=== PATIENT | female | born 1935 ===

== ENCOUNTER 2016-12-07 02:36 | Observation (INO) | payer MEDICARE, MEDICAID ==
[2016-12-07 02:36] VITALS: BMI 21.6
[2016-12-07] MEDS ORDERED: Sterile Water 10 ML IV ONE (02:46)
[2016-12-07] MEDS ORDERED: Iohexol 240 (50 ml) PO ONE (03:06)
[2016-12-07] MEDS ORDERED: Sodium Chloride 0.9% 1,000 ML IV STA ×2 (03:12→06:44)
--- NOTE | 2016-12-07 03:28 | ED PDOC ---
HPI:Nausea, Vomiting, Diarrhea Time Seen by Provider: 12/07/16 02:40 Chief Complaint (Nursing): GI Problem Chief Complaint (Provider): vomiting History Per: Patient, EMS History/Exam Limitations: no limitations Onset/Duration Of Symptoms: Hrs (2) Current Symptoms Are (Timing): Still Present Have you had recent travel within the past 21 days to any of the following countries: [place], [place], [place] or [place]?: No Additional Complaint(s): 81yo female presents to the ED, sent from [facility], for evaluation of vomiting x 2 hours with abdominal distension. jail reports brown colored fluid with food in vomitus. Of note, patient is DNR and DNI. No other medical complaints. Past Medical History Reviewed: Historical Data, Nursing Documentation, Vital Signs Vital Signs: Last Vital Signs Temp 98.8 F 12/07/16 02:38 Pulse 71 12/07/16 02:38 Resp 14 12/07/16 02:38 BP 131/72 12/07/16 02:38 Pulse Ox 98 12/07/16 02:38 - Medical History PMH: Anxiety, Arthritis, Dementia, Depression, Diabetes, Gastritis, HTN, Hypercholesterolemia, Hypothyroidism, Multiple Sclerosis Denies: CHF, COPD, Chronic Kidney Disease, Rheumatoid Arthritis - Surgical History Surgical History: No Surg Hx - Family History Family History: States: No Known Family Hx - Home Medications Home Medications: Ambulatory Orders Medication Instructions Recorded Acetaminophen [Tylenol 325mg tab] 650 mg PO Q4 PRN 05/21/16 Atorvastatin [Lipitor] 10 mg PO HS 05/21/16 Calcium Carbonate/Vitamin D3 1 tab PO DAILY 05/21/16 [Oyster Shell Calcium Tablet] Docusate Sodium 200 mg PO HS 05/21/16 Gabapentin [Neurontin] 300 mg PO TID 05/21/16 Lactulose [Generlac] 30 ml PO HS 05/21/16 Latanoprost 0.005% Opht [Xalatan 1 drop OU HS 05/21/16 Opht] Levothyroxine [Synthroid] 75 mcg PO DAILY 05/21/16 Lipase/Protease/Amylase [Enoch Hess 48,000 units PO TID 05/21/16 24,000 Units Capsule] Magnesium Hydroxide [Milk Of 30 ml PO MWF PRN 05/21/16 Magnesia] [id number] Ethyl Esters [OMEGA 3] 2,000 mg PO BID 05/21/16 Pantoprazole [Protonix EC Tab] 20 mg PO DAILY 05/21/16 Polyethylene Glycol 3350 [Miralax] 17 gm PO DAILY 05/21/16 Propylene Glycol/Peg 400 [Systane 1 drop OU TID 05/21/16 Liquid Gel Eye Drops] Simethicone [Gas Relief] 125 mg PO TID 05/21/16 fentaNYL 75 mcg/hr [Duragesic 1 patch TD Q3D 05/21/16 Patch 75 mcg/hr] Ascorbic Acid [Vitamin C 500 mg 500 mg PO DAILY 11/21/16 Tab] Ezetimibe [Zetia] 10 mg PO HS 11/21/16 Insulin Aspart, Recombinant 4 unit SUBCUT DIN 11/21/16 [Novolog] Linagliptin [Tradjenta] 5 mg PO DAILY 11/21/16 Multivitamin [One Daily 1 tab PO DAILY 11/21/16 Multivitamin] Acetaminophen [Tylenol 325mg tab] 650 mg PO Q4 PRN 12/07/16 Benzocaine/Menthol [Cepacol Sore 1 tab PO Q6 PRN 12/07/16 Throat Lozenge] Dorzolamide 2%/Timolol 0.5% 1 drop OU BID 12/07/16 [Cosopt 2%-0.5% Opht] Morphine [Morphine Immediate 15 mg PO Q12 PRN 12/07/16 Release Tab] Ondansetron HCl [Zofran] 8 mg PO Q8 PRN 12/07/16 Prochlorperazine [Compro] 25 mg [place] Q12 PRN 12/07/16 Sulfamethoxazole/Trimethoprim 1 tab PO Q12 #20 tab 12/08/16 [Bactrim DS Tab] - Allergies Allergies/Adverse Reactions: Allergies Allergy/AdvReac Type Severity Reaction Status Date / Time ciprofloxacin [From Cipro] Allergy RASH Verified 10/07/15 12:02 ciprofloxacin HCl Allergy RASH Verified 10/07/15 12:02 [From Cipro] Review of Systems ROS Statement: Except As Marked, All Systems Reviewed And Found Negative Gastrointestinal: Positive for: Vomiting, Other (abd distension ) Physical Exam - Reviewed Nursing Documentation Reviewed: Yes Vital Signs Reviewed: Yes - Physical Exam Appears: Positive for: No Acute Distress (actively vomiting, vomitus is brown, not dark, no blood ) Head Exam: Positive for: ATRAUMATIC, NORMAL INSPECTION, NORMOCEPHALIC Skin: Positive for: Normal Color, Warm, Dry Eye Exam: Positive for: Normal appearance, EOMI, PERRL ENT: Positive for: Normal ENT Inspection Neck: Positive for: Normal, Painless ROM, Supple Cardiovascular/Chest: Positive for: Regular Rate, Rhythm. Negative for: Murmur , Tachycardia Respiratory: Positive for: Normal Breath Sounds. Negative for: Wheezing, Respiratory Distress Gastrointestinal/Abdominal: Positive for: Soft, Tenderness (diffuse ), Distended Back: Positive for: Normal Inspection. Negative for: L CVA Tenderness, R CVA Tenderness Rectal: Positive for: Other (yellow stool, guaiac negative ) Extremity: Positive for: Normal ROM. Negative for: Deformity, Swelling Neurologic/Psych: Positive for: Alert, Oriented - Laboratory Results Result Diagrams: 12/08/16 05:55 12/08/16 05:55 - ECG O2 Sat by Pulse Oximetry: 98 Pulse Ox Interpretation: Normal (RA) Medical Decision Making Medical Decision Makin: Impression: possible upper GI bleed although unlikely Plan: Labs ABG shock panel CT A/P CXR Morphine 4mg IVP, Pepcid 20mg IVP, Protonix 40mg IVP, Zofran 4mg IVP, IVF reassess After NG tube placement and suctioning of gastric contents patient reports pain has completely resolved and abdomen is less distended. Patient states she does not need morphine. 0636: CT A/P impression: The wall is thickened and indistinct at the rectosigmoid junction it is at least partially due to motion. Clinical correlation recommended with symptoms in this region. Fullness and prominent wall enhancement of the renal collecting systems and ureters similar to prior could be due to chronic infectious/inflammatory etiology. Recommend correlation with urinalysis. 0644: Case discussed with Dr. Chiu who recommends admission for UTI. Scribe Attestation: Documented by Fred Haas acting as a scribe for Mahendra Steele MD. Provider Scribe Attestation: All medical record entries made by the Scribe were at my direction and personally dictated by me. I have reviewed the chart and agree that the record accurately reflects my personal performance of the history, physical exam, medical decision making, and the department course for this patient. I have also personally directed, reviewed, and agree with the discharge instructions and disposition. Disposition - Clinical Impression Clinical Impression: UTI (lower urinary tract infection), Vomiting - Patient ED Disposition Is Patient to be Admitted: Yes Discussed With : Jameson Chiu - Disposition Disposition Time: 06:45 Condition: FAIR
[2016-12-07 03:35] LABS: ABG ALLEN TEST YES; ARTERIAL BLOOD GAS HCO3 28.8 mmol/L (21-28); ARTERIAL BLOOD GAS MODE ROOM AIR; ARTERIAL BLOOD GAS PH 7.44 (7.35-7.45); ARTERIAL BLOOD GAS PO2 85 mm/Hg (80-100)
[2016-12-07] MEDS ORDERED: Iohexol 240 (50 ml) ONE (03:44)
[2016-12-07 03:52] LABS: ALB/GLOB RATIO 1.2 (1.0-2.1); ALKALINE PHOSPHATASE 83 U/L (38-126); ALT/SGPT 49 U/L (9-52); AST/SGOT 41 U/L (14-36); BILIRUBIN,TOTAL 0.6 mg/dl (0.2-1.3); BLOOD UREA NITROGEN 21 mg/dl (7-17); CALCIUM 9.7 mg/dL (8.4-10.2); CARBON DIOXIDE 27 mmol/L (22-30); CHLORIDE 101 mmol/L (98-107); GFR AFRICAN-AMERICAN 58; GLUCOSE,RANDOM 288 mg/dL (65-105); LIPASE 276 U/L (23-300); POTASSIUM 3.4 MMOL/L (3.6-5.0); SODIUM 140 mmol/l (132-148); TOTAL PROTEIN 7.7 G/DL (6.3-8.2)
[2016-12-07 04:28] LABS: BASO # 0.1 K/uL (0.0-0.2); BASO % 0.7 % (0.0-2.0); EOS # 0.1 K/uL (0.0-0.7); EOS % 1.1 % (0.0-4.0); HEMATOCRIT 40.7 % (34.0-47.0); LYMPH # 1.1 K/uL (1.0-4.3); LYMPH % 11.5 % (20.0-40.0); MEAN CELL VOLUME 93.2 fl (81.0-99.0); MEAN CORPUSCULAR HEMOGLOBIN 30.3 pg (27.0-31.0); MEAN CORPUSCULAR HGB CONC 32.5 g/dL (33.0-37.0); MEAN PLATELET VOLUME 10.3 fl (7.2-11.7); MONO # 0.2 K/uL (0.0-0.8); MONO % 2.6 % (0.0-10.0); NEUT # 7.8 K/uL (1.8-7.0); NEUT % 84.1 % (50.0-75.0); RED CELL DISTRIBUTION WIDTH 14.9 % (11.5-14.5)
[2016-12-07 04:30] LABS: WHITE BLOOD COUNT 9.3 K/uL (4.8-10.8)
[2016-12-07 04:52] LABS: RBC URINE 6 /hpf (0-3); URINE BACTERIA MANY (<OCC); URINE BILIRUBIN NEGATIVE (NEGATIVE); URINE BLOOD SMALL (NEGATIVE); URINE COLOR YELLOW (YELLOW); URINE GLUCOSE (UA) NEG (Normal); URINE KETONE NEGATIVE (NEGATIVE); URINE LEUKOCYTE ESTERASE LARGE Leu/uL (Negative); URINE PROTEIN 100 mg/dL (NEGATIVE); URINE UROBILINOGEN 0.2-1.0 mg/dL (0.2-1.0); WBC CLUMPS MANY /hpf; WBC URINE 2045 /hpf (0-5)
[2016-12-07 04:53] LABS: TRANSITIONAL EPITHIAL 2 /hpf (0-3)
[2016-12-07] MEDS ORDERED: Iohexol 300 100 ML IJ ONE (05:26)
[2016-12-07] MEDS ORDERED: Sodium Chloride 0.9% 50 ML IV ONE (05:27)
--- NOTE | 2016-12-07 06:36 | CT ---
EXAM: CT Abdomen and Pelvis With Intravenous Contrast. CLINICAL HISTORY: 81 years old, female; Signs and symptoms; Vomiting; Additional info: Abd distension, vomiting TECHNIQUE: Axial computed tomography images of the abdomen and pelvis with intravenous contrast. This CT exam was performed using one or more of the following dose reduction techniques: automated exposure control, adjustment of the mA and/or kV according to patient size, and/or use of iterative reconstruction technique. Coronal and sagittal reformatted images were created and reviewed. CONTRAST: 90 mL of [id number] administered intravenously. EXAM DATE/TIME: 12/07/2016 3:11 AM COMPARISON: CT - ABD PELVIS IV CONTRAST ONLY 09/11/2015 1:46:24 PM FINDINGS: Stable partial calcified nodule in the right lower lung unchanged. Platelike atelectasis left lower lung. Feeding tube with tip in the distal gastric lumen. Again seen is fullness of the renal collecting system and ureters with prominent wall enhancement of the collecting system wall and ureters.There is mild perinephric stranding greater on the right. Barone catheter. Urinary bladder is underdistended. Punctate area of low attenuation in the left hepatic lobe unchanged. The spleen is normal. The pancreas is normal. No gallstones. Moderate amount of stool in the colon. Questionable wall thickening of the rectosigmoid junction versus motion and underdistention. A normal appendix is identified axial image 55. Again seen are numerous bulky calcifications within the uterus felt to represent degenerated fibroids. IMPRESSION: The wall is thickened and indistinct at the rectosigmoid junction it is at least partially due to motion. Clinical correlation recommended with symptoms in this region. Fullness and prominent wall enhancement of the renal collecting systems and ureters similar to prior could be due to chronic infectious/inflammatory etiology. Recommend correlation with urinalysis.
[2016-12-07] MEDS ORDERED: cefTRIAXone (Rocephin) 1 gm Inj ONE (06:50)
[2016-12-07] MEDS: cefTRIAXone 2 GM in Sodium Chloride 0.9% 100 ML IVPB SCH (07:17)
[2016-12-07] MEDS ORDERED: HYDROmorphone 0.5 mg/0.5 ml ISec ONE (12:47)
--- NOTE | 2016-12-07 13:27 | RAD ---
PROCEDURE: CHEST RADIOGRAPH, 1 VIEW HISTORY: Abdominal pain, vomiting COMPARISON: 05/21/2016 FINDINGS: The nasogastric tube terminates in the stomach. LUNGS: The lungs are well inflated and clear. PLEURA: No pneumothorax or pleural fluid seen. CARDIOVASCULAR: The heart is normal in size. OSSEOUS STRUCTURES: No significant abnormalities. VISUALIZED UPPER ABDOMEN: Normal. OTHER FINDINGS: None. IMPRESSION: No active pulmonary disease.
--- NOTE | 2016-12-07 13:51 | CP.PCM.HP ---
History of Present Illness - History of Present Illness History of Present Illness: CC: Vomiting. 81 y/o F, [facility] resident brought to ER [facility] via EMS due to be vomiting, onset 2 hrs [employer] with no relief. Pt was sent from [place] for evaluation of vomiting Brown colored fluid and vomiting food associated to nausea. Worsening symptoms: Abdominal distension and having red tinged in the emesis. 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 Pt denied: Fever, chills, dizziness, syncope, CP, SOB cough, sick contact, recent travel. PMHx: Deena's Disease, DMII, Dyslipidemia, Hyperthyroidism, Chronic Paraplegia, Chronic depression, Constipation, Urinary Incontinence, Gastritis, Dementia, Glaucoma L eye, Hx of Singles, Hx of UTI. CXR shows: No active disease. CT Abd/Pelv: The wall is thickened and indistinct at the rectosigmoid junction it is at least partially due to motion. Fullness and prominent wall enhancement of the renal collecting systems and uteres similar to prior could be due to chronic infectious/inflammatory etiology. Present on Admission - Present on Admission Any Indicators Present on Admission: Yes Decubitus Ulcer Present: Yes (Sacrum) Review of Systems - Constitutional Constitutional: Weakness - EENT Eyes: Requires Corrective Lenses, Loss of Vision (L eye glaucoma) Ears: Other (negative) Nose/Mouth/Throat: Other (negative) - Cardiovascular Cardiovascular: Other (negative) - Respiratory Respiratory: Other (negative) - Gastrointestinal Gastrointestinal: Abdominal Pain, Coffee Ground Emesis, Constipation, Nausea, Vomiting - Genitourinary Genitourinary: Urinary Incontinence - Musculoskeletal Musculoskeletal: Arthralgias, Back Pain - Integumentary Integumentary: Skin Ulcer (Sacral area) - Neurological Neurological: Focal Weakness, Memory Loss (mild) - Psychiatric Psychiatric: Depression - Endocrine Endocrine: Other (negative) - Hematologic/Lymphatic Hematologic: Other (negative) Past Patient History - Tetanus Immunizations Tetanus Immunization: Unknown - Past Medical History & Family History Past Medical History?: Yes Pertinent Family History: Unknown - Past Social History Smoking Status: Never Smoked Alcohol: None Drugs: Denies Home Situation {Lives}: Half-Way - CARDIAC Hx Cardiac Disorders: Yes Hx Congestive Heart Failure: No Hx Hypercholesterolemia: Yes Hx Hypertension: Yes - PULMONARY Hx Respiratory Disorders: No Hx Chronic Obstructive Pulmonary Disease (COPD): No - NEUROLOGICAL Hx Neurological Disorder: Yes Hx Dementia: Yes Hx Multiple Sclerosis: Yes - HEENT Hx HEENT Problems: Yes Hx Glaucoma: Yes (left eye) - RENAL Hx Chronic Kidney Disease: No - ENDOCRINE/METABOLIC Hx Hypothyroidism: Yes - HEMATOLOGICAL/ONCOLOGICAL Hx Blood Disorders: Yes Hx Chemotherapy: Yes Hx Shingles: Yes - INTEGUMENTARY Hx Dermatological Problems: No - MUSCULOSKELETAL/RHEUMATOLOGICAL Hx Musculoskeletal Disorders: Yes Hx Arthritis: Yes Hx Rheumatoid Arthritis: No - GASTROINTESTINAL Hx Gastrointestinal Disorders: Yes Hx Gastritis: Yes - GENITOURINARY/GYNECOLOGICAL Hx Genitourinary Disorders: Yes Hx Incontinence: Yes Hx Urinary Tract Infection: Yes Other/Comment: urosepsis - PSYCHIATRIC Hx Psychophysiologic Disorder: Yes Hx Anxiety: Yes Hx Depression: Yes - SURGICAL HISTORY Hx Surgeries: No - ANESTHESIA Hx Anesthesia: No Meds Allergies/Adverse Reactions: Allergies Allergy/AdvReac Type Severity Reaction Status Date / Time ciprofloxacin [From Cipro] Allergy RASH Verified 10/07/15 12:02 ciprofloxacin HCl Allergy RASH Verified 10/07/15 12:02 [From Cipro] Physical Exam - Constitutional Appears: No Acute Distress - Head Exam Head Exam: NORMAL INSPECTION - Eye Exam Eye Exam: PERRL - ENT Exam ENT Exam: Normal Oropharynx - Neck Exam Neck exam: Positive for: Normal Inspection - Respiratory Exam Respiratory Exam: NORMAL BREATHING PATTERN - Cardiovascular Exam Cardiovascular Exam: REGULAR RHYTHM - GI/Abdominal Exam GI & Abdominal Exam: Distended (mild), Hypoactive Bowel Sounds, Soft - Extremities Exam Additional comments: Paralysis lower extremities, no sensation in lower extremities, R-L foot droop. - Back Exam Additional comments: Sacral ulcer - Neurological Exam Neurological exam: Alert, Oriented x3 Additional comments: Focal weakness, sensory deficit lower extremities. - Psychiatric Exam Psychiatric exam: Depressed - Skin Skin Exam: Warm Results - Vital Signs Recent Vital Signs: Last Vital Signs Temp 98.3 F 12/07/16 09:22 Pulse 61 12/07/16 09:22 Resp 19 12/07/16 09:22 BP 137/74 12/07/16 09:22 Pulse Ox 97 12/07/16 09:22 reviewed Srinivasan - Labs Result Diagrams: 12/07/16 03:20 12/07/16 03:20 Labs: Laboratory Results - last 24 hr 12/07/16 06:50 Lactic Acid 1.3 reviewed J.P. - Imaging and Cardiology Chest x-ray Status: Report reviewed by me (Srinivasan) CT scan - abdomen Status: Report reviewed by me (Srinivasan) CT scan - pelvis Status: Report reviewed by me (Srinivasan) Assessment & Plan (1) Vomiting Status: Acute Priority: High (2) Chronic paraplegia Status: Chronic Priority: Medium (3) Devic's disease Status: Chronic Priority: High (4) Chronic constipation Status: Chronic Priority: Medium (5) Diabetes mellitus Status: Chronic Priority: Medium (6) Hypothyroid Status: Chronic Priority: Medium (7) Dyslipidemia Status: Chronic Priority: Low - Assessment and Plan (Free Text) Plan: Continue Ceftriaxone, Dilaudid, Humalog, Januvia, Lipitor and rest of Tx. f/u PT , OT eval, f/u Blood C-S, U C-S - Date & Time Date: 12/07/16 Time: 13:40
[2016-12-07] MEDS ORDERED: Sodium Chloride 0.9% 1,000 ML IV SCH (17:30)
[2016-12-07] MEDS: Sodium Chloride 0.9% 1,000 ML IV SCH (17:30)
[2016-12-07] MEDS ORDERED: Morphine 15 mg Immediate Release Tab PO PRN (17:47)
[2016-12-07] MEDS ORDERED: Magnesium Hydroxide Susp 30 ml UD PO PRN (17:47)
[2016-12-07] MEDS: Benzocaine/Menthol (Cepacol) Lozenge PO PRN (18:12)
[2016-12-07 21:50] VITALS: RESP 20
[2016-12-07] MEDS: Insulin Lispro (humaLOG) 100 Units/ml Inj SC SCH (22:30)
[2016-12-08] MEDS: Latanoprost 0.005% Opht SOUTION OU SCH ×2 (03:33→03:34)
[2016-12-08] MEDS ORDERED: Levothyroxine 75 MCG TAB PO SCH (06:30)
[2016-12-08 07:05] LABS: BASO # 0.1 K/uL (0.0-0.2); BASO % 0.9 % (0.0-2.0); EOS # 0.2 K/uL (0.0-0.7); EOS % 2.1 % (0.0-4.0); HEMATOCRIT 31.6 % (34.0-47.0); LYMPH # 1.8 K/uL (1.0-4.3); LYMPH % 24.8 % (20.0-40.0); MEAN CELL VOLUME 94.1 fl (81.0-99.0); MEAN CORPUSCULAR HEMOGLOBIN 30.5 pg (27.0-31.0); MEAN CORPUSCULAR HGB CONC 32.4 g/dL (33.0-37.0); MEAN PLATELET VOLUME 10.4 fl (7.2-11.7); MONO # 0.6 K/uL (0.0-0.8); MONO % 8.8 % (0.0-10.0); NEUT # 4.5 K/uL (1.8-7.0); NEUT % 63.4 % (50.0-75.0); RED CELL DISTRIBUTION WIDTH 14.8 % (11.5-14.5); WHITE BLOOD COUNT 7.1 K/uL (4.8-10.8)
[2016-12-08 07:08] LABS: ALB/GLOB RATIO 1.2 (1.0-2.1); ALKALINE PHOSPHATASE 62 U/L (38-126); ALT/SGPT 41 U/L (9-52); AST/SGOT 27 U/L (14-36); BILIRUBIN,TOTAL 0.4 mg/dl (0.2-1.3); BLOOD UREA NITROGEN 14 mg/dl (7-17); CALCIUM 8.1 mg/dL (8.4-10.2); CARBON DIOXIDE 23 mmol/L (22-30); CHLORIDE 108 mmol/L (98-107); CHOLESTEROL 102 mg/dL (0-199); GFR AFRICAN-AMERICAN > 60; GLUCOSE,RANDOM 139 mg/dL (65-105); POTASSIUM 4.2 MMOL/L (3.6-5.0); SODIUM 142 mmol/l (132-148)
[2016-12-08 07:39] LABS: THYROID STIMULATING HORMONE 1.05 mIU/ML (0.46-4.68)
[2016-12-08] MEDS ORDERED: Multivitamin With Minerals Tab PO SCH (09:00)
[2016-12-08] MEDS ORDERED: LIPASE PO SCH (09:00)
[2016-12-08] MEDS ORDERED: Patient's Own Med (Dorzolamide 2%/Timolol 0.5% [Cosopt 2%-0.5% Opht] 1 DROP) OU SCH (09:00)
[2016-12-08] MEDS ORDERED: PEG OU SCH (09:00)
[2016-12-08] MEDS ORDERED: [UNRECOGNIZED DRUG - OTHER] PO SCH (09:00)
[2016-12-08] MEDS ORDERED: PROTEASE PO SCH (09:00)
[2016-12-08] MEDS ORDERED: PROPYLENE GLYCOL OU SCH (09:00)
[2016-12-08] MEDS ORDERED: POLYETHYLENE GLYCOL 3350 17 GM/Dose PACKET PO SCH (09:00)
[2016-12-08] MEDS ORDERED: Calcium-Vit D 500 mg-200 Units Tab UD PO SCH (09:00)
[2016-12-08] MEDS ORDERED: AMYLASE PO SCH (09:00)
[2016-12-08] MEDS ORDERED: Pantoprazole 20 mg EC Tab PO SCH (09:00)
[2016-12-08] MEDS: Insulin Lispro (humaLOG) 100 Units/ml Inj SC SCH ×2 (09:03→11:30)
[2016-12-08] MEDS: Sodium Chloride 0.9% 1,000 ML IV SCH (09:05)
[2016-12-08] MEDS: Omega-3-Acid Ethyl Esters 1 GM Cap PO SCH ×2 (09:24→16:45)
[2016-12-08] MEDS: Simethicone 80 mg Chewtab PO SCH ×2 (09:25→13:00)
[2016-12-08] MEDS: cefTRIAXone 2 GM in Sodium Chloride 0.9% 100 ML IVPB SCH (09:35)
[2016-12-08] MEDS: Dorzolamide 2% Ophth Soln OU SCH ×2 (09:37→16:48)
--- NOTE | 2016-12-08 14:34 | CP.PCM.PCO ---
Assessment/Plan - Assessment/Plan Assessment (Free Text): Pt stable in no apparent distress. Tolerated lunch, denies abdominal pain, n/c, cp, f/c. Pt seen and cleared for transfer back to [place] by Dr. Cheung and Dr. Chiu. Per Dr. Chiu, pt to continue taking bactrim DS while in [place]. He will f/u urine culture. Pt and RN aware of plan - Consults Consult Orders: Consultations 12/07/16 18:56 Nursing Referral for Wound Care Routine Comment: Physician Instructions: Reason For Exam: sacral decubitus - Problems Patient Problems: Problem List (Active/Current) Problem Status Priority Diagnosed Code Hyponatremia Acute High E87.1 Lethargy Acute R53.83 Fever Resolved 780.60
[2016-12-08] MEDS: Benzocaine/Menthol (Cepacol) Lozenge PO PRN (16:46)
--- NOTE | 2016-12-08 17:24 | CP.PCM.PN ---
Subjective - Date & Time of Evaluation Date of Evaluation: 12/08/16 - Subjective Subjective: F/U Vomiting/Nausea. No c/o, no vomiting, no nausea, no abdominal pain, eating well. Objective - Vital Signs/Intake and Output Vital Signs (last 24 hours): Temp Pulse Resp BP Pulse Ox 98.8 F 69 20 130/69 96 12/07/16 21:49 12/07/16 21:49 12/07/16 21:49 12/07/16 21:49 12/07/16 21:49 Intake and Output: 12/08/16 12/08/16 06:59 18:59 Output Total 850 Balance -850 - Medications Medications: Current Medications Acetaminophen (Tylenol 325mg Tab) 650 mg PO Q4 PRN PRN Reason: Pain, Mild (1-3) Acetaminophen (Tylenol 325mg Tab) 650 mg PO Q4 PRN PRN Reason: Fever >100.4 F Ascorbic Acid (Vitamin C 500 Mg Tab) 500 mg PO DAILY [facility] Last Admin: 12/08/16 09:36 Dose: 500 mg Atorvastatin Calcium (Lipitor) 10 mg PO [facility] Last Admin: 12/07/16 21:17 Dose: 10 mg Benzocaine/Menthol (Cepacol Sore Throat) 1 rosalie PO Q6 PRN PRN Reason: Sore Throat Last Admin: 12/08/16 16:46 Dose: 1 roaslie Calcium/Vitamin D (Oyster Shell Calcium/Vitamin D 500 Mg-200 Iu) 1 tab PO DAILY [facility] Last Admin: 12/08/16 09:27 Dose: 1 tab Docusate Sodium (Colace) 200 mg PO [facility] Last Admin: 12/07/16 21:12 Dose: Not Given Dorzolamide HCl (Trusopt) 1 drop OU BID [facility] Last Admin: 12/08/16 16:48 Dose: 1 drop Ezetimibe (Zetia) 10 mg PO [facility] Last Admin: 12/07/16 21:13 Dose: 10 mg Fentanyl (Duragesic) 1 patch TD Q3D [facility] PRN Reason: Protocol Last Admin: 12/07/16 18:14 Dose: 1 patch Gabapentin (Neurontin) 300 mg PO TID [facility] Last Admin: 12/08/16 16:48 Dose: 300 mg Home Med (Lipase/Protease/Amylase [Creon Dr 24,000 Units Capsule]) 48,000 units PO TID [facility] Home Med (Propylene Glycol/Peg 400 [Systane Liquid Gel Eye Drops]) 1 drop OU TID [facility] Hydromorphone HCl (Dilaudid) 1 mg IVP Q4 PRN PRN Reason: Pain, moderate (4-7) Last Admin: 12/07/16 21:06 Dose: 1 mg Ceftriaxone Sodium 2 gm/ (Sodium Chloride) 100 mls @ 100 mls/hr IVPB DAILY [facility] Last Admin: 12/08/16 09:35 Dose: 100 mls/hr Sodium Chloride (Sodium Chloride 0.9%) 1,000 mls @ 80 mls/hr IV [id number] [facility] Last Admin: 12/08/16 09:05 Dose: 80 mls/hr Insulin Human Lispro (Humalog) 0 units SC ACHS [facility] PRN Reason: Protocol Last Admin: 12/08/16 11:30 Dose: 2 u Lactulose (Enulose) 20 gm PO HS [facility] Last Admin: 12/07/16 21:12 Dose: Not Given Latanoprost (Xalatan Opht) 1 drop OU [facility] Last Admin: 12/08/16 03:34 Dose: Not Given Levothyroxine Sodium (Synthroid) 75 mcg PO DAILY@0630 [facility] Last Admin: 12/08/16 07:00 Dose: 75 mcg Magnesium Hydroxide (Milk Of Magnesia) 30 ml PO MWF PRN PRN Reason: Constipation Morphine Sulfate (Morphine Immediate Release Tab) 15 mg PO Q12 PRN PRN Reason: pain Multivitamins/Minerals (Therapeutic-M Tab) 1 tab PO DAILY [facility] Last Admin: 12/08/16 09:37 Dose: 1 tab Ggust-3-[id number] Ethyl Esters (Lovaza) 2 gm PO BID [facility] Last Admin: 12/08/16 16:45 Dose: 2 gm Ondansetron HCl (Zofran Tab) 8 mg PO Q8 PRN PRN Reason: Nausea/Vomiting Pantoprazole Sodium (Protonix Ec Tab) 20 mg PO DAILY [facility] Last Admin: 12/08/16 09:28 Dose: 20 mg Polyethylene Glycol (Miralax) 17 gm PO DAILY [facility] Last Admin: 12/08/16 09:25 Dose: 17 gm Prochlorperazine (Compazine Rectal Supp) 25 mg [place] Q12 PRN PRN Reason: Nausea/Vomiting Simethicone (Mylicon Chew Tab) 120 mg PO TID [facility] Last Admin: 12/08/16 13:00 Dose: 120 mg Sitagliptin Phosphate (Januvia) 50 mg PO DAILY [facility] Last Admin: 12/08/16 09:24 Dose: 50 mg Timolol Maleate (Timoptic 0.5% Ophth Soln) 1 drop OU BID [facility] Last Admin: 12/08/16 16:48 Dose: 1 drop Trimethoprim/Sulfamethoxazole (Bactrim Ds Tab) 1 tab PO Q12 [facility] Last Admin: 12/08/16 16:43 Dose: 1 tab - Labs Labs: 12/08/16 05:55 12/08/16 05:55 - Constitutional Appears: No Acute Distress - Head Exam Head Exam: NORMAL INSPECTION - Eye Exam Eye Exam: PERRL - ENT Exam ENT Exam: Normal Oropharynx - Neck Exam Neck Exam: Normal Inspection - Respiratory Exam Respiratory Exam: NORMAL BREATHING PATTERN - Cardiovascular Exam Cardiovascular Exam: REGULAR RHYTHM - GI/Abdominal Exam GI & Abdominal Exam: Soft, Normal Bowel Sounds - Extremities Exam Additional comments: Paralysis lower extremities, no sensation in lower extremities, R-L foot droop. - Back Exam Additional comments: Sacral ulcer Assessment and Plan (1) Vomiting Status: Acute (2) Chronic paraplegia Status: Chronic (3) Devic's disease Status: Chronic (4) Chronic constipation Status: Chronic (5) Diabetes mellitus Status: Chronic (6) Hypothyroid Status: Chronic (7) Dyslipidemia Status: Chronic (8) UTI (urinary tract infection) Status: Acute - Assessment and Plan (Free Text) Plan: Pt improved and stable for transfer back to [place]. Pending U C-S, f/u on Sunday, discharged on Cipro.
[2016-12-08 18:09] VITALS: BP 152/84; PULSE 52; TEMP 98.4
[2016-12-08] MEDS ORDERED: Tmp-Smz 800 mg-160 mg DS Tab PO SCH (21:00)
[2016-12-09 19:00] VITALS: O2SAT 98
== END 2016-12-08 18:25 ==
LOC: H.ER 02:36 → H.ERHOLD 06:45 → H.MEDSURG1 15:28
PROVIDERS: ADMIT Internal Medicine Pulmonary Disease; ATTEND Internal Medicine Pulmonary Disease
DX: N39.0 Urinary tract infection, site not specified (principal); B96.5 Pseudomonas (aeruginosa) (mallei) (pseudomallei) as the cause of diseases classified elsewhere; E11.9 Type 2 diabetes mellitus without complications; E87.1 Hypo-osmolality and hyponatremia; I10 Essential (primary) hypertension; E03.9 Hypothyroidism, unspecified; F03.90 Unspecified dementia, unspecified severity, without behavioral disturbance, psychotic disturbance, mood disturbance, and anxiety; G35 Multiple sclerosis; K29.70 Gastritis, unspecified, without bleeding; F41.9 Anxiety disorder, unspecified; M19.90 Unspecified osteoarthritis, unspecified site; E78.00 Pure hypercholesterolemia, unspecified; G36.0 Neuromyelitis optica [Devic]; E78.5 Hyperlipidemia, unspecified; G82.20 Paraplegia, unspecified; L89.152 Pressure ulcer of sacral region, stage 2; R32 Unspecified urinary incontinence; H40.9 Unspecified glaucoma; K59.09 Other constipation; Z66 Do not resuscitate; Z87.440 Personal history of urinary (tract) infections
CPT/HCPCS: 36415; 71010; 74177; 80053; 80061; 81003; 82140; 82803; 82948; 83605; 83690; 84443; 84484; 85025; 86850; 86900; 87040; 87086; 87181; 96360; 96361; 96374; 99285; C9113; G0378; J0696; J1170; J2405; J7040; Q9966; Q9967

== ENCOUNTER 2017-03-13 11:06 | Observation (INO) | payer MEDICARE, MEDICAID ==
[2017-03-14 11:02] VITALS: BMI 21.7
[2017-03-14] MEDS ORDERED: SODIUM CHLORIDE 0.9% IV ONE ×2 (11:16→12:30)
[2017-03-14] MEDS ORDERED: RITUXIMAB IV ONE ×2 (11:16→12:30)
[2017-03-14] MEDS: Sodium Chloride 0.9% 500 ML IV SCH ×2 (11:25→12:56)
--- NOTE | 2017-03-14 11:30 | CP.PCM.CON ---
History of Present Illness - History of Present Illness History of Present Illness: This is a 81 yrs old female who was diagnosed to have Devic's disease 2 yr ago. She had been on other treatment before without nuch response. However since she has been on rituximab she has done extremetly well. She is here for the rituxan She has a past h/o HTN and DM. Past Patient History - Tetanus Immunizations Tetanus Immunization: Unknown - Past Medical History & Family History Past Medical History?: Yes - Past Social History Smoking Status: Never Smoked - CARDIAC Hx Cardiac Disorders: Yes Hx Congestive Heart Failure: No Hx Hypercholesterolemia: Yes Hx Hypertension: Yes - PULMONARY Hx Respiratory Disorders: No Hx Chronic Obstructive Pulmonary Disease (COPD): No - NEUROLOGICAL Hx Neurological Disorder: Yes Hx Dementia: Yes Hx Multiple Sclerosis: Yes - HEENT Hx HEENT Problems: Yes Hx Glaucoma: Yes (left eye) - RENAL Hx Chronic Kidney Disease: No - ENDOCRINE/METABOLIC Hx Endocrine Disorders: Yes Hx Diabetes Mellitus Type 2: Yes Hx Hypothyroidism: Yes - HEMATOLOGICAL/ONCOLOGICAL Hx Blood Disorders: Yes Hx Chemotherapy: Yes Hx Shingles: Yes - INTEGUMENTARY Hx Dermatological Problems: No - MUSCULOSKELETAL/RHEUMATOLOGICAL Hx Musculoskeletal Disorders: Yes Hx Arthritis: Yes Hx Falls: No Hx Rheumatoid Arthritis: No - GASTROINTESTINAL Hx Gastrointestinal Disorders: Yes Hx Gastritis: Yes - GENITOURINARY/GYNECOLOGICAL Hx Genitourinary Disorders: Yes Hx Incontinence: Yes Hx Urinary Tract Infection: Yes Other/Comment: urosepsis - PSYCHIATRIC Hx Psychophysiologic Disorder: Yes Hx Anxiety: Yes Hx Depression: Yes Hx Substance Use: No - SURGICAL HISTORY Hx Surgeries: No - ANESTHESIA Hx Anesthesia: No Meds Allergies/Adverse Reactions: Allergies Allergy/AdvReac Type Severity Reaction Status Date / Time ciprofloxacin [From Cipro] Allergy RASH Verified 10/07/15 12:02 ciprofloxacin HCl Allergy RASH Verified 10/07/15 12:02 [From Cipro] - Medications Medications: Current Medications Acetaminophen (Tylenol 325mg Tab) 650 mg PO STAT STA Stop: 03/14/17 11:17 Famotidine (Pepcid) 20 mg IVP STAT STA Stop: 03/14/17 11:16 Diphenhydramine HCl 25 mg/ (Sodium Chloride) 50.5 mls @ 101 mls/hr IVPB ONCE ONE Stop: 03/14/17 11:42 Dexamethasone 10 mg/ Sodium (Chloride) 51 mls @ 102 mls/hr IVPB ONCE ONE Stop: 03/14/17 11:42 Sodium Chloride (Sodium Chloride 0.9%) 500 mls @ 100 mls/hr IV .Q5H ADY Rituximab 585 mg/ Sodium (Chloride) 308.5 mls @ 0 mls/hr IV ONCE ONE PRN Reason: As Directed Stop: 03/14/17 11:17 Ondansetron HCl 16 mg/ Sodium (Chloride) 58 mls @ 116 mls/hr IVPB ONCE ONE Stop: 03/14/17 11:42 Physical Exam - Additional Findings Additional findings: Pjhysical exam; Alert, well opriented in no acute distress neck; Supple, n adenopathy Cheat; Clear, no rales or rhonchi Heart; RSR, no murmur Abd; Soft, no mass, no h/s megaly Assessment & Plan - Assessment and Plan (Free Text) Assessment: Impression; Devic's disease Plan: Plan; Since pt hada reaction to rituxan when given with usual titration, she receives it over 12 hrs and has no problems. - Date & Time Date: 03/14/17 Time: 11:35
[2017-03-14] MEDS ORDERED: Dexamethasone 10 MG in Sodium Chloride 0.9% 50 ML IVPB ONE (11:45)
[2017-03-14 11:51] LABS: BASO # 0.1 K/uL (0.0-0.2); BASO % 0.8 % (0.0-2.0); EOS # 0.2 K/uL (0.0-0.7); EOS % 2.4 % (0.0-4.0); HEMOGLOBIN 11.3 g/dL (12.0-16.0); LYMPH # 1.6 K/uL (1.0-4.3); LYMPH % 24.1 % (20.0-40.0); MEAN CELL VOLUME 96.4 fl (81.0-99.0); MEAN CORPUSCULAR HEMOGLOBIN 31.8 pg (27.0-31.0); MEAN PLATELET VOLUME 9.4 fl (7.2-11.7); MONO # 0.6 K/uL (0.0-0.8); MONO % 9.3 % (0.0-10.0); NEUT # 4.2 K/uL (1.8-7.0); NEUT % 63.4 % (50.0-75.0); NRBC % 0.3 % (0.0-0.0); RBC 3.54 Mil/uL (3.80-5.20); WHITE BLOOD COUNT 6.6 K/uL (4.8-10.8)
[2017-03-14 12:05] LABS: ALB/GLOB RATIO 1.3 (1.0-2.1); ALT/SGPT 41 U/L (9-52); AST/SGOT 45 U/L (14-36); BLOOD UREA NITROGEN 20 mg/dl (7-17); CALCIUM 8.6 mg/dL (8.4-10.2); GFR AFRICAN-AMERICAN > 60; GFR NON-AFRICAN AMERICAN > 60
[2017-03-14 12:23] VITALS: RESP 20
--- NOTE | 2017-03-14 16:23 | CP.PCM.HP ---
History of Present Illness - History of Present Illness History of Present Illness: CC: Deena's Disease. 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 Last admission for same Tx was on 01/17/17, Pt has no other c/ o. Pt denied: Fever, chills, n/v/d, abdominal pain, SOB, cough, CP, dizziness, sick contact. PMHx: Deena's Disease, High Cholesterol, DMII, Hypothyroidism, O/A, Dementia, Depression, Hx Shingles, Gastritis, Incontinence, UTI, Constipation. Present on Admission - Present on Admission Any Indicators Present on Admission: No Review of Systems - Constitutional Constitutional: Weakness - EENT Eyes: Requires Corrective Lenses Ears: Other (negative) Nose/Mouth/Throat: Other (negative) - Breasts Breasts: Other (negative) - Cardiovascular Cardiovascular: Other (negative) - Respiratory Respiratory: Other (negative) - Gastrointestinal Gastrointestinal: Heartburn - Genitourinary Genitourinary: Urinary Incontinence - Musculoskeletal Musculoskeletal: Arthralgias - Integumentary Integumentary: Other (negative) - Neurological Neurological: Other (Paraplegia) - Psychiatric Psychiatric: Depression - Endocrine Endocrine: Other (negative) - Hematologic/Lymphatic Hematologic: Other (negative) Past Patient History - Tetanus Immunizations Tetanus Immunization: Unknown - Past Medical History & Family History Past Medical History?: Yes Pertinent Family History: Unknown - Past Social History Smoking Status: Never Smoked Alcohol: None Drugs: Denies Home Situation {Lives}: Shelter - CARDIAC Hx Cardiac Disorders: Yes Hx Congestive Heart Failure: No Hx Hypercholesterolemia: Yes Hx Hypertension: Yes - PULMONARY Hx Respiratory Disorders: No Hx Chronic Obstructive Pulmonary Disease (COPD): No - NEUROLOGICAL Hx Neurological Disorder: Yes Hx Dementia: Yes Hx Multiple Sclerosis: Yes - HEENT Hx HEENT Problems: Yes Hx Glaucoma: Yes (left eye) - RENAL Hx Chronic Kidney Disease: No - ENDOCRINE/METABOLIC Hx Endocrine Disorders: Yes Hx Diabetes Mellitus Type 2: Yes Hx Hypothyroidism: Yes - HEMATOLOGICAL/ONCOLOGICAL Hx Blood Disorders: Yes Hx Chemotherapy: Yes Hx Shingles: Yes - INTEGUMENTARY Hx Dermatological Problems: No - MUSCULOSKELETAL/RHEUMATOLOGICAL Hx Musculoskeletal Disorders: Yes Hx Arthritis: Yes Hx Falls: No Hx Rheumatoid Arthritis: No - GASTROINTESTINAL Hx Gastrointestinal Disorders: Yes Hx Gastritis: Yes - GENITOURINARY/GYNECOLOGICAL Hx Genitourinary Disorders: Yes Hx Incontinence: Yes Hx Urinary Tract Infection: Yes Other/Comment: urosepsis - PSYCHIATRIC Hx Psychophysiologic Disorder: Yes Hx Anxiety: Yes Hx Depression: Yes Hx Substance Use: No - SURGICAL HISTORY Hx Surgeries: No - ANESTHESIA Hx Anesthesia: No Meds Allergies/Adverse Reactions: Allergies Allergy/AdvReac Type Severity Reaction Status Date / Time ciprofloxacin [From Cipro] Allergy RASH Verified 10/07/15 12:02 ciprofloxacin HCl Allergy RASH Verified 10/07/15 12:02 [From Cipro] Physical Exam - Constitutional Appears: No Acute Distress, Chronically Ill - Head Exam Head Exam: NORMAL INSPECTION - Eye Exam Eye Exam: PERRL - ENT Exam ENT Exam: Normal Oropharynx - Neck Exam Neck exam: Positive for: Normal Inspection - Respiratory Exam Respiratory Exam: NORMAL BREATHING PATTERN - Cardiovascular Exam Cardiovascular Exam: REGULAR RHYTHM - GI/Abdominal Exam GI & Abdominal Exam: Normal Bowel Sounds, Soft - Extremities Exam Additional comments: Paralysis L/E, R-L foot droop. - Back Exam Additional comments: Healed sacral ulcer - Neurological Exam Neurological exam: Alert Additional comments: Oriented at times, forgetful, focal weakness, sensory deficit L/E. - Psychiatric Exam Psychiatric exam: Depressed - Skin Skin Exam: Warm Results - Vital Signs Recent Vital Signs: Last Vital Signs Temp 97.8 F 03/14/17 16:17 Pulse 56 L 03/14/17 16:17 Resp 20 03/14/17 16:17 BP 131/59 L 03/14/17 16:17 Pulse Ox 94 L 03/14/17 16:17 reviewed J.P. - Labs Result Diagrams: 03/14/17 11:48 03/15/17 05:45 Labs: Laboratory Results - last 24 hr 03/14/17 03/14/17 11:48 11:48 WBC 6.6 RBC 3.54 L Hgb 11.3 L Hct 34.2 MCV 96.4 MCH 31.8 H MCHC 33.0 RDW 14.0 Plt Count 170 MPV 9.4 Neut % (Auto) 63.4 Lymph % (Auto) 24.1 Webster % (Auto) 9.3 Eos % (Auto) 2.4 Baso % (Auto) 0.8 Neut # 4.2 Lymph # 1.6 Webster # 0.6 Eos # 0.2 Baso # 0.1 Sodium 137 Potassium 5.4 H Chloride 105 Carbon Dioxide 23 Anion Gap 14 BUN 20 H Creatinine 0.9 Est GFR ( Amer) > 60 Est GFR (Non-Af Amer) > 60 Random Glucose 138 H Calcium 8.6 Total Bilirubin 0.7 AST 45 H D ALT 41 Alkaline Phosphatase 54 Total Protein 7.0 Albumin 4.0 Globulin 3.0 Albumin/Globulin Ratio 1.3 reviewed J.P. Assessment & Plan (1) Chronic paraplegia Status: Chronic Priority: High (2) DM II (diabetes mellitus, type II), controlled Status: Chronic Priority: Medium (3) Devic's disease Status: Chronic Priority: High (4) Dyslipidemia Status: Chronic Priority: Low (5) Gastritis Status: Chronic Priority: Medium (6) Hypothyroid Status: Chronic Priority: Medium - Assessment and Plan (Free Text) Plan: For Rituximab infusion. - Date & Time Date: 03/14/17 Time: 12:50
[2017-03-15 06:57] LABS: BLOOD UREA NITROGEN 21 mg/dl (7-17); CALCIUM 8.6 mg/dL (8.4-10.2); GFR AFRICAN-AMERICAN > 60; GFR NON-AFRICAN AMERICAN 53
--- NOTE | 2017-03-15 08:33 | CP.PCM.CON ---
History of Present Illness - History of Present Illness History of Present Illness: 81 y/o female with PMHx of DM, hypothyroidism, Devic's disease, HTN, heart disease, HLD, multiple sclerosis, chronic paraplegia, gastritis, depression, glaucoma, UTI and shingles is seen by podiatry at bedside for painful elongated toenails. Patient states she lives in [facility] and normally they are cut for her there. Patient admits to complete numbness and loss of feeling in the legs. Patient denies any allergies to medications but her medical records indicate an allergy to Ciprofloxacin. Patient denies alcohol, cigarette or illicit drug use. Review of Systems - Review of Systems All systems: reviewed and no additional remarkable complaints except (per HPI) Past Patient History - Tetanus Immunizations Tetanus Immunization: Unknown - Past Medical History & Family History Past Medical History?: Yes - Past Social History Smoking Status: Never Smoked - CARDIAC Hx Cardiac Disorders: Yes Hx Congestive Heart Failure: No Hx Hypercholesterolemia: Yes Hx Hypertension: Yes - PULMONARY Hx Respiratory Disorders: No Hx Chronic Obstructive Pulmonary Disease (COPD): No - NEUROLOGICAL Hx Neurological Disorder: Yes Hx Dementia: Yes Hx Multiple Sclerosis: Yes - HEENT Hx HEENT Problems: Yes Hx Glaucoma: Yes (left eye) - RENAL Hx Chronic Kidney Disease: No - ENDOCRINE/METABOLIC Hx Endocrine Disorders: Yes Hx Diabetes Mellitus Type 2: Yes Hx Hypothyroidism: Yes - HEMATOLOGICAL/ONCOLOGICAL Hx Blood Disorders: Yes Hx Chemotherapy: Yes Hx Shingles: Yes - INTEGUMENTARY Hx Dermatological Problems: No - MUSCULOSKELETAL/RHEUMATOLOGICAL Hx Musculoskeletal Disorders: Yes Hx Arthritis: Yes Hx Falls: No Hx Rheumatoid Arthritis: No - GASTROINTESTINAL Hx Gastrointestinal Disorders: Yes Hx Gastritis: Yes - GENITOURINARY/GYNECOLOGICAL Hx Genitourinary Disorders: Yes Hx Incontinence: Yes Hx Urinary Tract Infection: Yes Other/Comment: urosepsis - PSYCHIATRIC Hx Psychophysiologic Disorder: Yes Hx Anxiety: Yes Hx Depression: Yes Hx Substance Use: No - SURGICAL HISTORY Hx Surgeries: No - ANESTHESIA Hx Anesthesia: No Meds Allergies/Adverse Reactions: Allergies Allergy/AdvReac Type Severity Reaction Status Date / Time ciprofloxacin [From Cipro] Allergy RASH Verified 10/07/15 12:02 ciprofloxacin HCl Allergy RASH Verified 10/07/15 12:02 [From Cipro] - Medications Medications: Current Medications Sodium Chloride (Sodium Chloride 0.9%) 500 mls @ 100 mls/hr IV .Q5H ADY Last Admin: 03/14/17 12:56 Dose: 100 mls/hr Physical Exam - Constitutional Appears: Well, Non-toxic, No Acute Distress - Extremities Exam Additional comments: Vasc: DP/PT 2/4 B/L. Temperature gradient WNL. CFT < 3 sec x 10. No pedal edema. Derm: Elongated mildly dystrophic toenails x 10. Skin and soft tissue intact. No open lesions, no rashes, no clinical signs of infection. Neuro: Protective sensation grossly diminished B/L Ortho: Flaccid paralysis to B/L lower extremities. Mild tenderness to palpation of toenails. - Neurological Exam Neurological exam: Alert, Oriented x3 - Psychiatric Exam Psychiatric exam: Normal Affect, Normal Mood Results - Vital Signs Recent Vital Signs: Last Vital Signs Temp 99 F 03/15/17 07:46 Pulse 43 L 03/15/17 07:46 Resp 20 03/15/17 07:46 BP 148/64 03/15/17 07:46 Pulse Ox 96 03/15/17 07:46 - Labs Result Diagrams: 03/14/17 11:48 03/15/17 05:45 Labs: Laboratory Results - last 24 hr 03/14/17 03/14/17 03/14/17 11:48 11:48 19:22 WBC 6.6 RBC 3.54 L Hgb 11.3 L Hct 34.2 MCV 96.4 MCH 31.8 H MCHC 33.0 RDW 14.0 Plt Count 170 MPV 9.4 Neut % (Auto) 63.4 Lymph % (Auto) 24.1 Sebastian % (Auto) 9.3 Eos % (Auto) 2.4 Baso % (Auto) 0.8 Neut # 4.2 Lymph # 1.6 Sebastian # 0.6 Eos # 0.2 Baso # 0.1 Sodium 137 Potassium 5.4 H Chloride 105 Carbon Dioxide 23 Anion Gap 14 BUN 20 H Creatinine 0.9 Est GFR ( Amer) > 60 Est GFR (Non-Af Amer) > 60 POC Glucose (mg/dL) 366 H Random Glucose 138 H Calcium 8.6 Total Bilirubin 0.7 AST 45 H D ALT 41 Alkaline Phosphatase 54 Total Protein 7.0 Albumin 4.0 Globulin 3.0 Albumin/Globulin Ratio 1.3 03/14/17 03/15/17 21:22 05:45 WBC RBC Hgb Hct MCV MCH MCHC RDW Plt Count MPV Neut % (Auto) Lymph % (Auto) Sebastian % (Auto) Eos % (Auto) Baso % (Auto) Neut # Lymph # Sebastian # Eos # Baso # Sodium 139 Potassium 4.7 Chloride 104 Carbon Dioxide 24 Anion Gap 15 BUN 21 H Creatinine 1.0 Est GFR ( Amer) > 60 Est GFR (Non-Af Amer) 53 POC Glucose (mg/dL) 414 H* Random Glucose 246 H Calcium 8.6 Total Bilirubin AST ALT Alkaline Phosphatase Total Protein Albumin Globulin Albumin/Globulin Ratio Assessment & Plan - Assessment and Plan (Free Text) Assessment: 81 y/o female with PMHx of DM, hypothyroidism, Devic's disease, HTN, heart disease, HLD, multiple sclerosis, chronic paraplegia, gastritis, depression, glaucoma, UTI and shingles is seen by podiatry for painful dystrophic elongated toenails. Plan: Pt seen and evaluated at bedside Discussed plan with attending Dr. Jo Chart, labs and vitals reviewed Aseptic debridement of elongated toenails using sterile nippers Pt tolerated procedure well without incident Stable per podiatry Thank you for the consult, please re-consult as needed Podiatry to sign off at this time
[2017-03-15] MEDS ORDERED: Morphine 15 mg Immediate Release Tab PO PRN (09:00)
[2017-03-15] MEDS ORDERED: Magnesium Hydroxide Susp 30 ml UD PO PRN (09:00)
[2017-03-15] MEDS ORDERED: Pantoprazole 20 mg EC Tab PO SCH (09:00)
[2017-03-15] MEDS ORDERED: Enoxaparin 40 mg Syringe SC SCH (09:15)
[2017-03-15 13:08] VITALS: BP 124/67; PULSE 60; TEMP 98.9; O2SAT 98
--- NOTE | 2017-03-15 17:58 | CP.PCM.PN ---
Subjective - Date & Time of Evaluation Date of Evaluation: 03/15/17 Time of Evaluation: 11:30 - Subjective Subjective: F/U Devic's Disease. Pt awake, feels well, no A/D, no c/o. Objective - Vital Signs/Intake and Output Vital Signs (last 24 hours): Temp Pulse Resp BP Pulse Ox 98.9 F 60 20 124/67 98 03/15/17 13:07 03/15/17 13:07 03/15/17 13:07 03/15/17 13:07 03/15/17 13:07 - Labs Labs: 03/14/17 11:48 03/15/17 05:45 - Constitutional Appears: No Acute Distress, Chronically Ill - Head Exam Head Exam: NORMAL INSPECTION - Eye Exam Eye Exam: PERRL - ENT Exam ENT Exam: Normal Oropharynx - Neck Exam Neck Exam: Normal Inspection - Respiratory Exam Respiratory Exam: NORMAL BREATHING PATTERN - Cardiovascular Exam Cardiovascular Exam: REGULAR RHYTHM - GI/Abdominal Exam GI & Abdominal Exam: Soft, Normal Bowel Sounds - Extremities Exam Additional comments: paralysis L/E, R-L foot droop - Back Exam Additional comments: Sacral ulcer healed - Neurological Exam Neurological Exam: Awake Additional comments: Oriented at times, forgetful, focal weakness, sensory deficit L/E - Psychiatric Exam Psychiatric exam: Depressed - Skin Skin Exam: Warm Assessment and Plan (1) Chronic paraplegia Status: Chronic (2) DM II (diabetes mellitus, type II), controlled Status: Chronic (3) Devic's disease Status: Chronic (4) Dyslipidemia Status: Chronic (5) Gastritis Status: Chronic (6) Hypothyroid Status: Chronic - Assessment and Plan (Free Text) Plan: Pt improved and stable to be discharged to [place], I will follow Pt in that facility.
[2017-03-15] MEDS ORDERED: Latanoprost 0.005% Opht SOUTION OU SCH (22:00)
--- NOTE | 2017-04-02 16:10 | CP.PCM.DIS ---
Provider - Provider Date of Admission: 03/14/17 11:03 Attending physician: Jameson Chiu MD Primary care physician: Jameson Chiu MD Consults: Hematology and Podiatry. Time Spent in preparation of Discharge (in minutes): 25 Diagnosis - Discharge Diagnosis (1) Chronic paraplegia Status: Chronic Priority: High (2) DM II (diabetes mellitus, type II), controlled Status: Chronic Priority: Medium (3) Devic's disease Status: Chronic Priority: High (4) Dyslipidemia Status: Chronic Priority: Low (5) Gastritis Status: Chronic Priority: Medium (6) Hypothyroid Status: Chronic Priority: Medium Hospital Course - Lab Results Lab Results: Most Recent Lab Values WBC 6.6 K/uL (4.8-10.8) 03/14/17 11:48 RBC 3.54 Mil/uL (3.80-5.20) L 03/14/17 11:48 Hgb 11.3 g/dL (12.0-16.0) L 03/14/17 11:48 Hct 34.2 % (34.0-47.0) 03/14/17 11:48 MCV 96.4 fl (81.0-99.0) 03/14/17 11:48 MCH 31.8 pg (27.0-31.0) H 03/14/17 11:48 MCHC 33.0 g/dL (33.0-37.0) 03/14/17 11:48 RDW 14.0 % (11.5-14.5) 03/14/17 11:48 Plt Count 170 K/uL (130-400) 03/14/17 11:48 MPV 9.4 fl (7.2-11.7) 03/14/17 11:48 Neut % (Auto) 63.4 % (50.0-75.0) 03/14/17 11:48 Lymph % (Auto) 24.1 % (20.0-40.0) 03/14/17 11:48 Meriwether % (Auto) 9.3 % (0.0-10.0) 03/14/17 11:48 Eos % (Auto) 2.4 % (0.0-4.0) 03/14/17 11:48 Baso % (Auto) 0.8 % (0.0-2.0) 03/14/17 11:48 Neut # 4.2 K/uL (1.8-7.0) 03/14/17 11:48 Lymph # 1.6 K/uL (1.0-4.3) 03/14/17 11:48 Meriwether # 0.6 K/uL (0.0-0.8) 03/14/17 11:48 Eos # 0.2 K/uL (0.0-0.7) 03/14/17 11:48 Baso # 0.1 K/uL (0.0-0.2) 03/14/17 11:48 Sodium 139 mmol/l (132-148) 03/15/17 05:45 Potassium 4.7 MMOL/L (3.6-5.0) 03/15/17 05:45 Chloride 104 mmol/L (98-107) 03/15/17 05:45 Carbon Dioxide 24 mmol/L (22-30) 03/15/17 05:45 Anion Gap 15 (10-20) 03/15/17 05:45 BUN 21 mg/dl (7-17) H 03/15/17 05:45 Creatinine 1.0 mg/dL (0.7-1.2) 03/15/17 05:45 Est GFR ( Amer) > 60 03/15/17 05:45 Est GFR (Non-Af Amer) 53 03/15/17 05:45 POC Glucose (mg/dL) 414 mg/dL (65-110) H* 03/14/17 21:22 Random Glucose 246 mg/dL (65-105) H 03/15/17 05:45 Calcium 8.6 mg/dL (8.4-10.2) 03/15/17 05:45 Total Bilirubin 0.7 mg/dl (0.2-1.3) 03/14/17 11:48 AST 45 U/L (14-36) H D 03/14/17 11:48 ALT 41 U/L (9-52) 03/14/17 11:48 Alkaline Phosphatase 54 U/L (38-126) 03/14/17 11:48 Total Protein 7.0 G/DL (6.3-8.2) 03/14/17 11:48 Albumin 4.0 g/dL (3.5-5.0) 03/14/17 11:48 Globulin 3.0 gm/dL (2.2-3.9) 03/14/17 11:48 Albumin/Globulin Ratio 1.3 (1.0-2.1) 03/14/17 11:48 - Hospital Course Hospital Course: Patient had Rituximab infusion without adverse side effects and was discharged in improved and stable condition. - Date & Time of H&P Date of H&P: 03/14/17 Time of H&P: 12:50 Discharge Exam - Head Exam Head Exam: NORMAL INSPECTION Discharge Plan - Follow Up Plan Condition: GOOD Disposition: TRANSF TO SNF Instructions: Rituximab (By injection), Preventing Infections (GEN) Referrals: Jameson Chiu MD [Primary Care Provider] -
== END 2017-03-15 14:39 ==
LOC: H.MEDSURG1 03-14 11:03
PROVIDERS: ADMIT Internal Medicine Pulmonary Disease; ATTEND Internal Medicine Pulmonary Disease
DX: G36.0 Neuromyelitis optica [Devic] (principal); E03.9 Hypothyroidism, unspecified; E11.9 Type 2 diabetes mellitus without complications; E78.00 Pure hypercholesterolemia, unspecified; E78.5 Hyperlipidemia, unspecified; G82.20 Paraplegia, unspecified; F03.90 Unspecified dementia, unspecified severity, without behavioral disturbance, psychotic disturbance, mood disturbance, and anxiety; G35 Multiple sclerosis; H40.9 Unspecified glaucoma; I10 Essential (primary) hypertension; Z83.3 Family history of diabetes mellitus; Z87.440 Personal history of urinary (tract) infections; Z88.1 Allergy status to other antibiotic agents; F32.9 Major depressive disorder, single episode, unspecified; F41.9 Anxiety disorder, unspecified; F45.9 Somatoform disorder, unspecified; K29.70 Gastritis, unspecified, without bleeding; M19.90 Unspecified osteoarthritis, unspecified site; R32 Unspecified urinary incontinence; R20.0 Anesthesia of skin; L60.8 Other nail disorders
CPT/HCPCS: 11721; 36415; 80048; 80053; 82948; 85025; 96365; 96367; 96372; 96416; G0378; J1100; J1200; J1650; J2405; J7040; J9310

== ENCOUNTER 2017-05-07 10:02 | Observation (INO) | payer MEDICARE, MEDICAID ==
[2017-05-07 11:58] VITALS: BMI 23.0
[2017-05-07] MEDS ORDERED: Acetaminophen 650mg/20.3ml solution UD PO SCH (12:15)
[2017-05-07] MEDS ORDERED: Sodium Chloride 0.9% 500 ML IV SCH (12:15)
[2017-05-07] MEDS ORDERED: Dexamethasone 10 MG in Sodium Chloride 0.9% 50 ML IVPB SCH (12:15)
[2017-05-07] MEDS ORDERED: SODIUM CHLORIDE 0.9% IV SCH (12:30)
[2017-05-07] MEDS ORDERED: RITUXIMAB IV SCH (12:30)
[2017-05-07 13:16] LABS: BASO # 0.1 K/uL (0.0-0.2); EOS # 0.1 K/uL (0.0-0.7); EOS % 2.4 % (0.0-4.0); HEMATOCRIT 36.6 % (34.0-47.0); LYMPH # 1.2 K/uL (1.0-4.3); LYMPH % 19.1 % (20.0-40.0); MEAN CELL VOLUME 97.3 fl (81.0-99.0); MEAN CORPUSCULAR HEMOGLOBIN 32.2 pg (27.0-31.0); MEAN CORPUSCULAR HGB CONC 33.1 g/dL (33.0-37.0); MEAN PLATELET VOLUME 9.9 fl (7.2-11.7); MONO # 0.5 K/uL (0.0-0.8); MONO % 8.5 % (0.0-10.0); NEUT # 4.3 K/uL (1.8-7.0); RED CELL DISTRIBUTION WIDTH 13.6 % (11.5-14.5); WHITE BLOOD COUNT 6.1 K/uL (4.8-10.8)
[2017-05-07 13:28] LABS: ALB/GLOB RATIO 1.3 (1.0-2.1); ALKALINE PHOSPHATASE 69 U/L (38-126); ALT/SGPT 49 U/L (9-52); AST/SGOT 33 U/L (14-36); BILIRUBIN,TOTAL 0.6 mg/dl (0.2-1.3); BLOOD UREA NITROGEN 19 mg/dl (7-17); CALCIUM 9.2 mg/dL (8.4-10.2); CARBON DIOXIDE 26 mmol/L (22-30); CHLORIDE 104 mmol/L (98-107); GFR AFRICAN-AMERICAN > 60; GLUCOSE,RANDOM 152 mg/dL (65-105); POTASSIUM 4.5 MMOL/L (3.6-5.0); SODIUM 138 mmol/l (132-148); TOTAL PROTEIN 6.9 G/DL (6.3-8.2)
[2017-05-07] MEDS ORDERED: Morphine 15 mg Immediate Release Tab PO PRN (13:52)
[2017-05-07] MEDS ORDERED: Magnesium Hydroxide Susp 30 ml UD PO PRN (13:52)
[2017-05-07] MEDS: Insulin Lispro (humaLOG) 100 Units/ml Inj SC SCH ×2 (16:53→21:50)
[2017-05-07] MEDS: Omega-3-Acid Ethyl Esters 1 GM Cap PO SCH (16:55)
[2017-05-07] MEDS: Dorzolamide 2% Ophth Soln OU SCH (16:56)
[2017-05-07] MEDS ORDERED: OMEGA 3 ACID ETHYL ESTERS PO SCH (17:00)
[2017-05-07] MEDS ORDERED: Patient's Own Med (Dorzolamide 2%/Timolol 0.5% [Cosopt 2%-0.5% Opht] 1 DROP) OU SCH (17:00)
[2017-05-07] MEDS ORDERED: Latanoprost 0.005% Opht SOUTION OU SCH (22:00)
[2017-05-07] MEDS ORDERED: Sodium Chloride 0.9% 1,000 ML IV SCH (23:00)
[2017-05-08 07:54] VITALS: RESP 20
[2017-05-08] MEDS: Insulin Lispro (humaLOG) 100 Units/ml Inj SC SCH ×3 (08:39→16:30)
[2017-05-08] MEDS: Omega-3-Acid Ethyl Esters 1 GM Cap PO SCH ×2 (08:42→16:23)
[2017-05-08] MEDS: Dorzolamide 2% Ophth Soln OU SCH ×2 (08:43→16:23)
[2017-05-08] MEDS ORDERED: Multivitamin With Minerals Tab PO SCH (09:00)
[2017-05-08] MEDS ORDERED: Pantoprazole 20 mg EC Tab PO SCH (09:00)
[2017-05-08] MEDS ORDERED: Calcium-Vit D 500 mg-200 Units Tab UD PO SCH (09:00)
[2017-05-08] MEDS ORDERED: POLYETHYLENE GLYCOL 3350 17 GM/Dose PACKET PO SCH (09:00)
[2017-05-08] MEDS ORDERED: Levothyroxine 75 MCG TAB PO SCH (09:00)
[2017-05-08] MEDS ORDERED: Enoxaparin 40 mg Syringe SC SCH (09:00)
--- NOTE | 2017-05-08 14:04 | CP.PCM.PCO ---
Assessment/Plan - Assessment/Plan Assessment (Free Text): Pt stable, tolerated chemo infusion. Cleared by Dr. Fitzgerald for d/c. Pt seen and cleard for d/c back to [facility] by Dr. Chiu. He will follow patient there.
--- NOTE | 2017-05-08 14:08 | CP.PCM.HP ---
History of Present Illness - History of Present Illness History of Present Illness: CC: Devic's Disease. 81 y/o F resident at [facility], was brought to [facility] to be admitted on 05/07/17 to receive Rituximab infusion associated to her multiple sclerosis pain. Worsening symptoms: Hx of Generalized pain alleviated with Chemo. Chronic Paraplegia. Pt denied: Pain after infusion, fever, chills, n/v/d, abdominal pain, CP, Palpitations, SOB, sick contact. PMHx: Devic's Disease, Chronic Paraplegia, DMII, Dyslipidemia, Hypothyroidism, Chronic Depression, Constipation, Urinary incontinence, mild Dementia, Hx of shingles, Hx Glaucoma L eye, Hx of UTI. Pt had infusion with no side effect, no c/o, no A/D, tolerated breakfast well. Present on Admission - Present on Admission Any Indicators Present on Admission: No Review of Systems - Constitutional Constitutional: Weakness - EENT Eyes: Requires Corrective Lenses, Other (Glaucoma L eye) Ears: Other (negative) Nose/Mouth/Throat: Other (negative) - Cardiovascular Cardiovascular: Other (negative) - Respiratory Respiratory: Other (negative) - Gastrointestinal Gastrointestinal: Constipation - Genitourinary Genitourinary: Urinary Incontinence - Musculoskeletal Musculoskeletal: Arthralgias, Back Pain - Integumentary Integumentary: Other (negative) - Neurological Neurological: Weakness - Psychiatric Psychiatric: Depression - Endocrine Endocrine: Other (negative) - Hematologic/Lymphatic Hematologic: Other (negative) Past Patient History - Tetanus Immunizations Tetanus Immunization: Unknown - Past Medical History & Family History Past Medical History?: Yes Pertinent Family History: Unknown - Past Social History Smoking Status: Never Smoked Alcohol: None Drugs: Denies Home Situation {Lives}: [facility] - CARDIAC Hx Cardiac Disorders: Yes Hx Congestive Heart Failure: No Hx Hypercholesterolemia: Yes Hx Hypertension: Yes - PULMONARY Hx Respiratory Disorders: No Hx Chronic Obstructive Pulmonary Disease (COPD): No - NEUROLOGICAL Hx Neurological Disorder: Yes Hx Dementia: Yes Hx Multiple Sclerosis: Yes - HEENT Hx HEENT Problems: Yes Hx Glaucoma: Yes (left eye) - RENAL Hx Chronic Kidney Disease: No - ENDOCRINE/METABOLIC Hx Endocrine Disorders: Yes Hx Diabetes Mellitus Type 2: Yes Hx Hypothyroidism: Yes - HEMATOLOGICAL/ONCOLOGICAL Hx Blood Disorders: Yes Hx Chemotherapy: Yes Hx Shingles: Yes - INTEGUMENTARY Hx Dermatological Problems: No - MUSCULOSKELETAL/RHEUMATOLOGICAL Hx Musculoskeletal Disorders: Yes Hx Arthritis: Yes Hx Falls: No Hx Rheumatoid Arthritis: No - GASTROINTESTINAL Hx Gastrointestinal Disorders: Yes Hx Gastritis: Yes - GENITOURINARY/GYNECOLOGICAL Hx Genitourinary Disorders: Yes Hx Incontinence: Yes Hx Urinary Tract Infection: Yes Other/Comment: urosepsis - PSYCHIATRIC Hx Psychophysiologic Disorder: Yes Hx Anxiety: Yes Hx Depression: Yes Hx Substance Use: No - SURGICAL HISTORY Hx Surgeries: No - ANESTHESIA Hx Anesthesia: No Meds Allergies/Adverse Reactions: Allergies Allergy/AdvReac Type Severity Reaction Status Date / Time ciprofloxacin [From Cipro] Allergy RASH Verified 05/07/17 11:58 ciprofloxacin HCl Allergy RASH Verified 05/07/17 11:58 [From Cipro] Physical Exam - Constitutional Appears: No Acute Distress, Chronically Ill - Head Exam Head Exam: NORMAL INSPECTION - Eye Exam Eye Exam: PERRL - ENT Exam ENT Exam: Normal Oropharynx - Neck Exam Neck exam: Positive for: Normal Inspection - Respiratory Exam Respiratory Exam: NORMAL BREATHING PATTERN - Cardiovascular Exam Cardiovascular Exam: REGULAR RHYTHM - GI/Abdominal Exam GI & Abdominal Exam: Normal Bowel Sounds, Soft - Extremities Exam Additional comments: Paralysis lower extremities, R-L foot droop. - Back Exam Back exam: NORMAL INSPECTION - Neurological Exam Neurological exam: Alert, Oriented x3 Additional comments: Focal weakness, sensory deficit lower extremities. - Psychiatric Exam Psychiatric exam: Depressed - Skin Skin Exam: Warm Results - Vital Signs Recent Vital Signs: Last Vital Signs Temp 98.3 F 05/08/17 09:00 Pulse 48 L 05/08/17 09:00 Resp 20 05/08/17 09:00 BP 152/59 H 05/08/17 09:00 Pulse Ox 94 L 05/08/17 09:00 reviewed J.P. - Labs Result Diagrams: 05/07/17 13:00 05/07/17 13:00 Labs: Laboratory Results - last 24 hr 05/07/17 05/07/17 05/08/17 16:31 21:43 05:43 POC Glucose (mg/dL) 247 H 262 H 167 H 05/08/17 11:02 POC Glucose (mg/dL) 226 H reviewed j.P. 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 Hematology consult appreciated. - Date & Time Date: 05/08/17 Time: 10:20
[2017-05-08 16:11] VITALS: BP 126/50; PULSE 54; TEMP 98.5; O2SAT 96
== END 2017-05-08 18:15 ==
LOC: UNDOADMOB 11:54 → H.MEDSURG1 11:54 → INTOOBSV 11:54 → H.MEDSURG1 12:11
PROVIDERS: ADMIT Internal Medicine Pulmonary Disease; ATTEND Internal Medicine Pulmonary Disease
DX: G36.0 Neuromyelitis optica [Devic] (principal); E03.9 Hypothyroidism, unspecified; E11.9 Type 2 diabetes mellitus without complications; E78.5 Hyperlipidemia, unspecified; F03.90 Unspecified dementia, unspecified severity, without behavioral disturbance, psychotic disturbance, mood disturbance, and anxiety; G82.20 Paraplegia, unspecified; G89.29 Other chronic pain; Z88.3 Allergy status to other anti-infective agents; R32 Unspecified urinary incontinence
CPT/HCPCS: 36415; 80053; 82948; 85025; 96365; 96367; 96416; G0378; J1100; J1200; J1650; J2405; J7040; J9310

== ENCOUNTER 2017-07-02 09:29 | Observation (INO) | payer MEDICARE, MEDICAID ==
[2017-07-02 08:57] VITALS: BMI 22.1
[2017-07-02] MEDS: Sodium Chloride 0.9% 500 ML IV SCH (09:45)
[2017-07-02] MEDS ORDERED: SODIUM CHLORIDE 0.9% IV SCH (11:15)
[2017-07-02] MEDS ORDERED: RITUXIMAB IV SCH (11:15)
[2017-07-02] MEDS: Insulin Regular 100 units/ml SC SCH ×3 (12:54→22:29)
--- NOTE | 2017-07-02 14:07 | CP.PCM.CON ---
History of Present Illness - History of Present Illness History of Present Illness: This is a 81 yrs old fmale who was diagnosed to have devic's diseaseabout 5 yrs ago,. After several other medicines she was aciaa5ka on rituxan with a marked improvement in her symptoms. She has been getting the rituxan every 2 months. She has no complaints at nthis time. Past h/o HTN, hyperlipidemia and DM type 2. ever smoked or abused alcohol. Review of Systems - Hematologic/Lymphatic Additional comments: Physical exam; Pt is alert, well oriented in no acute distress neck; supple, no adenopathy Chest; Occ rales in the bases. Heart; RSR, no murmur Abd; soft, no mass, no h/s megaly Past Patient History - Tetanus Immunizations Tetanus Immunization: Unknown - Past Medical History & Family History Past Medical History?: Yes - Past Social History Smoking Status: Never Smoked - CARDIAC Hx Cardiac Disorders: Yes Hx Hypercholesterolemia: Yes Hx Hypertension: Yes - PULMONARY Hx Respiratory Disorders: No - NEUROLOGICAL Hx Neurological Disorder: Yes Hx Dementia: Yes Hx Multiple Sclerosis: Yes Other/Comment: Devic's Disease - HEENT Hx HEENT Problems: Yes Hx Glaucoma: Yes (left eye) - RENAL Hx Chronic Kidney Disease: No - ENDOCRINE/METABOLIC Hx Endocrine Disorders: Yes Hx Diabetes Mellitus Type 1: Yes Hx Hypothyroidism: Yes - HEMATOLOGICAL/ONCOLOGICAL Hx Blood Disorders: Yes Hx Chemotherapy: Yes (for multiple sclerosis) Hx Shingles: Yes - INTEGUMENTARY Hx Dermatological Problems: No - MUSCULOSKELETAL/RHEUMATOLOGICAL Hx Musculoskeletal Disorders: Yes Hx Arthritis: Yes Hx Falls: No - GASTROINTESTINAL Hx Gastrointestinal Disorders: Yes Hx Gastritis: Yes - GENITOURINARY/GYNECOLOGICAL Hx Genitourinary Disorders: Yes Hx Incontinence: Yes Hx Urinary Tract Infection: Yes Other/Comment: urosepsis - PSYCHIATRIC Hx Psychophysiologic Disorder: Yes Hx Anxiety: Yes Hx Depression: Yes Hx Substance Use: No - SURGICAL HISTORY Hx Surgeries: No - ANESTHESIA Hx Anesthesia: No Meds Allergies/Adverse Reactions: Allergies Allergy/AdvReac Type Severity Reaction Status Date / Time ciprofloxacin [From Cipro] Allergy RASH Verified 05/07/17 11:58 ciprofloxacin HCl Allergy RASH Verified 05/07/17 11:58 [From Cipro] - Medications Medications: Current Medications Acetaminophen (Tylenol 325mg Tab) 650 mg PO ONCE ADY Stop: 07/02/17 17:00 Last Admin: 07/02/17 11:22 Dose: 650 mg Dexamethasone (Decadron) 4 mg PO ONCE ADY Stop: 07/02/17 17:00 Last Admin: 07/02/17 11:22 Dose: 4 mg Diphenhydramine HCl (Benadryl) 25 mg PO ONCE ADY Stop: 07/02/17 17:00 Last Admin: 07/02/17 11:22 Dose: 25 mg Famotidine (Pepcid) 20 mg PO ONCE ADY Stop: 07/02/17 17:00 Last Admin: 07/02/17 11:22 Dose: 20 mg Sodium Chloride (Sodium Chloride 0.9%) 500 mls @ 70 mls/hr IV .Q7H9M ADY Last Admin: 07/02/17 09:45 Dose: 70 mls/hr Rituximab 585 mg/ Sodium (Chloride) 308.5 mls @ 25.708 mls/hr IV ONCE ADY PRN Reason: As Directed Stop: 07/02/17 23:15 Last Admin: 07/02/17 11:48 Dose: 25.708 mls/hr Insulin Human Regular (Humulin R) 0 units SC ACHS ADY PRN Reason: Protocol Last Admin: 07/02/17 12:54 Dose: 1 unit Ondansetron HCl (Zofran Tab) 8 mg PO ONCE ADY Stop: 07/02/17 17:01 Last Admin: 07/02/17 11:22 Dose: 8 mg Results - Vital Signs Recent Vital Signs: Last Vital Signs Temp 98.3 F 07/02/17 09:05 Pulse 55 L 07/02/17 09:05 Resp 18 07/02/17 09:05 BP 95/53 L 07/02/17 09:05 Pulse Ox 97 07/02/17 09:05 Assessment & Plan - Assessment and Plan (Free Text) Assessment: Impression; Devic's disease Plan: Plan; will give rituxan over 12 hrs because with the usual protocol pt grts reactions. - Date & Time Date: 07/02/17 Time: 14:11
--- NOTE | 2017-07-02 14:26 | CP.PCM.HP ---
History of Present Illness - History of Present Illness History of Present Illness: CC: Devic's Disease. This is a 81 y/o F, resident at [facility] q 2 months 2nd to Devic's Disease, Pt doing well with Tx, no other c/o. Worsening symptoms: Multiple chronic medical conditions including Paraplegia.. Pt denied: Fever, chills, n/v/d, abdominal pain, CP, SOB, sick contact. PMHx: Multiple Sclerosis, O/A, DMII, High Cholesterol, Hypothyroidism, mild Dementia, Gastritis, Constipation, Incontinence, Depression. Present on Admission - Present on Admission Any Indicators Present on Admission: No Review of Systems - Constitutional Constitutional: Weakness - EENT Eyes: Requires Corrective Lenses Ears: Other (negative) Nose/Mouth/Throat: Other (negative) - Cardiovascular Cardiovascular: Other (negative) - Respiratory Respiratory: Other (negative) - Gastrointestinal Gastrointestinal: Other (negative) - Genitourinary Genitourinary: Urinary Incontinence - Musculoskeletal Musculoskeletal: Arthralgias - Integumentary Integumentary: Wounds (L sacral) - Neurological Neurological: Other (paralysis BLE) - Psychiatric Psychiatric: Depression - Endocrine Endocrine: Other (negative) - Hematologic/Lymphatic Hematologic: Other (negative) Past Patient History - Tetanus Immunizations Tetanus Immunization: Unknown - Past Medical History & Family History Past Medical History?: Yes Pertinent Family History: Unknown - Past Social History Smoking Status: Never Smoked Drugs: Denies, Inhalants Home Situation {Lives}: Retirement - CARDIAC Hx Cardiac Disorders: Yes Hx Hypercholesterolemia: Yes Hx Hypertension: Yes - PULMONARY Hx Respiratory Disorders: No - NEUROLOGICAL Hx Neurological Disorder: Yes Hx Dementia: Yes Hx Multiple Sclerosis: Yes Other/Comment: Devic's Disease - HEENT Hx HEENT Problems: Yes Hx Glaucoma: Yes (left eye) - RENAL Hx Chronic Kidney Disease: No - ENDOCRINE/METABOLIC Hx Endocrine Disorders: Yes Hx Diabetes Mellitus Type 1: Yes Hx Hypothyroidism: Yes - HEMATOLOGICAL/ONCOLOGICAL Hx Blood Disorders: Yes Hx Chemotherapy: Yes (for multiple sclerosis) Hx Shingles: Yes - INTEGUMENTARY Hx Dermatological Problems: No - MUSCULOSKELETAL/RHEUMATOLOGICAL Hx Musculoskeletal Disorders: Yes Hx Arthritis: Yes Hx Falls: No - GASTROINTESTINAL Hx Gastrointestinal Disorders: Yes Hx Gastritis: Yes - GENITOURINARY/GYNECOLOGICAL Hx Genitourinary Disorders: Yes Hx Incontinence: Yes Hx Urinary Tract Infection: Yes Other/Comment: urosepsis - PSYCHIATRIC Hx Psychophysiologic Disorder: Yes Hx Anxiety: Yes Hx Depression: Yes Hx Substance Use: No - SURGICAL HISTORY Hx Surgeries: No - ANESTHESIA Hx Anesthesia: No Meds Allergies/Adverse Reactions: Allergies Allergy/AdvReac Type Severity Reaction Status Date / Time ciprofloxacin [From Cipro] Allergy RASH Verified 05/07/17 11:58 ciprofloxacin HCl Allergy RASH Verified 05/07/17 11:58 [From Cipro] Physical Exam - Constitutional Appears: No Acute Distress, Chronically Ill - Head Exam Head Exam: NORMAL INSPECTION - Eye Exam Eye Exam: PERRL - ENT Exam ENT Exam: Normal Oropharynx - Neck Exam Neck exam: Positive for: Normal Inspection - Respiratory Exam Respiratory Exam: NORMAL BREATHING PATTERN - Cardiovascular Exam Cardiovascular Exam: REGULAR RHYTHM - GI/Abdominal Exam GI & Abdominal Exam: Normal Bowel Sounds, Soft - Extremities Exam Additional comments: Paralysis BLE, R-L foot droop. L hand contracted. - Back Exam Additional comments: Left Sacral with pressure ulcer stage I. POA - Neurological Exam Neurological exam: Alert, Oriented x3 Additional comments: Paraplegia, no movements or sensation in lower extremities, R-L foot droop. - Psychiatric Exam Psychiatric exam: Depressed - Skin Skin Exam: Warm Results - Vital Signs Recent Vital Signs: Last Vital Signs Temp 98.3 F 07/02/17 09:05 Pulse 55 L 07/02/17 09:05 Resp 18 07/02/17 09:05 BP 95/53 L 07/02/17 09:05 Pulse Ox 97 07/02/17 09:05 reviewed J.P. - Labs Result Diagrams: 07/02/17 16:44 07/03/17 05:20 Labs: reviewed J.P. Assessment & Plan (1) Devic's disease Status: Chronic Priority: High (2) Uncontrolled type 2 diabetes mellitus Status: Acute Priority: High (3) Dyslipidemia Status: Chronic Priority: Medium (4) Hypothyroidism Status: Chronic Priority: Medium (5) Constipation Status: Chronic Priority: Medium (6) Depression Status: Chronic Priority: Medium - Assessment and Plan (Free Text) Plan: For Rituximab infusion, continue Humalin, Lipitor, Lovaza, Prozac and rest of Tx. - Date & Time Date: 07/02/17 Time: 10:30
[2017-07-02 16:51] LABS: BASO % 0.6 % (0.0-2.0); EOS % 0.2 % (0.0-4.0); HEMATOCRIT 37.6 % (34.0-47.0); LYMPH # 0.4 K/uL (1.0-4.3); LYMPH % 8.2 % (20.0-40.0); MEAN CELL VOLUME 99.2 fl (81.0-99.0); MEAN CORPUSCULAR HEMOGLOBIN 32.4 pg (27.0-31.0); MEAN CORPUSCULAR HGB CONC 32.6 g/dL (33.0-37.0); MEAN PLATELET VOLUME 9.3 fl (7.2-11.7); MONO # 0.1 K/uL (0.0-0.8); MONO % 1.1 % (0.0-10.0); NEUT # 4.7 K/uL (1.8-7.0); NEUT % 89.9 % (50.0-75.0); PLATELET COUNT 160 K/uL (130-400); RED CELL DISTRIBUTION WIDTH 13.1 % (11.5-14.5); WHITE BLOOD COUNT 5.3 K/uL (4.8-10.8)
[2017-07-02 17:10] LABS: ALB/GLOB RATIO 1.3 (1.0-2.1); BILIRUBIN,TOTAL 0.5 mg/dl (0.2-1.3); CALCIUM 9.1 mg/dL (8.4-10.2); TOTAL PROTEIN 6.9 G/DL (6.3-8.2)
[2017-07-02] MEDS: Artificial Tears Opht Soln OU SCH (17:25)
[2017-07-02] MEDS: Omega-3-Acid Ethyl Esters 1 GM Cap PO SCH (17:27)
[2017-07-02 17:33] LABS: NEUTROPHIL 89 % (42-75); TOTAL CELLS COUNTED 100
[2017-07-02] MEDS ORDERED: Sod Polystyrene Sulf 15 gm/60 ml Susp PO ONE (19:35)
[2017-07-02] MEDS ORDERED: DOCUSATE SODIUM 200 MG PO SCH (22:00)
[2017-07-03] MEDS: Sodium Chloride 0.9% 500 ML IV SCH (01:20)
[2017-07-03] MEDS: Insulin Regular 100 units/ml SC SCH ×2 (06:53→11:56)
[2017-07-03 06:56] LABS: CALCIUM 8.9 mg/dL (8.4-10.2); POTASSIUM 4.6 MMOL/L (3.6-5.0)
[2017-07-03 07:57] VITALS: PULSE 65; RESP 20; TEMP 98; O2SAT 96
[2017-07-03] MEDS: Artificial Tears Opht Soln OU SCH ×2 (08:34→11:59)
[2017-07-03] MEDS: Omega-3-Acid Ethyl Esters 1 GM Cap PO SCH (08:34)
[2017-07-03] MEDS ORDERED: Pantoprazole 20 mg EC Tab PO SCH (09:00)
[2017-07-03] MEDS ORDERED: MULTIVITAMIN PO SCH (09:00)
[2017-07-03] MEDS ORDERED: Multivitamin With Minerals Tab PO SCH (09:00)
[2017-07-03] MEDS ORDERED: Levothyroxine 75 MCG TAB PO SCH (09:00)
[2017-07-03] MEDS ORDERED: Influenza Vaccine 18yr & older 0.5 ML/45 MCG SYR IM ONE (09:00)
[2017-07-03] MEDS ORDERED: POLYETHYLENE GLYCOL 3350 17 GM/Dose PACKET PO SCH (09:00)
[2017-07-03] MEDS ORDERED: Pneumococcal 23-Valent Vaccine IM ONE (09:00)
--- NOTE | 2017-07-03 12:39 | CP.PCM.PN ---
Subjective - Date & Time of Evaluation Date of Evaluation: 07/03/17 Time of Evaluation: 12:34 - Subjective Subjective: Pt finished her rituxan infusion , She tolerated it well with no adverse reactions. She will be discharged to return in 2 months in 2 months. Objective - Vital Signs/Intake and Output Vital Signs (last 24 hours): Temp Pulse Resp BP Pulse Ox 98.0 F 65 20 172/61 H 96 07/03/17 07:55 07/03/17 07:55 07/03/17 07:55 07/03/17 07:55 07/03/17 07:55 - Medications Medications: Current Medications Artificial Tears (Artificial Tears) 1 drop OU TID [facility] Last Admin: 07/03/17 11:59 Dose: 1 drop Ascorbic Acid (Vitamin C 500 Mg Tab) 500 mg PO DAILY [facility] Last Admin: 07/03/17 08:36 Dose: 500 mg Atorvastatin Calcium (Lipitor) 10 mg PO HS [facility] Last Admin: 07/02/17 22:47 Dose: 10 mg Docusate Sodium (Colace) 200 mg PO DAILY [facility] Last Admin: 07/03/17 08:35 Dose: 200 mg Ezetimibe (Zetia) 10 mg PO HS [facility] Last Admin: 07/02/17 22:42 Dose: 10 mg Fentanyl (Duragesic) 1 patch TD Q3D [facility] PRN Reason: Protocol Last Admin: 07/02/17 15:16 Dose: Not Given Fluoxetine HCl (Prozac) 10 mg PO HS [facility] Last Admin: 07/02/17 22:42 Dose: 10 mg Gabapentin (Neurontin) 300 mg PO TID [facility] Last Admin: 07/03/17 11:59 Dose: 300 mg Sodium Chloride (Sodium Chloride 0.9%) 500 mls @ 70 mls/hr IV .Q7H9M [facility] Last Admin: 07/03/17 01:20 Dose: Not Given Insulin Human Regular (Humulin R) 0 units SC ACHS [facility] PRN Reason: Protocol Last Admin: 07/03/17 11:56 Dose: Not Given Levothyroxine Sodium (Synthroid) 75 mcg PO DAILY [facility] Last Admin: 07/03/17 08:35 Dose: 75 mcg Multivitamins/Minerals (Therapeutic-M Tab) 1 tab PO DAILY [facility] Last Admin: 07/03/17 08:35 Dose: 1 tab Iryyd-6-Cmbq Ethyl Esters (Lovaza) 2 gm PO BID [facility] Last Admin: 07/03/17 08:34 Dose: 2 gm Pantoprazole Sodium (Protonix Ec Tab) 20 mg PO DAILY [facility] Last Admin: 07/03/17 08:35 Dose: 20 mg Polyethylene Glycol (Miralax) 17 gm PO DAILY [facility] Last Admin: 07/03/17 08:36 Dose: 17 gm - Labs Labs: 07/02/17 16:44 07/03/17 05:20
[2017-07-03 12:40] VITALS: BP 121/55
--- NOTE | 2017-07-03 12:53 | CP.PCM.PN ---
Subjective - Date & Time of Evaluation Date of Evaluation: 07/03/17 Time of Evaluation: 12:00 - Subjective Subjective: F/U Devic's Disease. Pt with no A/D, no c/o, tolerated well Rituximab with no side effect. Objective - Vital Signs/Intake and Output Vital Signs (last 24 hours): Temp Pulse Resp BP Pulse Ox 98.0 F 65 20 121/55 L 96 07/03/17 07:55 07/03/17 07:55 07/03/17 07:55 07/03/17 12:40 07/03/17 07:55 - Medications Medications: Current Medications Artificial Tears (Artificial Tears) 1 drop OU TID [facility] Last Admin: 07/03/17 11:59 Dose: 1 drop Ascorbic Acid (Vitamin C 500 Mg Tab) 500 mg PO DAILY [facility] Last Admin: 07/03/17 08:36 Dose: 500 mg Atorvastatin Calcium (Lipitor) 10 mg PO HS [facility] Last Admin: 07/02/17 22:47 Dose: 10 mg Docusate Sodium (Colace) 200 mg PO DAILY [facility] Last Admin: 07/03/17 08:35 Dose: 200 mg Ezetimibe (Zetia) 10 mg PO HS [facility] Last Admin: 07/02/17 22:42 Dose: 10 mg Fentanyl (Duragesic) 1 patch TD Q3D [facility] PRN Reason: Protocol Last Admin: 07/02/17 15:16 Dose: Not Given Fluoxetine HCl (Prozac) 10 mg PO HS [facility] Last Admin: 07/02/17 22:42 Dose: 10 mg Gabapentin (Neurontin) 300 mg PO TID [facility] Last Admin: 07/03/17 11:59 Dose: 300 mg Sodium Chloride (Sodium Chloride 0.9%) 500 mls @ 70 mls/hr IV .Q7H9M [facility] Last Admin: 07/03/17 01:20 Dose: Not Given Insulin Human Regular (Humulin R) 0 units SC ACHS [facility] PRN Reason: Protocol Last Admin: 07/03/17 11:56 Dose: Not Given Levothyroxine Sodium (Synthroid) 75 mcg PO DAILY [facility] Last Admin: 07/03/17 08:35 Dose: 75 mcg Multivitamins/Minerals (Therapeutic-M Tab) 1 tab PO DAILY [facility] Last Admin: 07/03/17 08:35 Dose: 1 tab Nouei-8-Chuk Ethyl Esters (Lovaza) 2 gm PO BID [facility] Last Admin: 07/03/17 08:34 Dose: 2 gm Pantoprazole Sodium (Protonix Ec Tab) 20 mg PO DAILY [facility] Last Admin: 07/03/17 08:35 Dose: 20 mg Polyethylene Glycol (Miralax) 17 gm PO DAILY [facility] Last Admin: 07/03/17 08:36 Dose: 17 gm - Labs Labs: 07/02/17 16:44 07/03/17 05:20 - Constitutional Appears: No Acute Distress, Chronically Ill - Head Exam Head Exam: NORMAL INSPECTION - Eye Exam Eye Exam: PERRL - ENT Exam ENT Exam: Normal Exam - Neck Exam Neck Exam: Normal Inspection - Respiratory Exam Respiratory Exam: Clear to Ausculation Bilateral - Cardiovascular Exam Cardiovascular Exam: REGULAR RHYTHM - GI/Abdominal Exam GI & Abdominal Exam: Soft, Normal Bowel Sounds - Extremities Exam Additional comments: L hand contracted, Paralysis BLE, R-L foot droop. - Back Exam Additional comments: Left sacral with pressure ulcer stage 1. - Neurological Exam Neurological Exam: Alert, Oriented x3 Additional comments: Paraplegia, no movements or sensations in lower extremities, R-L foot droop. - Psychiatric Exam Psychiatric exam: Depressed - Skin Skin Exam: Warm Assessment and Plan (1) Devic's disease Status: Chronic (2) Uncontrolled type 2 diabetes mellitus Status: Acute (3) Dyslipidemia Status: Chronic (4) Hypothyroidism Status: Chronic (5) Constipation Status: Chronic (6) Depression Status: Chronic - Assessment and Plan (Free Text) Plan: Pt improved and stable to be discharged to [facility], I will follow up Pt in this facility
== END 2017-07-03 14:45 ==
LOC: H.MEDSURG1 09:29
PROVIDERS: ADMIT Internal Medicine Pulmonary Disease; ATTEND Internal Medicine Pulmonary Disease
DX: G36.0 Neuromyelitis optica [Devic] (principal); E03.9 Hypothyroidism, unspecified; E11.65 Type 2 diabetes mellitus with hyperglycemia; E78.00 Pure hypercholesterolemia, unspecified; E78.5 Hyperlipidemia, unspecified; F03.90 Unspecified dementia, unspecified severity, without behavioral disturbance, psychotic disturbance, mood disturbance, and anxiety; F32.9 Major depressive disorder, single episode, unspecified; G35 Multiple sclerosis; G82.20 Paraplegia, unspecified; H40.9 Unspecified glaucoma; I10 Essential (primary) hypertension; K59.00 Constipation, unspecified; Z79.4 Long term (current) use of insulin; Z87.440 Personal history of urinary (tract) infections; F41.9 Anxiety disorder, unspecified; K29.70 Gastritis, unspecified, without bleeding; M19.90 Unspecified osteoarthritis, unspecified site; R32 Unspecified urinary incontinence; L89.151 Pressure ulcer of sacral region, stage 1; Z23 Encounter for immunization
CPT/HCPCS: 36415; 80048; 80053; 82948; 85025; 96372; 96416; G0008; G0378; J7040; J8540; J9310; Q2035

== ENCOUNTER 2017-08-27 08:12 | Observation (INO) | payer MEDICARE, MEDICAID ==
[2017-08-27 09:14] LABS: BASO # 0.1 K/uL (0.0-0.2); BASO % 1.4 % (0.0-2.0); EOS # 0.1 K/uL (0.0-0.7); EOS % 2.6 % (0.0-4.0); LYMPH # 1.6 K/uL (1.0-4.3); LYMPH % 29.4 % (20.0-40.0); MEAN CELL VOLUME 98.5 fl (81.0-99.0); MEAN CORPUSCULAR HEMOGLOBIN 32.9 pg (27.0-31.0); MEAN CORPUSCULAR HGB CONC 33.4 g/dL (33.0-37.0); MEAN PLATELET VOLUME 10.4 fl (7.2-11.7); MONO # 0.5 K/uL (0.0-0.8); MONO % 9.3 % (0.0-10.0); NEUT % 57.3 % (50.0-75.0); NRBC % 0.2 % (0.0-0.0); RED CELL DISTRIBUTION WIDTH 13.2 % (11.5-14.5); WHITE BLOOD COUNT 5.3 K/uL (4.8-10.8)
[2017-08-27 09:27] LABS: ALB/GLOB RATIO 1.3 (1.0-2.1); ALKALINE PHOSPHATASE 64 U/L (38-126); ALT/SGPT 35 U/L (9-52); AST/SGOT 36 U/L (14-36); BILIRUBIN,TOTAL 0.6 mg/dl (0.2-1.3); BLOOD UREA NITROGEN 19 mg/dl (7-17); CALCIUM 8.8 mg/dL (8.4-10.2); CARBON DIOXIDE 24 mmol/L (22-30); CHLORIDE 107 mmol/L (98-107); GFR AFRICAN-AMERICAN > 60; GLUCOSE,RANDOM 128 mg/dL (65-105); POTASSIUM 4.5 MMOL/L (3.6-5.0); SODIUM 141 mmol/l (132-148); TOTAL PROTEIN 6.5 G/DL (6.3-8.2)
[2017-08-27] MEDS ORDERED: Acetaminophen 650mg/20.3ml solution UD PO ONE (09:30)
--- NOTE | 2017-08-27 09:31 | CP.PCM.PCO ---
Physician Communication Note - Physician Communication Note Physician Communication Note: Pt's POLST form reviewed.Pt is DNR/DNI, code status ordered.Dr. Chiu aware
[2017-08-27] MEDS ORDERED: Dexamethasone 10 MG in Sodium Chloride 0.9% 50 ML IVPB ONE (09:45)
[2017-08-27] MEDS: Sodium Chloride 0.9% 500 ML IV SCH ×2 (09:58→17:05)
[2017-08-27] MEDS ORDERED: DiphenhydrAMINE 50 mg/ml Inj IVP ONE (10:00)
--- NOTE | 2017-08-27 10:05 | CP.PCM.CON ---
History of Present Illness - History of Present Illness History of Present Illness: This is a 82 yrs old female who is admitted for chemotherapy for devic.s diseaase. She has no complaint at this time. Her appetite is ok and her abdominal pain is no longer present. She has been on =rituxaan for a while and doing well. Past Patient History - Tetanus Immunizations Tetanus Immunization: Unknown - Past Medical History & Family History Past Medical History?: Yes - Past Social History Smoking Status: Never Smoked - CARDIAC Hx Cardiac Disorders: Yes Hx Hypercholesterolemia: Yes Hx Hypertension: Yes - PULMONARY Hx Respiratory Disorders: No - NEUROLOGICAL Hx Neurological Disorder: Yes Hx Dementia: Yes Hx Multiple Sclerosis: Yes Other/Comment: Devic's Disease - HEENT Hx HEENT Problems: Yes Hx Glaucoma: Yes (left eye) - RENAL Hx Chronic Kidney Disease: No - ENDOCRINE/METABOLIC Hx Endocrine Disorders: Yes Hx Diabetes Mellitus Type 1: Yes Hx Hypothyroidism: Yes - HEMATOLOGICAL/ONCOLOGICAL Hx Blood Disorders: Yes Hx Chemotherapy: Yes (for multiple sclerosis) Hx Shingles: Yes - INTEGUMENTARY Hx Dermatological Problems: No - MUSCULOSKELETAL/RHEUMATOLOGICAL Hx Musculoskeletal Disorders: Yes Hx Arthritis: Yes Hx Falls: No - GASTROINTESTINAL Hx Gastrointestinal Disorders: Yes Hx Gastritis: Yes - GENITOURINARY/GYNECOLOGICAL Hx Genitourinary Disorders: Yes Hx Incontinence: Yes Hx Urinary Tract Infection: Yes Other/Comment: urosepsis - PSYCHIATRIC Hx Psychophysiologic Disorder: Yes Hx Anxiety: Yes Hx Depression: Yes Hx Substance Use: No - SURGICAL HISTORY Hx Surgeries: No - ANESTHESIA Hx Anesthesia: No Meds Allergies/Adverse Reactions: Allergies Allergy/AdvReac Type Severity Reaction Status Date / Time ciprofloxacin [From Cipro] Allergy RASH Verified 05/07/17 11:58 ciprofloxacin HCl Allergy RASH Verified 05/07/17 11:58 [From Cipro] - Medications Medications: Current Medications Diphenhydramine HCl (Benadryl) 25 mg IVP ONCE ONE Stop: 08/27/17 10:01 Last Admin: 08/27/17 09:55 Dose: 25 mg Dexamethasone 10 mg/ Sodium (Chloride) 51 mls @ 102 mls/hr IVPB ONCE ONE Stop: 08/27/17 10:14 Last Admin: 08/27/17 09:57 Dose: 102 mls/hr Sodium Chloride (Sodium Chloride 0.9%) 500 mls @ 70 mls/hr [facility] Last Admin: 08/27/17 09:58 Dose: 70 mls/hr Rituximab 585 mg/ Sodium (Chloride) 308.5 mls @ 0 mls/hr IV ONCE ONE; Per Protocol PRN Reason: Protocol Stop: 08/27/17 08:52 Physical Exam - Additional Findings Additional findings: Physical examinatlion; Alert, well oriented in no acute distress neck supple, no adenopathy Chest; Clear, no rales or rhonchi Heart;, RSR, no murmur Abd; Soft, no mass, no h/s megaly Results - Vital Signs Recent Vital Signs: Last Vital Signs Temp 97.9 F 08/27/17 08:20 Pulse 57 L 08/27/17 08:20 Resp 18 08/27/17 08:20 BP 92/54 L 08/27/17 08:20 Pulse Ox 97 08/27/17 08:20 - Labs Result Diagrams: 08/27/17 09:02 08/27/17 09:02 Labs: Laboratory Results - last 24 hr 08/27/17 08/27/17 09:02 09:02 WBC 5.3 RBC 3.55 L Hgb 11.7 L Hct 35.0 MCV 98.5 MCH 32.9 H MCHC 33.4 RDW 13.2 Plt Count 156 MPV 10.4 Neut % (Auto) 57.3 Lymph % (Auto) 29.4 Major % (Auto) 9.3 Eos % (Auto) 2.6 Baso % (Auto) 1.4 Neut # 3.0 Lymph # 1.6 Major # 0.5 Eos # 0.1 Baso # 0.1 Sodium 141 Potassium 4.5 Chloride 107 Carbon Dioxide 24 Anion Gap 15 BUN 19 H Creatinine 1.0 Est GFR ( Amer) > 60 Est GFR (Non-Af Amer) 53 Random Glucose 128 H Calcium 8.8 Total Bilirubin 0.6 AST 36 ALT 35 Alkaline Phosphatase 64 Total Protein 6.5 Albumin 3.7 Globulin 2.9 Albumin/Globulin Ratio 1.3 Assessment & Plan - Assessment and Plan (Free Text) Assessment: impression; Elio disease Plan: Plan; Will give rituxan as iv over 12 hrs. - Date & Time Date: 08/27/17 Time: 10:15
[2017-08-27] MEDS ORDERED: SODIUM CHLORIDE 0.9% IV ONE (10:45)
[2017-08-27] MEDS ORDERED: RITUXIMAB IV ONE (10:45)
[2017-08-27] MEDS: Enoxaparin 40 mg Syringe SC SCH (17:03)
[2017-08-27] MEDS: Omega-3-Acid Ethyl Esters 1 GM Cap PO SCH (17:04)
[2017-08-27] MEDS: Insulin Lispro (humaLOG) 100 Units/ml Inj SC SCH ×2 (17:04→21:07)
--- NOTE | 2017-08-27 17:36 | CP.PCM.HP ---
History of Present Illness - History of Present Illness History of Present Illness: CC: Devic's Disease This is a 82 y/o f, [facility] resident, brought by EMS to [facility] to have Rituxan infusion for Devic's Disease. Pt with no other c/o. Pt denied: fever, chills, n/v/d, abdominal pain. CP, SOB. PMHx: O/A, DMII, Hypothyroidism, High Cholesterol, Depression, Hx of paraplegia lower extremities. Present on Admission - Present on Admission Any Indicators Present on Admission: No Review of Systems - Constitutional Constitutional: Weakness - EENT Eyes: Requires Corrective Lenses Ears: Other (negative) Nose/Mouth/Throat: Other (negative) - Cardiovascular Cardiovascular: Other (negative) - Respiratory Respiratory: Other (negative) - Gastrointestinal Gastrointestinal: Constipation - Genitourinary Genitourinary: Other (negative) - Musculoskeletal Musculoskeletal: Arthralgias - Integumentary Integumentary: Other - Neurological Neurological: Other (Paraplegia) - Psychiatric Psychiatric: Depression - Endocrine Endocrine: Other (negative) - Hematologic/Lymphatic Hematologic: Other (negative) Past Patient History - Tetanus Immunizations Tetanus Immunization: Unknown - Past Medical History & Family History Past Medical History?: Yes Pertinent Family History: Unknown - Past Social History Smoking Status: Never Smoked Alcohol: None Drugs: Denies Home Situation {Lives}: Prison - CARDIAC Hx Cardiac Disorders: Yes Hx Hypercholesterolemia: Yes Hx Hypertension: Yes - PULMONARY Hx Respiratory Disorders: No - NEUROLOGICAL Hx Neurological Disorder: Yes Hx Dementia: Yes Hx Multiple Sclerosis: Yes Other/Comment: Devic's Disease - HEENT Hx HEENT Problems: Yes Hx Glaucoma: Yes (left eye) - RENAL Hx Chronic Kidney Disease: No - ENDOCRINE/METABOLIC Hx Endocrine Disorders: Yes Hx Diabetes Mellitus Type 1: Yes Hx Hypothyroidism: Yes - HEMATOLOGICAL/ONCOLOGICAL Hx Blood Disorders: Yes Hx Chemotherapy: Yes (for multiple sclerosis) Hx Shingles: Yes - INTEGUMENTARY Hx Dermatological Problems: No - MUSCULOSKELETAL/RHEUMATOLOGICAL Hx Musculoskeletal Disorders: Yes Hx Arthritis: Yes Hx Falls: No - GASTROINTESTINAL Hx Gastrointestinal Disorders: Yes Hx Gastritis: Yes - GENITOURINARY/GYNECOLOGICAL Hx Genitourinary Disorders: Yes Hx Incontinence: Yes Hx Urinary Tract Infection: Yes Other/Comment: urosepsis - PSYCHIATRIC Hx Psychophysiologic Disorder: Yes Hx Anxiety: Yes Hx Depression: Yes Hx Substance Use: No - SURGICAL HISTORY Hx Surgeries: No - ANESTHESIA Hx Anesthesia: No Meds Allergies/Adverse Reactions: Allergies Allergy/AdvReac Type Severity Reaction Status Date / Time ciprofloxacin [From Cipro] Allergy RASH Verified 05/07/17 11:58 ciprofloxacin HCl Allergy RASH Verified 05/07/17 11:58 [From Cipro] Physical Exam - Constitutional Appears: No Acute Distress, Chronically Ill - Head Exam Head Exam: NORMAL INSPECTION - Eye Exam Eye Exam: PERRL - ENT Exam ENT Exam: Normal Oropharynx - Neck Exam Neck exam: Positive for: Normal Inspection - Respiratory Exam Respiratory Exam: Decreased Breath Sounds - Cardiovascular Exam Cardiovascular Exam: REGULAR RHYTHM - GI/Abdominal Exam GI & Abdominal Exam: Normal Bowel Sounds, Soft - Extremities Exam Additional comments: No movements or sensation in lower extremities, R-L foot droop - Back Exam Back exam: NORMAL INSPECTION Additional comments: Sacral healed wounds - Neurological Exam Neurological exam: Alert, Oriented x3 Additional comments: Paraplegia lower extremities. - Psychiatric Exam Psychiatric exam: Depressed - Skin Skin Exam: Warm Results - Vital Signs Recent Vital Signs: Last Vital Signs Temp 98.2 F 08/27/17 15:56 Pulse 57 L 08/27/17 15:56 Resp 20 08/27/17 15:56 BP 147/66 08/27/17 15:56 Pulse Ox 94 L 08/27/17 15:56 reviewed Srinivasan - Labs Result Diagrams: 08/27/17 09:02 08/27/17 09:02 Labs: Laboratory Results - last 24 hr 08/27/17 08/27/17 08/27/17 09:02 09:02 10:45 WBC 5.3 RBC 3.55 L Hgb 11.7 L Hct 35.0 MCV 98.5 MCH 32.9 H MCHC 33.4 RDW 13.2 Plt Count 156 MPV 10.4 Neut % (Auto) 57.3 Lymph % (Auto) 29.4 [place] % (Auto) 9.3 Eos % (Auto) 2.6 Baso % (Auto) 1.4 Neut # 3.0 Lymph # 1.6 Edmonson # 0.5 Eos # 0.1 Baso # 0.1 Sodium 141 Potassium 4.5 Chloride 107 Carbon Dioxide 24 Anion Gap 15 BUN 19 H Creatinine 1.0 Est GFR ( Amer) > 60 Est GFR (Non-Af Amer) 53 POC Glucose (mg/dL) 259 H Random Glucose 128 H Calcium 8.8 Total Bilirubin 0.6 AST 36 ALT 35 Alkaline Phosphatase 64 Total Protein 6.5 Albumin 3.7 Globulin 2.9 Albumin/Globulin Ratio 1.3 08/27/17 16:15 WBC RBC Hgb Hct MCV MCH MCHC RDW Plt Count MPV Neut % (Auto) Lymph % (Auto) [place] % (Auto) Eos % (Auto) Baso % (Auto) Neut # Lymph # Edmonson # Eos # Baso # Sodium Potassium Chloride Carbon Dioxide Anion Gap BUN Creatinine Est GFR ( Amer) Est GFR (Non-Af Amer) POC Glucose (mg/dL) 238 H Random Glucose Calcium Total Bilirubin AST ALT Alkaline Phosphatase Total Protein Albumin Globulin Albumin/Globulin Ratio reviewed J.PDash Assessment & Plan (1) Devic's disease Status: Chronic Priority: High (2) Paraplegia Status: Acute (3) Diabetes mellitus Status: Chronic Priority: Medium (4) Dyslipidemia Status: Chronic Priority: Low (5) Hypothyroid Status: Chronic Priority: Medium (6) Depression Status: Chronic Priority: Medium - Assessment and Plan (Free Text) Plan: Rituxan infusion and rest of Tx. - Date & Time Date: 08/27/17 Time: 09:30
[2017-08-28] MEDS: Sodium Chloride 0.9% 500 ML IV SCH (04:33)
[2017-08-28] MEDS ORDERED: Levothyroxine 75 MCG TAB PO SCH (06:30)
[2017-08-28 07:42] VITALS: PULSE 52; RESP 20; TEMP 99.1; O2SAT 96
[2017-08-28] MEDS: Insulin Lispro (humaLOG) 100 Units/ml Inj SC SCH ×2 (08:31→13:09)
[2017-08-28] MEDS ORDERED: POLYETHYLENE GLYCOL 3350 17 GM/Dose PACKET PO SCH (09:00)
[2017-08-28] MEDS ORDERED: Pantoprazole 20 mg EC Tab PO SCH (09:00)
[2017-08-28] MEDS ORDERED: Multivitamin With Minerals Tab PO SCH (09:00)
[2017-08-28] MEDS: Omega-3-Acid Ethyl Esters 1 GM Cap PO SCH (09:51)
[2017-08-28] MEDS: Enoxaparin 40 mg Syringe SC SCH (09:52)
[2017-08-28 10:55] VITALS: BP 124/63
--- NOTE | 2017-08-28 15:23 | CP.PCM.PN ---
Subjective - Date & Time of Evaluation Date of Evaluation: 08/28/17 Time of Evaluation: 09:20 - Subjective Subjective: F/U Devic's Disease. Pt with no A/D, no c/o, Objective - Vital Signs/Intake and Output Vital Signs (last 24 hours): Temp Pulse Resp BP Pulse Ox 99.1 F 52 L 20 124/63 96 08/28/17 07:42 08/28/17 07:42 08/28/17 07:42 08/28/17 10:54 08/28/17 07:42 - Medications Medications: Current Medications Ascorbic Acid (Vitamin C 500 Mg Tab) 500 mg PO DAILY [facility] Last Admin: 08/28/17 09:55 Dose: 500 mg Atorvastatin Calcium (Lipitor) 10 mg PO HS [facility] Last Admin: 08/27/17 21:12 Dose: 10 mg Docusate Sodium (Colace) 200 mg PO HS [facility] Last Admin: 08/27/17 21:11 Dose: 200 mg Ezetimibe (Zetia) 10 mg PO HS [facility] Last Admin: 08/27/17 21:12 Dose: 10 mg Enalapril Maleate (Vasotec) 10 mg PO DAILY [facility] Last Admin: 08/28/17 09:55 Dose: 10 mg Enoxaparin Sodium (Lovenox) 40 mg SC DAILY [facility] PRN Reason: Protocol Last Admin: 08/28/17 09:52 Dose: 40 mg Fentanyl (Duragesic) 1 patch TD Q3D [facility] PRN Reason: Protocol Last Admin: 08/28/17 08:29 Dose: 1 patch Fluoxetine HCl (Prozac) 10 mg PO HS [facility] Last Admin: 08/27/17 21:12 Dose: 10 mg Gabapentin (Neurontin) 300 mg PO TID [facility] Last Admin: 08/28/17 13:11 Dose: 300 mg Sodium Chloride (Sodium Chloride 0.9%) 500 mls @ 70 mls/hr IV .Q7H9M [facility] Last Admin: 08/28/17 04:33 Dose: Not Given Insulin Human Lispro (Humalog) 0 units SC ACHS [facility] PRN Reason: Protocol Last Admin: 08/28/17 13:09 Dose: 2 units Lactulose (Enulose) 20 gm PO HS [facility] Last Admin: 08/27/17 21:13 Dose: 20 gm Levothyroxine Sodium (Synthroid) 75 mcg PO DAILY@0630 [facility] Last Admin: 08/28/17 06:16 Dose: 75 mcg Multivitamins/Minerals (Therapeutic-M Tab) 1 tab PO DAILY [facility] Last Admin: 08/28/17 09:54 Dose: 1 tab Gdgsl-4-Wwfa Ethyl Esters (Lovaza) 2 gm PO BID [facility] Last Admin: 08/28/17 09:51 Dose: 2 gm Pantoprazole Sodium (Protonix Ec Tab) 20 mg PO DAILY [facility] Last Admin: 08/28/17 09:54 Dose: 20 mg Polyethylene Glycol (Miralax) 17 gm PO DAILY [facility] Last Admin: 08/28/17 09:53 Dose: 17 gm - Labs Labs: 08/27/17 09:02 08/27/17 09:02 - Constitutional Appears: No Acute Distress, Chronically Ill - Head Exam Head Exam: NORMAL INSPECTION - Eye Exam Eye Exam: PERRL - ENT Exam ENT Exam: Normal Exam - Neck Exam Neck Exam: Normal Inspection - Respiratory Exam Respiratory Exam: Decreased Breath Sounds - Cardiovascular Exam Cardiovascular Exam: REGULAR RHYTHM - GI/Abdominal Exam GI & Abdominal Exam: Soft, Normal Bowel Sounds - Extremities Exam Additional comments: No movements or sensations in lower extremities, R-L foot droop. - Back Exam Additional comments: Sacral healed wound - Neurological Exam Neurological Exam: Alert, Oriented x3 Additional comments: Paraplegia lower extremities. - Psychiatric Exam Psychiatric exam: Depressed - Skin Skin Exam: Warm Assessment and Plan (1) Devic's disease Status: Chronic (2) Paraplegia Status: Acute (3) Diabetes mellitus Status: Chronic (4) Dyslipidemia Status: Chronic (5) Hypothyroid Status: Chronic (6) Depression Status: Chronic - Assessment and Plan (Free Text) Plan: Pt had Rituxan infusion with no adverse effect, Pt improved and stable to be discharged to [facility], I will follow Pt in that facility.
== END 2017-08-28 15:35 ==
LOC: H.MEDSURG1 08:12
PROVIDERS: ADMIT Internal Medicine Pulmonary Disease; ATTEND Internal Medicine Pulmonary Disease
DX: G36.0 Neuromyelitis optica [Devic] (principal); G82.20 Paraplegia, unspecified; H40.9 Unspecified glaucoma; I10 Essential (primary) hypertension; Z51.11 Encounter for antineoplastic chemotherapy; E10.9 Type 1 diabetes mellitus without complications; Z79.4 Long term (current) use of insulin; Z87.440 Personal history of urinary (tract) infections; B02.9 Zoster without complications; F41.9 Anxiety disorder, unspecified; F45.9 Somatoform disorder, unspecified; K29.70 Gastritis, unspecified, without bleeding; M19.90 Unspecified osteoarthritis, unspecified site; R32 Unspecified urinary incontinence; E03.9 Hypothyroidism, unspecified; E78.00 Pure hypercholesterolemia, unspecified; E78.5 Hyperlipidemia, unspecified; F03.90 Unspecified dementia, unspecified severity, without behavioral disturbance, psychotic disturbance, mood disturbance, and anxiety; F32.9 Major depressive disorder, single episode, unspecified; G35 Multiple sclerosis
CPT/HCPCS: 36415; 80053; 82948; 85025; 96365; 96367; 96372; 96375; 96416; G0378; J1100; J1200; J1650; J2405; J7040; J9310

== ENCOUNTER 2017-10-22 12:13 | Observation (INO) | payer MEDICARE, MEDICAID ==
[2017-10-23 08:23] VITALS: BMI 22.4
[2017-10-23] MEDS: Sodium Chloride 0.9% 500 ML IV SCH ×2 (09:00→16:30)
[2017-10-23] MEDS ORDERED: DiphenhydrAMINE 50 mg/ml Inj IVP SCH (09:15)
[2017-10-23] MEDS ORDERED: Dexamethasone 10 MG in Sodium Chloride 0.9% 50 ML IVPB SCH (09:15)
[2017-10-23] MEDS ORDERED: RITUXIMAB IV SCH (09:45)
[2017-10-23] MEDS ORDERED: SODIUM CHLORIDE 0.9% IV SCH (09:45)
--- NOTE | 2017-10-23 10:50 | CP.PCM.CON ---
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 She was started on Rituximab and since then all her symptoms have been stable. She comes every other month for the Rituxan infusion. She had a reaction when the infusion was given according to protocol, but has done fine when given over 12 hrs. She is here for the infusion. No complaints at this time. She has a past h/o copd, HTN, DM,hyperlipidemia Past Patient History - Tetanus Immunizations Tetanus Immunization: Unknown - Past Medical History & Family History Past Medical History?: Yes - Past Social History Smoking Status: Never Smoked - CARDIAC Hx Cardiac Disorders: Yes Hx Hypercholesterolemia: Yes Hx Hypertension: Yes - PULMONARY Hx Respiratory Disorders: No - NEUROLOGICAL Hx Neurological Disorder: Yes Hx Dementia: Yes Hx Multiple Sclerosis: Yes Other/Comment: Devic's Disease - HEENT Hx HEENT Problems: Yes Hx Glaucoma: Yes (left eye) - RENAL Hx Chronic Kidney Disease: No - ENDOCRINE/METABOLIC Hx Endocrine Disorders: Yes Hx Diabetes Mellitus Type 1: Yes Hx Hypothyroidism: Yes - HEMATOLOGICAL/ONCOLOGICAL Hx Blood Disorders: Yes Hx Chemotherapy: Yes (for multiple sclerosis) Hx Shingles: Yes - INTEGUMENTARY Hx Dermatological Problems: No - MUSCULOSKELETAL/RHEUMATOLOGICAL Hx Musculoskeletal Disorders: Yes Hx Arthritis: Yes Hx Falls: No - GASTROINTESTINAL Hx Gastrointestinal Disorders: Yes Hx Gastritis: Yes - GENITOURINARY/GYNECOLOGICAL Hx Genitourinary Disorders: Yes Hx Incontinence: Yes Hx Urinary Tract Infection: Yes Other/Comment: urosepsis - PSYCHIATRIC Hx Psychophysiologic Disorder: Yes Hx Anxiety: Yes Hx Depression: Yes Hx Substance Use: No - SURGICAL HISTORY Hx Surgeries: No - ANESTHESIA Hx Anesthesia: No Hx Anesthesia Reactions: No Hx Malignant Hyperthermia: No Has any member of the family had a problem w/ anesthesia?: No Meds Allergies/Adverse Reactions: Allergies Allergy/AdvReac Type Severity Reaction Status Date / Time ciprofloxacin [From Cipro] Allergy RASH Verified 10/23/17 08:24 ciprofloxacin HCl Allergy RASH Verified 10/23/17 08:24 [From Cipro] - Medications Medications: Current Medications Acetaminophen (Tylenol 325mg Tab) 650 mg PO STAT ADY Stop: 10/23/17 17:00 Last Admin: 10/23/17 09:33 Dose: 650 mg Diphenhydramine HCl (Benadryl) 25 mg IVP ONCE ADY Stop: 10/23/17 17:00 Last Admin: 10/23/17 09:40 Dose: 25 mg Famotidine (Pepcid) 20 mg IVP STAT ADY Stop: 10/23/17 17:00 Last Admin: 10/23/17 09:35 Dose: 20 mg Dexamethasone 10 mg/ Sodium (Chloride) 51 mls @ 102 mls/hr IVPB ONCE ADY Stop: 10/23/17 17:00 Last Admin: 10/23/17 09:50 Dose: 102 mls/hr Sodium Chloride (Sodium Chloride 0.9%) 500 mls @ 70 mls/hr IV .Q7H9M ADY Rituximab 585 mg/ Sodium (Chloride) 308.5 mls @ 25.708 mls/hr IV ONCE ADY; As Directed PRN Reason: Protocol Stop: 10/23/17 23:00 Ondansetron HCl 16 mg/ Sodium (Chloride) 58 mls @ 116 mls/hr IVPB ONCE ADY Stop: 10/23/17 17:00 Last Admin: 10/23/17 09:48 Dose: 116 mls/hr Physical Exam - Additional Findings Additional findings: Physial exam; Alert, well oriented in no acute distress,obese Chest; Clear, no rales or rhonchi neck; supple/ no adenopathy Heart; RSR, no murmur abd; soft, no mass, no h/s megaly Results - Vital Signs Recent Vital Signs: Last Vital Signs Temp Pulse Resp 17 10/23/17 10:07 BP Pulse Ox Assessment & Plan - Assessment and Plan (Free Text) Assessment: IMPRESSION; Devics disease Plan: Plan; will give the rituxan over 12 hrs, and discharge her tomorrow.
[2017-10-23] MEDS: Insulin Regular 100 units/ml SC SCH ×2 (16:29→22:28)
[2017-10-23] MEDS: Omega-3-Acid Ethyl Esters 1 GM Cap PO SCH (16:30)
--- NOTE | 2017-10-23 16:36 | CP.PCM.HP ---
History of Present Illness - History of Present Illness History of Present Illness: CC: Devic's Disease. 82 y/o F, [facility] Home resident, brought by EMS to [id number] with previous schedule admission to have Ritusimab infusion due to Deena's Disease. Pt denied: Fever, chills, n/v/d, abdominal pain, CP cough, CP, palpitations, sick contact. Other PMHx: DMII, High-Cholesterol, Hypothyroidism, Depression, O/A. Present on Admission - Present on Admission Any Indicators Present on Admission: No Review of Systems - Constitutional Constitutional: Weakness - EENT Eyes: Requires Corrective Lenses Ears: Other (negative) Nose/Mouth/Throat: Other (negative) - Breasts Breasts: Other (negative) - Cardiovascular Cardiovascular: Other (negative) - Respiratory Respiratory: Other (negative) - Gastrointestinal Gastrointestinal: Other (negative) - Genitourinary Genitourinary: Other (negative) - Musculoskeletal Musculoskeletal: Arthralgias - Integumentary Integumentary: Other (negative) - Neurological Neurological: Other (Paraplegia) - Psychiatric Psychiatric: Depression - Endocrine Endocrine: Other (negative) - Hematologic/Lymphatic Hematologic: Other (negative) Past Patient History - Tetanus Immunizations Tetanus Immunization: Unknown - Past Medical History & Family History Past Medical History?: Yes Pertinent Family History: Unknown - Past Social History Smoking Status: Never Smoked Alcohol: None Drugs: Denies Home Situation {Lives}: Long Term - CARDIAC Hx Cardiac Disorders: Yes Hx Hypercholesterolemia: Yes Hx Hypertension: Yes - PULMONARY Hx Respiratory Disorders: No - NEUROLOGICAL Hx Neurological Disorder: Yes Hx Dementia: Yes Hx Multiple Sclerosis: Yes Other/Comment: Devic's Disease - HEENT Hx HEENT Problems: Yes Hx Glaucoma: Yes (left eye) - RENAL Hx Chronic Kidney Disease: No - ENDOCRINE/METABOLIC Hx Endocrine Disorders: Yes Hx Diabetes Mellitus Type 1: Yes Hx Hypothyroidism: Yes - HEMATOLOGICAL/ONCOLOGICAL Hx Blood Disorders: Yes Hx Chemotherapy: Yes (for multiple sclerosis) Hx Shingles: Yes - INTEGUMENTARY Hx Dermatological Problems: No - MUSCULOSKELETAL/RHEUMATOLOGICAL Hx Musculoskeletal Disorders: Yes Hx Arthritis: Yes Hx Falls: No - GASTROINTESTINAL Hx Gastrointestinal Disorders: Yes Hx Gastritis: Yes - GENITOURINARY/GYNECOLOGICAL Hx Genitourinary Disorders: Yes Hx Incontinence: Yes Hx Urinary Tract Infection: Yes Other/Comment: urosepsis - PSYCHIATRIC Hx Psychophysiologic Disorder: Yes Hx Anxiety: Yes Hx Depression: Yes Hx Substance Use: No - SURGICAL HISTORY Hx Surgeries: No - ANESTHESIA Hx Anesthesia: No Hx Anesthesia Reactions: No Hx Malignant Hyperthermia: No Has any member of the family had a problem w/ anesthesia?: No Meds Allergies/Adverse Reactions: Allergies Allergy/AdvReac Type Severity Reaction Status Date / Time ciprofloxacin [From Cipro] Allergy RASH Verified 10/23/17 08:24 ciprofloxacin HCl Allergy RASH Verified 10/23/17 08:24 [From Cipro] Physical Exam - Constitutional Appears: Chronically Ill - Head Exam Head Exam: NORMAL INSPECTION - Eye Exam Eye Exam: PERRL - ENT Exam ENT Exam: Normal Oropharynx - Neck Exam Neck exam: Positive for: Normal Inspection - Respiratory Exam Respiratory Exam: NORMAL BREATHING PATTERN - Cardiovascular Exam Cardiovascular Exam: REGULAR RHYTHM - GI/Abdominal Exam GI & Abdominal Exam: Normal Bowel Sounds, Soft - Extremities Exam Additional comments: Paraplegia, no movements or sensation in lower extremities, R-L foot droop - Neurological Exam Neurological exam: Alert, Oriented x3 Additional comments: Paraplegia lower extremities - Psychiatric Exam Psychiatric exam: Depressed - Skin Skin Exam: Warm Results - Vital Signs Recent Vital Signs: Last Vital Signs Temp Pulse Resp 17 10/23/17 10:07 BP Pulse Ox reviewed J.P. - Labs Labs: Laboratory Results - last 24 hr 10/23/17 10/23/17 11:21 15:51 POC Glucose (mg/dL) 178 H 271 H reviewed J.P. Assessment & Plan (1) Devic's disease Status: Chronic Priority: High (2) DM II (diabetes mellitus, type II), controlled Status: Chronic Priority: Medium (3) Hypothyroidism Status: Chronic Priority: Low (4) Gastritis Status: Chronic Priority: Low (5) Depression Status: Acute - Assessment and Plan (Free Text) Plan: Continue Vasotec, Neurontin, Lovaza, Lipitor, Synthroid and rest of Tx. Hematology consult appreciated. - Date & Time Date: 10/23/17 Time: 10:00
[2017-10-24 01:19] VITALS: RESP 18; O2SAT 95
[2017-10-24] MEDS: Insulin Regular 100 units/ml SC SCH ×2 (07:12→12:12)
[2017-10-24 08:02] VITALS: BP 140/61; PULSE 71; TEMP 99
[2017-10-24] MEDS ORDERED: Levothyroxine 75 MCG TAB PO SCH (09:00)
[2017-10-24] MEDS ORDERED: Pantoprazole 20 mg EC Tab PO SCH (09:00)
[2017-10-24] MEDS: Omega-3-Acid Ethyl Esters 1 GM Cap PO SCH (09:01)
[2017-10-24 12:58] LABS: HEMOGLOBIN 11.3 g/dL (12.0-16.0); MEAN CELL VOLUME 98.4 fl (81.0-99.0); MEAN CORPUSCULAR HEMOGLOBIN 31.8 pg (27.0-31.0); MEAN CORPUSCULAR HGB CONC 32.3 g/dL (33.0-37.0); RBC 3.56 Mil/uL (3.80-5.20); RED CELL DISTRIBUTION WIDTH 12.8 % (11.5-14.5); WHITE BLOOD COUNT 7.8 K/uL (4.8-10.8)
[2017-10-24 13:01] LABS: BLOOD UREA NITROGEN 21 mg/dl (7-17); CALCIUM 8.4 mg/dL (8.4-10.2); GFR AFRICAN-AMERICAN > 60; GFR NON-AFRICAN AMERICAN 53
--- NOTE | 2017-10-24 13:14 | CP.PCM.DIS ---
Provider - Provider Date of Admission: 10/23/17 08:35 Attending physician: Jameson Chiu MD Primary care physician: Jameson Chiu MD Consults: Hematology, Coco Hess Diagnosis - Discharge Diagnosis (1) Devic's disease Status: Chronic Priority: High (2) DM II (diabetes mellitus, type II), controlled Status: Chronic Priority: Medium (3) Hypothyroidism Status: Chronic Priority: Low (4) Gastritis Status: Chronic Priority: Low (5) Depression Status: Acute Hospital Course - Lab Results Lab Results: Most Recent Lab Values WBC 7.8 K/uL (4.8-10.8) 10/24/17 12:13 RBC 3.56 Mil/uL (3.80-5.20) L 10/24/17 12:13 Hgb 11.3 g/dL (12.0-16.0) L 10/24/17 12:13 Hct 35.0 % (34.0-47.0) 10/24/17 12:13 MCV 98.4 fl (81.0-99.0) 10/24/17 12:13 MCH 31.8 pg (27.0-31.0) H 10/24/17 12:13 MCHC 32.3 g/dL (33.0-37.0) L 10/24/17 12:13 RDW 12.8 % (11.5-14.5) 10/24/17 12:13 Plt Count 152 K/uL (130-400) 10/24/17 12:13 Sodium 137 mmol/l (132-148) 10/24/17 12:13 Potassium 4.7 MMOL/L (3.6-5.0) 10/24/17 12:13 Chloride 102 mmol/L (98-107) 10/24/17 12:13 Carbon Dioxide 27 mmol/L (22-30) 10/24/17 12:13 Anion Gap 13 (10-20) 10/24/17 12:13 BUN 21 mg/dl (7-17) H 10/24/17 12:13 Creatinine 1.0 mg/dl (0.7-1.2) 10/24/17 12:13 Est GFR ( Amer) > 60 10/24/17 12:13 Est GFR (Non-Af Amer) 53 10/24/17 12:13 POC Glucose (mg/dL) 188 mg/dL (65-110) H 10/24/17 11:19 Random Glucose 173 mg/dL (65-105) H 10/24/17 12:13 Calcium 8.4 mg/dL (8.4-10.2) 10/24/17 12:13 - Hospital Course Hospital Course: 82 y/o F, [facility], Hx of with multiple medical condition, previous scheduled to be admitted to [facility] to have Rituximab infusion on DOA for her Deena's Disease. Pt was seen and Tx by Hematology business consultant, Dr. Tellez, after Rituximab was infused completely, Pt had no adverse reaction. no c/o of nausea, vomiting, headache. Pt medical condition improved and stable to retur to [facility], I will follow Pt in that facility. - Date & Time of H&P Date of H&P: 10/23/17 Time of H&P: 10:00 Discharge Exam - Head Exam Head Exam: NORMAL INSPECTION - Eye Exam Eye Exam: PERRL - ENT Exam ENT Exam: Normal Oropharynx - Neck Exam Neck exam: Normal Inspection - Respiratory Exam Respiratory Exam: NORMAL BREATHING PATTERN - Cardiovascular Exam Cardiovascular Exam: REGULAR RHYTHM - GI/Abdominal Exam GI & Abdominal Exam: Normal Bowel Sounds, Soft - Extremities Exam Additional comments: Paraplegia, no movements or sensation in lower extremities, R-L foot droop. - Neurological Exam Neurological exam: Alert, Oriented x3 Additional comments: Paraplegia lower extremities. - Psychiatric Exam Psychiatric exam: Depressed - Skin Skin Exam: Warm Discharge Plan - Follow Up Plan Condition: GOOD Disposition: TRANSF TO SNF Instructions: Rituximab (By injection), Preventing Infections (GEN)
== END 2017-10-24 14:40 ==
LOC: H.MEDSURG1 10-23 08:35
PROVIDERS: ADMIT Internal Medicine Pulmonary Disease; ATTEND Internal Medicine Pulmonary Disease
DX: G36.0 Neuromyelitis optica [Devic] (principal); I10 Essential (primary) hypertension; G35 Multiple sclerosis; F03.90 Unspecified dementia, unspecified severity, without behavioral disturbance, psychotic disturbance, mood disturbance, and anxiety; E03.9 Hypothyroidism, unspecified; E10.9 Type 1 diabetes mellitus without complications; E78.00 Pure hypercholesterolemia, unspecified; E78.5 Hyperlipidemia, unspecified; J44.9 Chronic obstructive pulmonary disease, unspecified; K29.70 Gastritis, unspecified, without bleeding; F32.9 Major depressive disorder, single episode, unspecified; H40.9 Unspecified glaucoma; F41.9 Anxiety disorder, unspecified; M19.90 Unspecified osteoarthritis, unspecified site; R32 Unspecified urinary incontinence; Z88.1 Allergy status to other antibiotic agents; Z79.4 Long term (current) use of insulin; Z87.440 Personal history of urinary (tract) infections
CPT/HCPCS: 36415; 80048; 82948; 85027; 96365; 96367; 96375; 96416; G0378; J1100; J1200; J2405; J7040; J9310

== ENCOUNTER 2017-12-18 08:14 | Observation (INO) | payer MEDICARE, MEDICAID ==
[2017-12-18] MEDS ORDERED: Benzocaine/Menthol (Cepacol) Lozenge PO PRN (08:26)
[2017-12-18] MEDS ORDERED: Acetaminophen 650mg/20.3ml solution UD PO ONE (08:36)
[2017-12-18] MEDS ORDERED: SODIUM CHLORIDE 0.9% IV ONE ×2 (08:39→09:30)
[2017-12-18] MEDS ORDERED: RITUXIMAB IV ONE ×2 (08:39→09:30)
[2017-12-18] MEDS ORDERED: Dexamethasone 10 MG in Sodium Chloride 0.9% 50 ML IVPB ONE (09:15)
[2017-12-18] MEDS: Pantoprazole 20 mg EC Tab PO SCH (09:46)
--- NOTE | 2017-12-18 09:48 | CP.PCM.CON ---
History of Present Illness - History of Present Illness History of Present Illness: This is a 82 yrs old female who was diagnosed to have a Devics disease about 5 yrs ago. She was started on Rituxan and has now been stable.She gets the rituxan every 2 months qand tolerates it well. She has multiple comorbid problems, mainly DM, HTN, hyperlipidemia, also GERD. Does not smoke and does not drink alcohol. Past Patient History - Tetanus Immunizations Tetanus Immunization: Unknown - Past Medical History & Family History Past Medical History?: Yes - Past Social History Smoking Status: Never Smoked - CARDIAC Hx Cardiac Disorders: Yes Hx Hypercholesterolemia: Yes Hx Hypertension: Yes - PULMONARY Hx Respiratory Disorders: No - NEUROLOGICAL Hx Neurological Disorder: Yes Hx Dementia: Yes Hx Multiple Sclerosis: Yes Other/Comment: Devic's Disease - HEENT Hx HEENT Problems: Yes Hx Glaucoma: Yes (left eye) - RENAL Hx Chronic Kidney Disease: No - ENDOCRINE/METABOLIC Hx Endocrine Disorders: Yes Hx Diabetes Mellitus Type 1: Yes Hx Hypothyroidism: Yes - HEMATOLOGICAL/ONCOLOGICAL Hx Blood Disorders: Yes Hx Chemotherapy: Yes (for multiple sclerosis) Hx Shingles: Yes - INTEGUMENTARY Hx Dermatological Problems: No - MUSCULOSKELETAL/RHEUMATOLOGICAL Hx Musculoskeletal Disorders: Yes Hx Arthritis: Yes Hx Falls: No - GASTROINTESTINAL Hx Gastrointestinal Disorders: Yes Hx Gastritis: Yes - GENITOURINARY/GYNECOLOGICAL Hx Genitourinary Disorders: Yes Hx Incontinence: Yes Hx Urinary Tract Infection: Yes Other/Comment: urosepsis - PSYCHIATRIC Hx Psychophysiologic Disorder: Yes Hx Anxiety: Yes Hx Depression: Yes Hx Substance Use: No - SURGICAL HISTORY Hx Surgeries: No - ANESTHESIA Hx Anesthesia: No Hx Anesthesia Reactions: No Hx Malignant Hyperthermia: No Meds Allergies/Adverse Reactions: Allergies Allergy/AdvReac Type Severity Reaction Status Date / Time ciprofloxacin [From Cipro] Allergy RASH Verified 10/23/17 08:24 ciprofloxacin HCl Allergy RASH Verified 10/23/17 08:24 [From Cipro] - Medications Medications: Current Medications Acetaminophen (Tylenol 325mg Tab) 650 mg PO Q4 PRN PRN Reason: Pain, Mild (1-3) Ascorbic Acid (Vitamin C 500 Mg Tab) 500 mg PO DAILY ADY Atorvastatin Calcium (Lipitor) 10 mg PO HS ADY Benzocaine/Menthol (Cepacol Sore Throat) 1 rosalie PO Q6 PRN PRN Reason: Sore Throat Bisacodyl (Dulcolax) 10 mg CA Q3D [facility] Calcium/Vitamin D (Oyster Shell Calcium/Vitamin D 500 Mg-200 Iu) 1 tab PO QPM [facility] Dexamethasone (Decadron Inj) 10 mg IV ONCE ONE Stop: 12/18/17 10:01 Diphenhydramine HCl (Benadryl) 25 mg IVP ONCE ONE Stop: 12/18/17 10:01 Docusate Sodium (Colace) 200 mg PO HS [facility] Ezetimibe (Zetia) 10 mg PO HS [facility] Enalapril Maleate (Vasotec) 10 mg PO DAILY [facility] Fentanyl (Duragesic) 1 patch TD Q3D ADY PRN Reason: Protocol Fluoxetine HCl (Prozac) 10 mg PO HS [facility] Gabapentin (Neurontin) 300 mg PO TID [facility] Home Med (Linagliptin [Tradjenta]) 5 mg PO DAILY [facility] Home Med (Lipase/Protease/Amylase [Creon Dr 24,000 Units Capsule]) 2 cap PO TID [facility] Home Med (Propylene Glycol/Peg 400 [Systane Liquid Gel Eye Drops]) 1 drop OU TID [facility] Home Med (Simethicone [Gas Relief]) 125 mg PO TID [facility] Sodium Chloride (Sodium Chloride 0.9%) 500 mls @ 50 mls/hr IV .Q10H [facility] Ondansetron HCl 16 mg/ Sodium (Chloride) 58 mls @ 116 mls/hr IVPB ONCE ONE Stop: 12/18/17 10:29 Rituximab 585 mg/ Sodium (Chloride) 308.5 mls @ 25.708 mls/hr IV ONCE ONE PRN Reason: As Directed Stop: 12/18/17 21:29 Insulin Human Lispro (Humalog) 4 units SC DIN [facility] Lactulose (Enulose) 20 gm PO HS [facility] Levothyroxine Sodium (Synthroid) 75 mcg PO DAILY@0630 [facility] Magnesium Hydroxide (Milk Of Magnesia) 30 ml PO MWF [facility] Multivitamins/Minerals (Therapeutic-M Tab) 1 tab PO DAILY [facility] [id number] Ethyl Esters (Lovaza) 2 gm PO BID [facility] Ondansetron HCl (Zofran Tab) 8 mg PO Q8H PRN PRN Reason: Nausea/Vomiting Pantoprazole Sodium (Protonix Ec Tab) 20 mg PO DAILY [facility] Polyethylene Glycol (Miralax) 17 gm PO DAILY [facility] Prochlorperazine (Compazine Rectal Supp) 25 mg CA Q12H PRN PRN Reason: Nausea/Vomiting Physical Exam - Additional Findings Additional findings: Physical Exam; alert. well oriented in no acute distress. neck; supple, no adenopathy Chest; clear, no rales or rhonchi Heart; RSR, no murmur Abd; Soft,no mass, no h/s megaly Assessment & Plan - Assessment and Plan (Free Text) Assessment: Impression; Devic's disease Plan: Plan; Continue Rituxan q 2 months. , When she got the Rituxan she had an allergic reaction but when she got it over 12 hrs she has been fine - Date & Time Date: 12/18/17 Time: 09:59
[2017-12-18] MEDS ORDERED: Dexamethasone 4 mg/1 ml IV ONE (10:00)
[2017-12-18] MEDS ORDERED: DiphenhydrAMINE 50 mg/ml Inj IVP ONE (10:00)
[2017-12-18] MEDS: Levothyroxine 75 MCG TAB PO SCH (10:30)
[2017-12-18] MEDS: Omega-3-Acid Ethyl Esters 1 GM Cap PO SCH ×2 (10:30→17:39)
[2017-12-18] MEDS: Multivitamin With Minerals Tab PO SCH (11:27)
[2017-12-18] MEDS: POLYETHYLENE GLYCOL 3350 17 GM/Dose PACKET PO SCH (11:38)
[2017-12-18] MEDS: Simethicone 80 mg Chewtab PO SCH ×3 (11:57→17:38)
[2017-12-18] MEDS: Artificial Tears Opht Soln OU SCH ×3 (14:26→17:27)
--- NOTE | 2017-12-18 15:06 | CP.PCM.HP ---
History of Present Illness - History of Present Illness History of Present Illness: 82 y/o F, resident at [facility], brought by EMS to [facility], with scheduled admission to receive Rituxan infusion (every 2 months), for Tx of Devic's Disease, onset about 5 yrs ago. Aggravated symptoms: Generalized pain, moderate intensity, alleviated with medication. Pt denied: Fever, chills, n/v/d, abdominal pain, dizziness, SOB, cough, CP, SOB , sick contact. PMHx: Devic's Disease, DMII, Dyslipidemia, Chronic Paraplegia, Hypothyroidism, Gastritis, Constipation, Chronic depression, Urinary Incontinence, Mild dementia , Glaucoma L eye, Hx Shingles and UTI. Present on Admission - Present on Admission Any Indicators Present on Admission: No Review of Systems - Constitutional Constitutional: Weakness - EENT Eyes: Requires Corrective Lenses, Other (Gaucoma L eye) Ears: Other (negative) Nose/Mouth/Throat: Other (negative) - Cardiovascular Cardiovascular: Other (negative) - Respiratory Respiratory: Other (negative) - Gastrointestinal Gastrointestinal: Constipation, Heartburn - Genitourinary Genitourinary: Urinary Incontinence - Musculoskeletal Musculoskeletal: Arthralgias, Back Pain - Integumentary Integumentary: Other (negative) - Neurological Neurological: Weakness - Psychiatric Psychiatric: Depression - Endocrine Endocrine: Other (negative) - Hematologic/Lymphatic Hematologic: Other (negative) Past Patient History - Tetanus Immunizations Tetanus Immunization: Unknown - Past Medical History & Family History Past Medical History?: Yes Pertinent Family History: Unknown - Past Social History Smoking Status: Never Smoked Alcohol: None Drugs: Denies Home Situation {Lives}: Senior Living - CARDIAC Hx Cardiac Disorders: Yes Hx Hypercholesterolemia: Yes Hx Hypertension: Yes - PULMONARY Hx Respiratory Disorders: No - NEUROLOGICAL Hx Neurological Disorder: Yes Hx Dementia: Yes Hx Multiple Sclerosis: Yes Other/Comment: Devic's Disease - HEENT Hx HEENT Problems: Yes Hx Glaucoma: Yes (left eye) - RENAL Hx Chronic Kidney Disease: No - ENDOCRINE/METABOLIC Hx Endocrine Disorders: Yes Hx Diabetes Mellitus Type 1: Yes Hx Hypothyroidism: Yes - HEMATOLOGICAL/ONCOLOGICAL Hx Blood Disorders: Yes Hx Chemotherapy: Yes (for multiple sclerosis) Hx Shingles: Yes - INTEGUMENTARY Hx Dermatological Problems: No - MUSCULOSKELETAL/RHEUMATOLOGICAL Hx Musculoskeletal Disorders: Yes Hx Arthritis: Yes Hx Falls: No - GASTROINTESTINAL Hx Gastrointestinal Disorders: Yes Hx Gastritis: Yes - GENITOURINARY/GYNECOLOGICAL Hx Genitourinary Disorders: Yes Hx Incontinence: Yes Hx Urinary Tract Infection: Yes Other/Comment: urosepsis - PSYCHIATRIC Hx Psychophysiologic Disorder: Yes Hx Anxiety: Yes Hx Depression: Yes Hx Substance Use: No - SURGICAL HISTORY Hx Surgeries: No - ANESTHESIA Hx Anesthesia: No Hx Anesthesia Reactions: No Hx Malignant Hyperthermia: No Meds Allergies/Adverse Reactions: Allergies Allergy/AdvReac Type Severity Reaction Status Date / Time ciprofloxacin [From Cipro] Allergy RASH Verified 10/23/17 08:24 ciprofloxacin HCl Allergy RASH Verified 10/23/17 08:24 [From Cipro] Physical Exam - Constitutional Appears: No Acute Distress, Chronically Ill - Head Exam Head Exam: NORMAL INSPECTION - Eye Exam Eye Exam: PERRL - ENT Exam ENT Exam: Normal Exam - Neck Exam Neck exam: Positive for: Normal Inspection - Respiratory Exam Respiratory Exam: NORMAL BREATHING PATTERN - Cardiovascular Exam Cardiovascular Exam: REGULAR RHYTHM - GI/Abdominal Exam GI & Abdominal Exam: Normal Bowel Sounds, Soft - Extremities Exam Additional comments: Paralysis lower extremities, no sensation in lower extremities. - Neurological Exam Neurological exam: Alert, Oriented x3 Additional comments: R-L foot droop. Sensory deficit lower extremities. - Psychiatric Exam Psychiatric exam: Depressed - Skin Skin Exam: Warm Results - Vital Signs Recent Vital Signs: reviewed J.P. - Labs Labs: reviewed J.P. 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 Hematology consult appreciated. - Date & Time Date: 12/18/17 Time: 13:20
[2017-12-18] MEDS: Sodium Chloride 0.9% 500 ML IV SCH (15:45)
[2017-12-18] MEDS ORDERED: Insulin Lispro (humaLOG) 100 Units/ml Inj SC SCH (17:00)
[2017-12-18 17:13] VITALS: RESP 20
[2017-12-18] MEDS ORDERED: Calcium-Vit D 500 mg-200 Units Tab UD PO SCH (18:00)
[2017-12-19] MEDS: Levothyroxine 75 MCG TAB PO SCH (05:40)
[2017-12-19] MEDS: Sodium Chloride 0.9% 500 ML IV SCH (05:43)
[2017-12-19] MEDS ORDERED: Magnesium Hydroxide Susp 30 ml UD PO SCH (09:00)
--- NOTE | 2017-12-19 09:14 | CP.PCM.PN ---
Subjective - Date & Time of Evaluation Date of Evaluation: 12/19/17 Time of Evaluation: 09:11 - Subjective Subjective: Pt received rituxan by infusion which finished this morning. she tolerated the chemotherapy well, and will be discharged today. Objective - Vital Signs/Intake and Output Vital Signs (last 24 hours): Temp Pulse Resp BP Pulse Ox 98.1 F 49 L 20 160/72 H 95 12/19/17 00:01 12/19/17 08:31 12/19/17 00:01 12/19/17 08:31 12/19/17 00:01 - Medications Medications: Current Medications Acetaminophen (Tylenol 325mg Tab) 650 mg PO Q4 PRN PRN Reason: Pain, Mild (1-3) Artificial Tears (Artificial Tears) 1 drop OU TID [facility] Last Admin: 12/18/17 17:27 Dose: Not Given Ascorbic Acid (Vitamin C 500 Mg Tab) 500 mg PO DAILY [facility] Last Admin: 12/18/17 11:32 Dose: 500 mg Atorvastatin Calcium (Lipitor) 10 mg PO [facility] Last Admin: 12/18/17 21:52 Dose: 10 mg Benzocaine/Menthol (Cepacol Sore Throat) 1 rosalie PO Q6 PRN PRN Reason: Sore Throat Bisacodyl (Dulcolax) 10 mg [place] Q3D [facility] Last Admin: 12/18/17 11:46 Dose: Not Given Calcium/Vitamin D (Oyster Shell Calcium/Vitamin D 500 Mg-200 Iu) 1 tab PO QPM [facility] Last Admin: 12/18/17 17:39 Dose: 1 tab Docusate Sodium (Colace) 200 mg PO [facility] Last Admin: 12/18/17 21:54 Dose: 200 mg Ezetimibe (Zetia) 10 mg PO [facility] Last Admin: 12/18/17 21:53 Dose: 10 mg Enalapril Maleate (Vasotec) 10 mg PO DAILY [facility] Last Admin: 12/18/17 11:32 Dose: 10 mg Fentanyl (Duragesic) 1 patch TD Q3D [facility] PRN Reason: Protocol Last Admin: 12/18/17 11:52 Dose: 1 patch Fluoxetine HCl (Prozac) 10 mg PO [facility] Last Admin: 12/18/17 21:53 Dose: 10 mg Gabapentin (Neurontin) 300 mg PO TID [facility] Last Admin: 12/18/17 17:36 Dose: 300 mg Home Med (Lipase/Protease/Amylase [Creon Dr 24,000 Units Capsule]) 2 cap PO TID [facility] Sodium Chloride (Sodium Chloride 0.9%) 500 mls @ 50 mls/hr IV .Q10H [facility] Last Admin: 12/19/17 05:43 Dose: 50 mls/hr Insulin Human Lispro (Humalog) 4 units SC DIN [facility] Last Admin: 12/18/17 17:42 Dose: 4 units Lactulose (Enulose) 20 gm PO HS [facility] Last Admin: 12/18/17 21:52 Dose: 20 gm Levothyroxine Sodium (Synthroid) 75 mcg PO DAILY@0630 [facility] Last Admin: 12/19/17 05:40 Dose: 75 mcg Magnesium Hydroxide (Milk Of Magnesia) 30 ml PO MWF [facility] Multivitamins/Minerals (Therapeutic-M Tab) 1 tab PO DAILY [facility] Last Admin: 12/18/17 11:27 Dose: 1 tab [id number] Ethyl Esters (Lovaza) 2 gm PO BID [facility] Last Admin: 12/18/17 17:39 Dose: 2 gm Ondansetron HCl (Zofran Tab) 8 mg PO Q8H PRN PRN Reason: Nausea/Vomiting Pantoprazole Sodium (Protonix Ec Tab) 20 mg PO DAILY [facility] Last Admin: 12/18/17 09:46 Dose: Not Given Polyethylene Glycol (Miralax) 17 gm PO DAILY [facility] Last Admin: 12/18/17 11:38 Dose: 17 gm Prochlorperazine (Compazine Rectal Supp) 25 mg [place] Q12H PRN PRN Reason: Nausea/Vomiting Simethicone (Mylicon Chew Tab) 80 mg PO TID [facility] Last Admin: 12/18/17 17:38 Dose: 80 mg Sitagliptin Phosphate (Januvia) 50 mg PO DAILY [facility] Last Admin: 12/18/17 10:29 Dose: 50 mg
[2017-12-19] MEDS: Artificial Tears Opht Soln OU SCH ×2 (11:05→14:00)
[2017-12-19] MEDS: POLYETHYLENE GLYCOL 3350 17 GM/Dose PACKET PO SCH (11:08)
[2017-12-19] MEDS: Omega-3-Acid Ethyl Esters 1 GM Cap PO SCH (11:08)
[2017-12-19] MEDS: Simethicone 80 mg Chewtab PO SCH ×2 (11:09→14:01)
[2017-12-19] MEDS: Pantoprazole 20 mg EC Tab PO SCH (11:10)
[2017-12-19] MEDS: Multivitamin With Minerals Tab PO SCH (11:11)
--- NOTE | 2017-12-19 13:33 | CP.PCM.DIS ---
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
[2017-12-19 16:25] VITALS: BP 119/52; PULSE 52; TEMP 99; O2SAT 97
== END 2017-12-19 15:30 ==
LOC: INTOOBSV 08:19 → H.MEDSURG1 08:19
PROVIDERS: ADMIT Internal Medicine Pulmonary Disease; ATTEND Internal Medicine Pulmonary Disease
DX: G36.0 Neuromyelitis optica [Devic] (principal); E11.9 Type 2 diabetes mellitus without complications; E78.5 Hyperlipidemia, unspecified; G82.20 Paraplegia, unspecified; E03.9 Hypothyroidism, unspecified; K29.50 Unspecified chronic gastritis without bleeding; F32.9 Major depressive disorder, single episode, unspecified; R32 Unspecified urinary incontinence; F03.90 Unspecified dementia, unspecified severity, without behavioral disturbance, psychotic disturbance, mood disturbance, and anxiety; H40.9 Unspecified glaucoma; G35 Multiple sclerosis; K21.9 Gastro-esophageal reflux disease without esophagitis; I10 Essential (primary) hypertension; Z88.3 Allergy status to other anti-infective agents; K59.09 Other constipation; E78.00 Pure hypercholesterolemia, unspecified
CPT/HCPCS: 96367; 96374; 96416; G0378; J1100; J1200; J2405; J7040; J9310

== ENCOUNTER 2018-02-13 09:48 | Observation (INO) | payer MEDICARE, MEDICAID ==
[2018-02-13] MEDS ORDERED: Dexamethasone 10 MG in Sodium Chloride 0.9% 50 ML IVPB ONE (10:30)
[2018-02-13] MEDS ORDERED: Famotidine 20mg/50ml Premix IVPB STA (11:45)
[2018-02-13] MEDS: Sodium Chloride 0.9% 500 ML IV SCH ×2 (11:47→23:00)
[2018-02-13] MEDS ORDERED: Famotidine 20mg/50ml 20 MG/50 ML BAG IVPB ONE (12:00)
[2018-02-13] MEDS ORDERED: DIPHENHYDRAMINE IVPB ONE (12:30)
[2018-02-13] MEDS ORDERED: RITUXIMAB IV ONE (12:30)
[2018-02-13] MEDS ORDERED: SODIUM CHLORIDE 0.9% IV ONE (12:30)
[2018-02-13] MEDS ORDERED: SODIUM CHLORIDE 0.9% IVPB ONE (12:30)
[2018-02-13 12:31] LABS: INR 1.1 (0.9-1.2); PARTIAL THROMBOPLASTIN TIME 31.9 Seconds (25.6-37.1); PROTHROMBIN TIME 11.8 Seconds (9.8-13.1)
[2018-02-13 12:33] LABS: BASO # 0.1 K/uL (0.0-0.2); BASO % 1.1 % (0.0-2.0); EOS # 0.2 K/uL (0.0-0.7); EOS % 3.9 % (0.0-4.0); HEMOGLOBIN 10.8 g/dL (12.0-16.0); LYMPH # 1.3 K/uL (1.0-4.3); LYMPH % 26.7 % (20.0-40.0); MEAN CELL VOLUME 98.1 fl (81.0-99.0); MEAN CORPUSCULAR HEMOGLOBIN 32.8 pg (27.0-31.0); MEAN CORPUSCULAR HGB CONC 33.4 g/dL (33.0-37.0); MEAN PLATELET VOLUME 9.2 fl (7.2-11.7); MONO # 0.6 K/uL (0.0-0.8); NEUT # 2.9 K/uL (1.8-7.0); NEUT % 57.3 % (50.0-75.0); RBC 3.3 Mil/uL (3.80-5.20); RED CELL DISTRIBUTION WIDTH 13.7 % (11.5-14.5)
[2018-02-13 12:50] LABS: ALB/GLOB RATIO 1.3 (1.0-2.1); ALBUMIN 3.6 g/dL (3.5-5.0); ALT/SGPT 39 U/L (9-52); AST/SGOT 29 U/L (14-36); BLOOD UREA NITROGEN 25 mg/dl (7-17); CALCIUM 8.4 mg/dL (8.4-10.2); GFR AFRICAN-AMERICAN > 60; GFR NON-AFRICAN AMERICAN 53
--- NOTE | 2018-02-13 15:53 | CP.PCM.CON ---
History of Present Illness - History of Present Illness History of Present Illness: This is a 82 yrs old female who is here for rituxan infusion for devics disease She has been getting rituximab every 2 months for the last 4yrs and her condition has been stable.She had a reeaction when the rituximab was given in the regular protocol,but when given over 123 hrs she has done well. She has to be admitted for the infusion She also has a h/ohtn and DMtype 2. Past Patient History - Tetanus Immunizations Tetanus Immunization: Unknown - Past Medical History & Family History Past Medical History?: Yes - Past Social History Smoking Status: Never Smoked - CARDIAC Hx Cardiac Disorders: Yes Hx Hypercholesterolemia: Yes Hx Hypertension: Yes - PULMONARY Hx Respiratory Disorders: No - NEUROLOGICAL Hx Neurological Disorder: Yes Hx Dementia: Yes Hx Multiple Sclerosis: Yes Other/Comment: Devic's Disease - HEENT Hx HEENT Problems: Yes Hx Glaucoma: Yes (left eye) - RENAL Hx Chronic Kidney Disease: No - ENDOCRINE/METABOLIC Hx Endocrine Disorders: Yes Hx Diabetes Mellitus Type 1: Yes Hx Hypothyroidism: Yes - HEMATOLOGICAL/ONCOLOGICAL Hx Blood Disorders: Yes Hx Chemotherapy: Yes (for multiple sclerosis) Hx Shingles: Yes - INTEGUMENTARY Hx Dermatological Problems: No - MUSCULOSKELETAL/RHEUMATOLOGICAL Hx Musculoskeletal Disorders: Yes Hx Arthritis: Yes Hx Falls: No - GASTROINTESTINAL Hx Gastrointestinal Disorders: Yes Hx Gastritis: Yes - GENITOURINARY/GYNECOLOGICAL Hx Genitourinary Disorders: Yes Hx Incontinence: Yes Hx Urinary Tract Infection: Yes Other/Comment: urosepsis - PSYCHIATRIC Hx Psychophysiologic Disorder: Yes Hx Anxiety: Yes Hx Depression: Yes Hx Substance Use: No - SURGICAL HISTORY Hx Surgeries: No - ANESTHESIA Hx Anesthesia: No Hx Anesthesia Reactions: No Hx Malignant Hyperthermia: No Meds Allergies/Adverse Reactions: Allergies Allergy/AdvReac Type Severity Reaction Status Date / Time ciprofloxacin [From Cipro] Allergy RASH Verified 10/23/17 08:24 ciprofloxacin HCl Allergy RASH Verified 10/23/17 08:24 [From Cipro] - Medications Medications: Current Medications Sodium Chloride (Sodium Chloride 0.9%) 500 mls @ 80 mls/hr IV .Q6H15M ADY Last Admin: 02/13/18 11:47 Dose: 80 mls/hr Rituximab 585 mg/ Sodium (Chloride) 308.5 mls @ 25.708 mls/hr IV ONCE ONE Stop: 02/14/18 00:29 Last Admin: 02/13/18 13:56 Dose: 25.708 mls/hr Insulin Human Regular (Humulin R) 0 units SC ACHS ADY PRN Reason: Protocol Physical Exam - Additional Findings Additional findings: Physical exam; Alert,well oriented in no acute distress neck; supple, no adenopathy Chest; Clear, no rales or rhonchi heart; RSR, no murmur Abd; soft, no mass no h/s megaly Results - Vital Signs Recent Vital Signs: Last Vital Signs Temp 97.7 F 02/13/18 13:39 Pulse 51 L 02/13/18 13:39 Resp 17 02/13/18 11:35 BP 118/50 L 02/13/18 13:41 Pulse Ox 95 02/13/18 13:39 - Labs Result Diagrams: 02/13/18 12:05 02/13/18 12:05 Labs: Laboratory Results - last 24 hr 02/13/18 02/13/18 02/13/18 11:51 12:05 12:05 WBC 5.0 RBC 3.30 L Hgb 10.8 L Hct 32.4 L MCV 98.1 MCH 32.8 H MCHC 33.4 RDW 13.7 Plt Count 145 MPV 9.2 Neut % (Auto) 57.3 Lymph % (Auto) 26.7 [place] % (Auto) 11.0 H Eos % (Auto) 3.9 Baso % (Auto) 1.1 Neut # (Auto) 2.9 Lymph # (Auto) 1.3 [place] # (Auto) 0.6 Eos # (Auto) 0.2 Baso # (Auto) 0.1 PT 11.8 INR 1.1 APTT 31.9 Sodium Potassium Chloride Carbon Dioxide Anion Gap BUN Creatinine Est GFR ( Amer) Est GFR (Non-Af Amer) POC Glucose (mg/dL) 103 Random Glucose Calcium Total Bilirubin AST ALT Alkaline Phosphatase Total Protein Albumin Globulin Albumin/Globulin Ratio 02/13/18 12:05 WBC RBC Hgb Hct MCV MCH MCHC RDW Plt Count MPV Neut % (Auto) Lymph % (Auto) [place] % (Auto) Eos % (Auto) Baso % (Auto) Neut # (Auto) Lymph # (Auto) [place] # (Auto) Eos # (Auto) Baso # (Auto) PT INR APTT Sodium 142 Potassium 4.9 Chloride 106 Carbon Dioxide 25 Anion Gap 16 BUN 25 H Creatinine 1.0 Est GFR ( Amer) > 60 Est GFR (Non-Af Amer) 53 POC Glucose (mg/dL) Random Glucose 104 Calcium 8.4 Total Bilirubin 0.5 AST 29 ALT 39 Alkaline Phosphatase 67 Total Protein 6.4 Albumin 3.6 Globulin 2.8 Albumin/Globulin Ratio 1.3 Assessment & Plan - Assessment and Plan (Free Text) Assessment: Impression; Devic's disease HTN DM Plan: plan; Will give rituxan as a 12 hr infusion., and then discharge. - Date & Time Date: 02/13/18 Time: 15:57
--- NOTE | 2018-02-13 15:58 | CP.PCM.HP ---
History of Present Illness - History of Present Illness History of Present Illness: 82 y/o F, with multiple chronic medical conditions, including Devic's disease , resident at [facility], brought via EMS to [facility], today 02/13/18 for Rituximab infusion PT denied: Fever, chills, n/v/d, abdominal pain, urinary symptoms, dizziness, CP, palpitations, SOB, cough, sick contact. Present on Admission - Present on Admission Any Indicators Present on Admission: No Review of Systems - Constitutional Constitutional: Weakness - EENT Eyes: Requires Corrective Lenses Ears: Other (negative) Nose/Mouth/Throat: Other (negative) - Cardiovascular Cardiovascular: Other (negative) - Respiratory Respiratory: Other (negative) - Gastrointestinal Gastrointestinal: Constipation - Genitourinary Genitourinary: Other (negative) - Musculoskeletal Musculoskeletal: Arthralgias - Integumentary Integumentary: Other (negative) - Neurological Neurological: Other (negative) Additional comments: paraplegia - Psychiatric Psychiatric: Anxiety, Depression - Endocrine Endocrine: Other (negative) - Hematologic/Lymphatic Hematologic: Other (negative) Past Patient History - Tetanus Immunizations Tetanus Immunization: Unknown - Past Medical History & Family History Past Medical History?: Yes Pertinent Family History: Unknown - Past Social History Smoking Status: Never Smoked Alcohol: None Drugs: Denies Home Situation {Lives}: Group Home - CARDIAC Hx Cardiac Disorders: Yes Hx Hypercholesterolemia: Yes Hx Hypertension: Yes - PULMONARY Hx Respiratory Disorders: No - NEUROLOGICAL Hx Neurological Disorder: Yes Hx Multiple Sclerosis: Yes Other/Comment: Devic's Disease - HEENT Hx HEENT Problems: Yes Hx Glaucoma: Yes (left eye) - RENAL Hx Chronic Kidney Disease: No - ENDOCRINE/METABOLIC Hx Endocrine Disorders: Yes Hx Diabetes Mellitus Type 1: Yes Hx Hypothyroidism: Yes - HEMATOLOGICAL/ONCOLOGICAL Hx Blood Disorders: Yes Hx Chemotherapy: Yes (for multiple sclerosis) Hx Shingles: Yes - INTEGUMENTARY Hx Dermatological Problems: No - MUSCULOSKELETAL/RHEUMATOLOGICAL Hx Musculoskeletal Disorders: Yes Hx Arthritis: Yes Hx Falls: No - GASTROINTESTINAL Hx Gastrointestinal Disorders: Yes Hx Constipation: Yes Hx Gastritis: Yes - GENITOURINARY/GYNECOLOGICAL Hx Genitourinary Disorders: Yes Hx Incontinence: Yes Hx Urinary Tract Infection: Yes Other/Comment: urosepsis - PSYCHIATRIC Hx Psychophysiologic Disorder: Yes Hx Anxiety: Yes Hx Depression: Yes Hx Substance Use: No - SURGICAL HISTORY Hx Surgeries: No - ANESTHESIA Hx Anesthesia: No Hx Anesthesia Reactions: No Hx Malignant Hyperthermia: No Meds Allergies/Adverse Reactions: Allergies Allergy/AdvReac Type Severity Reaction Status Date / Time ciprofloxacin [From Cipro] Allergy RASH Verified 10/23/17 08:24 ciprofloxacin HCl Allergy RASH Verified 10/23/17 08:24 [From Cipro] Physical Exam - Constitutional Appears: No Acute Distress, Chronically Ill - Head Exam Head Exam: NORMAL INSPECTION - Eye Exam Eye Exam: PERRL - ENT Exam ENT Exam: Normal Exam - Neck Exam Neck exam: Positive for: Normal Inspection - Respiratory Exam Respiratory Exam: Clear to Auscultation Bilateral - Cardiovascular Exam Cardiovascular Exam: REGULAR RHYTHM - GI/Abdominal Exam GI & Abdominal Exam: Normal Bowel Sounds, Soft - Extremities Exam Additional comments: No movements or sensation in lower extremities. R-L foot droop , tenderness R L shoulders - Back Exam Back exam: NORMAL INSPECTION - Neurological Exam Neurological exam: Alert, Oriented x3 Additional comments: A O x 3 , Paraplegia, motor sensory deficit lower extremities. - Psychiatric Exam Psychiatric exam: Anxious, Depressed - Skin Skin Exam: Warm Results - Vital Signs Recent Vital Signs: Last Vital Signs Temp 97.7 F 02/13/18 13:39 Pulse 51 L 02/13/18 13:39 Resp 17 02/13/18 11:35 BP 118/50 L 02/13/18 13:41 Pulse Ox 95 02/13/18 13:39 reviewed J.PDash - Labs Result Diagrams: 02/13/18 12:05 02/13/18 12:05 Labs: Laboratory Results - last 24 hr 02/13/18 02/13/18 02/13/18 11:51 12:05 12:05 WBC 5.0 RBC 3.30 L Hgb 10.8 L Hct 32.4 L MCV 98.1 MCH 32.8 H MCHC 33.4 RDW 13.7 Plt Count 145 MPV 9.2 Neut % (Auto) 57.3 Lymph % (Auto) 26.7 [place] % (Auto) 11.0 H Eos % (Auto) 3.9 Baso % (Auto) 1.1 Neut # (Auto) 2.9 Lymph # (Auto) 1.3 [place] # (Auto) 0.6 Eos # (Auto) 0.2 Baso # (Auto) 0.1 PT 11.8 INR 1.1 APTT 31.9 Sodium Potassium Chloride Carbon Dioxide Anion Gap BUN Creatinine Est GFR ( Amer) Est GFR (Non-Af Amer) POC Glucose (mg/dL) 103 Random Glucose Calcium Total Bilirubin AST ALT Alkaline Phosphatase Total Protein Albumin Globulin Albumin/Globulin Ratio 02/13/18 02/13/18 12:05 15:47 WBC RBC Hgb Hct MCV MCH MCHC RDW Plt Count MPV Neut % (Auto) Lymph % (Auto) [place] % (Auto) Eos % (Auto) Baso % (Auto) Neut # (Auto) Lymph # (Auto) [place] # (Auto) Eos # (Auto) Baso # (Auto) PT INR APTT Sodium 142 Potassium 4.9 Chloride 106 Carbon Dioxide 25 Anion Gap 16 BUN 25 H Creatinine 1.0 Est GFR ( Amer) > 60 Est GFR (Non-Af Amer) 53 POC Glucose (mg/dL) 198 H Random Glucose 104 Calcium 8.4 Total Bilirubin 0.5 AST 29 ALT 39 Alkaline Phosphatase 67 Total Protein 6.4 Albumin 3.6 Globulin 2.8 Albumin/Globulin Ratio 1.3 reviewed J.P. Assessment & Plan (1) Devic's disease Status: Chronic Priority: High (2) Chronic pain Status: Chronic Priority: High (3) Diabetes mellitus Status: Chronic Priority: Medium (4) Chronic paraplegia Status: Chronic Priority: High (5) Constipation Status: Chronic - Assessment and Plan (Free Text) Plan: Rituximab infusion , Benadryl , Dexamethasone , Zofran , Insulin and rest of Tx. - Date & Time Date: 02/13/18 Time: 13:00
[2018-02-13] MEDS: Insulin Regular 100 units/ml SC SCH ×2 (17:18→22:30)
[2018-02-14] MEDS: Insulin Regular 100 units/ml SC SCH ×3 (07:29→12:06)
[2018-02-14 08:06] VITALS: BP 138/49; PULSE 74; RESP 20; TEMP 97.8; O2SAT 94
[2018-02-14] MEDS: Sodium Chloride 0.9% 500 ML IV SCH ×2 (08:52→12:06)
[2018-02-14] MEDS ORDERED: Pantoprazole 20 mg EC Tab PO SCH (10:00)
[2018-02-14] MEDS ORDERED: Levothyroxine 75 MCG TAB PO SCH (10:00)
--- NOTE | 2018-02-14 10:20 | CP.PCM.PN ---
Subjective - Date & Time of Evaluation Date of Evaluation: 02/14/18 Time of Evaluation: 10:18 - Subjective Subjective: Pt did well with the rituxan. No side effects were seen. She will be discharged today , to return in 2 months for the next dose of rituxan Objective - Vital Signs/Intake and Output Vital Signs (last 24 hours): Temp Pulse Resp BP Pulse Ox 97.8 F 74 20 138/49 L 94 L 02/14/18 08:05 02/14/18 08:05 02/14/18 08:05 02/14/18 08:05 02/14/18 08:05 - Medications Medications: Current Medications Ascorbic Acid (Vitamin C 500 Mg Tab) 500 mg PO DAILY ADY Enalapril Maleate (Vasotec) 10 mg PO DAILY ADY Gabapentin (Neurontin) 300 mg PO TID ADY Sodium Chloride (Sodium Chloride 0.9%) 500 mls @ 80 mls/hr IV .Q6H15M ADY Last Admin: 02/14/18 08:52 Dose: Not Given Insulin Human Regular (Humulin R) 0 units SC ACHS ADY PRN Reason: Protocol Last Admin: 02/14/18 07:29 Dose: Not Given Levothyroxine Sodium (Synthroid) 75 mcg PO DAILY ADY Pantoprazole Sodium (Protonix Ec Tab) 20 mg PO DAILY ADY - Labs Labs: 02/13/18 12:05 02/13/18 12:05 PT 11.8 Seconds (9.8-13.1) 02/13/18 12:05 INR 1.1 (0.9-1.2) 02/13/18 12:05 APTT 31.9 Seconds (25.6-37.1) 02/13/18 12:05
--- NOTE | 2018-02-14 12:26 | CP.PCM.DIS ---
Provider - Provider Date of Admission: 02/13/18 10:01 Attending physician: Jameson Chiu MD Diagnosis - Discharge Diagnosis (1) Devic's disease Status: Chronic Priority: High (2) Chronic pain Status: Chronic Priority: High (3) Diabetes mellitus Status: Chronic Priority: Medium (4) Chronic paraplegia Status: Chronic Priority: High (5) Constipation Status: Chronic Hospital Course - Lab Results Lab Results: Most Recent Lab Values WBC 5.0 K/uL (4.8-10.8) 02/13/18 12:05 RBC 3.30 Mil/uL (3.80-5.20) L 02/13/18 12:05 Hgb 10.8 g/dL (12.0-16.0) L 02/13/18 12:05 Hct 32.4 % (34.0-47.0) L 02/13/18 12:05 MCV 98.1 fl (81.0-99.0) 02/13/18 12:05 MCH 32.8 pg (27.0-31.0) H 02/13/18 12:05 MCHC 33.4 g/dL (33.0-37.0) 02/13/18 12:05 RDW 13.7 % (11.5-14.5) 02/13/18 12:05 Plt Count 145 K/uL (130-400) 02/13/18 12:05 MPV 9.2 fl (7.2-11.7) 02/13/18 12:05 Neut % (Auto) 57.3 % (50.0-75.0) 02/13/18 12:05 Lymph % (Auto) 26.7 % (20.0-40.0) 02/13/18 12:05 [place] % (Auto) 11.0 % (0.0-10.0) H 02/13/18 12:05 Eos % (Auto) 3.9 % (0.0-4.0) 02/13/18 12:05 Baso % (Auto) 1.1 % (0.0-2.0) 02/13/18 12:05 Neut # (Auto) 2.9 K/uL (1.8-7.0) 02/13/18 12:05 Lymph # (Auto) 1.3 K/uL (1.0-4.3) 02/13/18 12:05 [place] # (Auto) 0.6 K/uL (0.0-0.8) 02/13/18 12:05 Eos # (Auto) 0.2 K/uL (0.0-0.7) 02/13/18 12:05 Baso # (Auto) 0.1 K/uL (0.0-0.2) 02/13/18 12:05 PT 11.8 Seconds (9.8-13.1) 02/13/18 12:05 INR 1.1 (0.9-1.2) 02/13/18 12:05 APTT 31.9 Seconds (25.6-37.1) 02/13/18 12:05 Sodium 142 mmol/l (132-148) 02/13/18 12:05 Potassium 4.9 MMOL/L (3.6-5.0) 02/13/18 12:05 Chloride 106 mmol/L (98-107) 02/13/18 12:05 Carbon Dioxide 25 mmol/L (22-30) 02/13/18 12:05 Anion Gap 16 (10-20) 02/13/18 12:05 BUN 25 mg/dl (7-17) H 02/13/18 12:05 Creatinine 1.0 mg/dl (0.7-1.2) 02/13/18 12:05 Est GFR ( Amer) > 60 02/13/18 12:05 Est GFR (Non-Af Amer) 53 02/13/18 12:05 POC Glucose (mg/dL) 239 mg/dL (65-110) H 02/14/18 10:45 Random Glucose 104 mg/dL (65-105) 02/13/18 12:05 Calcium 8.4 mg/dL (8.4-10.2) 02/13/18 12:05 Total Bilirubin 0.5 mg/dl (0.2-1.3) 02/13/18 12:05 AST 29 U/L (14-36) 02/13/18 12:05 ALT 39 U/L (9-52) 02/13/18 12:05 Alkaline Phosphatase 67 U/L (38-126) 02/13/18 12:05 Total Protein 6.4 G/DL (6.3-8.2) 02/13/18 12:05 Albumin 3.6 g/dL (3.5-5.0) 02/13/18 12:05 Globulin 2.8 gm/dL (2.2-3.9) 02/13/18 12:05 Albumin/Globulin Ratio 1.3 (1.0-2.1) 02/13/18 12:05 Discharge Exam - Head Exam Head Exam: NORMAL INSPECTION Discharge Plan - Discharge Medications Prescriptions: Clotrimazole/Betamethasone [Lotrisone] 15 gm EXT BID #1 tube - Follow Up Plan Condition: GOOD Disposition: TRANSF TO SNF Instructions: Rituximab
== END 2018-02-14 14:28 ==
LOC: H.MEDSURG1 10:01 → INTOOBSV 10:01
PROVIDERS: ADMIT Internal Medicine Pulmonary Disease; ATTEND Internal Medicine Pulmonary Disease
DX: G36.0 Neuromyelitis optica [Devic] (principal); G82.20 Paraplegia, unspecified; G89.29 Other chronic pain; G35 Multiple sclerosis; K59.00 Constipation, unspecified; F32.9 Major depressive disorder, single episode, unspecified; F41.9 Anxiety disorder, unspecified; E03.9 Hypothyroidism, unspecified; E78.00 Pure hypercholesterolemia, unspecified; H40.9 Unspecified glaucoma; F03.90 Unspecified dementia, unspecified severity, without behavioral disturbance, psychotic disturbance, mood disturbance, and anxiety; I10 Essential (primary) hypertension
CPT/HCPCS: 36415; 80053; 82948; 85025; 85610; 85730; 96365; 96367; 96416; G0378; J1100; J1200; J2405; J7040; J9310

== ENCOUNTER 2018-04-10 08:30 | Observation (INO) | payer MEDICARE, MEDICAID ==
--- NOTE | 2018-04-10 12:09 | CP.PCM.PN ---
Subjective - Date & Time of Evaluation Date of Evaluation: 04/10/18 Time of Evaluation: 12:03 - Subjective Subjective: This is a 82 yrs old female who was diagnosed to have Devics disease 4 yrs ago. After other treatments failed, she was started on rituximab to which she has responded very well. She had a reaction to the rituxan once, so it was given over 12 hrs and the pt tolerated it well. She has no complaints at this time. She comes in q8 weeks for the infusion. She has a past h/o DM,HTN,Hypercholesterolemia, hyperlipidemia She was never a smoker, does not drink Objective - Medications Medications: Current Medications Acetaminophen (Tylenol 325mg Tab) 650 mg PO ONCE ONE Stop: 04/10/18 11:33 Famotidine (Pepcid) 20 mg IVP STAT STA Stop: 04/10/18 11:35 Diphenhydramine HCl 25 mg/ (Sodium Chloride) 50.5 mls @ 101 mls/hr IVPB ONCE ONE Stop: 04/10/18 12:01 Dexamethasone 10 mg/ Sodium (Chloride) 51 mls @ 102 mls/hr IVPB ONCE ONE Stop: 04/10/18 12:01 Sodium Chloride (Sodium Chloride 0.9%) 500 mls @ 80 mls/hr IV .Q6H15M ADY Rituximab 585 mg/ Sodium (Chloride) 308.5 mls @ 0 mls/hr IV ONCE ONE PRN Reason: As Directed Stop: 04/10/18 11:38 Ondansetron HCl 16 mg/ Sodium (Chloride) 58 mls @ 116 mls/hr IVPB ONCE ONE Stop: 04/10/18 12:01 - Additional Findings Additional findings: Physical exam; Alert,well oriented in no acute distress neck supple, no adenopathy chest; Clear, no rales or rhgonchi Heart; RSR, no murmur Abd; soft, no mass no h/s megaly Assessment and Plan - Assessment and Plan (Free Text) Assessment: impression; Devics disease Plan: Plan; will give rituximab over 12 hrs and will send her home tomorrow.
[2018-04-10 12:40] LABS: BASO # 0.1 K/uL (0.0-0.2); EOS # 0.3 K/uL (0.0-0.7); EOS % 5.1 % (0.0-4.0); HEMOGLOBIN 11.3 g/dL (12.0-16.0); LYMPH # 1.3 K/uL (1.0-4.3); LYMPH % 24.2 % (20.0-40.0); MEAN CELL VOLUME 98.1 fl (81.0-99.0); MEAN CORPUSCULAR HEMOGLOBIN 32.9 pg (27.0-31.0); MEAN CORPUSCULAR HGB CONC 33.5 g/dL (33.0-37.0); MEAN PLATELET VOLUME 9.6 fl (7.2-11.7); MONO # 0.5 K/uL (0.0-0.8); NEUT # 3.4 K/uL (1.8-7.0); NEUT % 60.7 % (50.0-75.0); NRBC % 0.2 % (0.0-0.0); RBC 3.45 Mil/uL (3.80-5.20); RED CELL DISTRIBUTION WIDTH 13.4 % (11.5-14.5); WHITE BLOOD COUNT 5.6 K/uL (4.8-10.8)
[2018-04-10 12:41] LABS: ALB/GLOB RATIO 1.3 (1.0-2.1); ALBUMIN 3.7 g/dL (3.5-5.0); CALCIUM 8.5 mg/dL (8.4-10.2)
[2018-04-10] MEDS ORDERED: Dexamethasone 10 MG in Sodium Chloride 0.9% 50 ML IVPB ONE (13:00)
[2018-04-10] MEDS ORDERED: RITUXIMAB IV ONE (14:00)
[2018-04-10] MEDS ORDERED: SODIUM CHLORIDE 0.9% IV ONE (14:00)
[2018-04-10] MEDS: Sodium Chloride 0.9% 500 ML IV SCH ×2 (14:23→21:38)
--- NOTE | 2018-04-10 17:20 | CP.PCM.HP ---
Past Patient History - Tetanus Immunizations Tetanus Immunization: Unknown - Past Medical History & Family History Past Medical History?: Yes - Past Social History Smoking Status: Never Smoked - CARDIAC Hx Cardiac Disorders: Yes Hx Hypercholesterolemia: Yes Hx Hypertension: Yes - PULMONARY Hx Respiratory Disorders: No - NEUROLOGICAL Hx Neurological Disorder: Yes Hx Multiple Sclerosis: Yes Other/Comment: Devic's Disease - HEENT Hx HEENT Problems: Yes Hx Glaucoma: Yes (left eye) - RENAL Hx Chronic Kidney Disease: No - ENDOCRINE/METABOLIC Hx Endocrine Disorders: Yes Hx Diabetes Mellitus Type 1: Yes Hx Hypothyroidism: Yes - HEMATOLOGICAL/ONCOLOGICAL Hx Blood Disorders: Yes Hx Chemotherapy: Yes (for multiple sclerosis) Hx Shingles: Yes - INTEGUMENTARY Hx Dermatological Problems: No - MUSCULOSKELETAL/RHEUMATOLOGICAL Hx Musculoskeletal Disorders: Yes Hx Arthritis: Yes Hx Falls: No - GASTROINTESTINAL Hx Gastrointestinal Disorders: Yes Hx Constipation: Yes Hx Gastritis: Yes - GENITOURINARY/GYNECOLOGICAL Hx Genitourinary Disorders: Yes Hx Incontinence: Yes Hx Urinary Tract Infection: Yes Other/Comment: urosepsis - PSYCHIATRIC Hx Psychophysiologic Disorder: Yes Hx Anxiety: Yes Hx Depression: Yes Hx Substance Use: No - SURGICAL HISTORY Hx Surgeries: No - ANESTHESIA Hx Anesthesia: No Hx Anesthesia Reactions: No Hx Malignant Hyperthermia: No Meds Allergies/Adverse Reactions: Allergies Allergy/AdvReac Type Severity Reaction Status Date / Time ciprofloxacin [From Cipro] Allergy RASH Verified 10/23/17 08:24 ciprofloxacin HCl Allergy RASH Verified 10/23/17 08:24 [From Cipro] Results - Vital Signs Recent Vital Signs: Last Vital Signs Temp 98.2 F 04/10/18 16:02 Pulse 50 L 04/10/18 16:02 Resp 20 04/10/18 16:02 BP 122/64 04/10/18 16:02 Pulse Ox 96 04/10/18 16:02 - Labs Result Diagrams: 04/10/18 12:20 04/10/18 12:20 Labs: Laboratory Results - last 24 hr 04/10/18 04/10/18 04/10/18 12:19 12:20 12:20 WBC 5.6 RBC 3.45 L Hgb 11.3 L Hct 33.8 L MCV 98.1 MCH 32.9 H MCHC 33.5 RDW 13.4 Plt Count 157 MPV 9.6 Neut % (Auto) 60.7 Lymph % (Auto) 24.2 [place] % (Auto) 9.0 Eos % (Auto) 5.1 H Baso % (Auto) 1.0 Neut # (Auto) 3.4 Lymph # (Auto) 1.3 [place] # (Auto) 0.5 Eos # (Auto) 0.3 Baso # (Auto) 0.1 Sodium 138 Potassium 5.1 H Chloride 106 Carbon Dioxide 21 L Anion Gap 16 BUN 25 H Creatinine 1.2 Est GFR ( Amer) 52 Est GFR (Non-Af Amer) 43 POC Glucose (mg/dL) 106 Random Glucose 119 H Calcium 8.5 Total Bilirubin 0.5 AST 29 ALT 31 Alkaline Phosphatase 61 Total Protein 6.6 Albumin 3.7 Globulin 2.9 Albumin/Globulin Ratio 1.3 04/10/18 15:43 WBC RBC Hgb Hct MCV MCH MCHC RDW Plt Count MPV Neut % (Auto) Lymph % (Auto) [place] % (Auto) Eos % (Auto) Baso % (Auto) Neut # (Auto) Lymph # (Auto) [place] # (Auto) Eos # (Auto) Baso # (Auto) Sodium Potassium Chloride Carbon Dioxide Anion Gap BUN Creatinine Est GFR ( Amer) Est GFR (Non-Af Amer) POC Glucose (mg/dL) 170 H Random Glucose Calcium Total Bilirubin AST ALT Alkaline Phosphatase Total Protein Albumin Globulin Albumin/Globulin Ratio
[2018-04-10] MEDS ORDERED: Sod Polystyrene Sulf 15 gm/60 ml Susp PO ONE (19:09)
[2018-04-11 00:10] VITALS: RESP 18
[2018-04-11] MEDS: Sodium Chloride 0.9% 500 ML IV SCH ×2 (01:30→04:16)
[2018-04-11 06:36] LABS: HEMOGLOBIN 11.3 g/dL (12.0-16.0); MEAN CELL VOLUME 98.7 fl (81.0-99.0); MEAN CORPUSCULAR HGB CONC 33.4 g/dL (33.0-37.0); RBC 3.44 Mil/uL (3.80-5.20); RED CELL DISTRIBUTION WIDTH 13.3 % (11.5-14.5); WHITE BLOOD COUNT 5.3 K/uL (4.8-10.8)
[2018-04-11 06:47] LABS: BLOOD UREA NITROGEN 23 mg/dl (7-17); CALCIUM 8.3 mg/dL (8.4-10.2); GFR NON-AFRICAN AMERICAN 53
--- NOTE | 2018-04-11 08:13 | CP.PCM.PN ---
Subjective - Date & Time of Evaluation Date of Evaluation: 04/11/18 Time of Evaluation: 08:12 - Subjective Subjective: Pt had no side effects from the rituxan. She will return in 2 months for the next dose of rituxan Objective - Vital Signs/Intake and Output Vital Signs (last 24 hours): Temp Pulse Resp BP Pulse Ox 98.2 F 60 18 167/67 H 96 04/11/18 00:10 04/11/18 00:10 04/11/18 00:10 04/11/18 00:10 04/11/18 00:10 - Medications Medications: Current Medications Sodium Chloride (Sodium Chloride 0.9%) 500 mls @ 80 mls/hr IV .Q6H15M ADY Last Admin: 04/11/18 04:16 Dose: 80 mls/hr - Labs Labs: 04/11/18 05:45 04/11/18 05:45
[2018-04-11 08:29] VITALS: TEMP 98.6
[2018-04-11] MEDS ORDERED: Levothyroxine 75 MCG TAB PO SCH (10:00)
[2018-04-11] MEDS ORDERED: Pantoprazole 20 mg EC Tab PO SCH (10:00)
[2018-04-11] MEDS ORDERED: POLYETHYLENE GLYCOL 3350 17 GM/Dose PACKET PO SCH (10:00)
[2018-04-11] MEDS ORDERED: Oxycodone/Acetaminophen 5/325 mg Tab PO ONE (11:02)
--- NOTE | 2018-04-11 11:10 | CP.PCM.HP ---
History of Present Illness - History of Present Illness History of Present Illness: CC: Devic's Disease. 82 y/o F with multiple chronic medical condition including Multiple sclerosis, Paraplegia, resident at [facility], brought to [facility] previously scheduled to receive Rituximab infusion. Worsening symptoms: Weakness. Aggravated factor: Confined to wheelchair/ bed. Pt denied: fever, chills, CP, palpitations, SOB, cough, n/v/d, abdominal pain, sick contact. Present on Admission - Present on Admission Any Indicators Present on Admission: No Review of Systems - Constitutional Constitutional: Weakness - EENT Eyes: Requires Corrective Lenses Ears: Other (negtive) Nose/Mouth/Throat: Other (negative) - Cardiovascular Cardiovascular: Other (negative) - Respiratory Respiratory: Other (negative) - Gastrointestinal Gastrointestinal: Other (negative) - Genitourinary Genitourinary: Urinary Incontinence - Musculoskeletal Musculoskeletal: Arthralgias - Integumentary Integumentary: Other (negative) - Neurological Neurological: Other (Paralysis BLE) - Psychiatric Psychiatric: Depression - Endocrine Endocrine: Other (negative) - Hematologic/Lymphatic Hematologic: Other (negative) Past Patient History - Tetanus Immunizations Tetanus Immunization: Unknown - Past Medical History & Family History Past Medical History?: Yes Pertinent Family History: Unknown - Past Social History Smoking Status: Never Smoked Alcohol: None Drugs: Denies Home Situation {Lives}: Half-Way - CARDIAC Hx Cardiac Disorders: Yes Hx Hypercholesterolemia: Yes Hx Hypertension: Yes - PULMONARY Hx Respiratory Disorders: No - NEUROLOGICAL Hx Neurological Disorder: Yes Hx Multiple Sclerosis: Yes Other/Comment: Devic's Disease - HEENT Hx HEENT Problems: Yes Hx Glaucoma: Yes (left eye) - RENAL Hx Chronic Kidney Disease: No - ENDOCRINE/METABOLIC Hx Endocrine Disorders: Yes Hx Diabetes Mellitus Type 1: Yes Hx Hypothyroidism: Yes - HEMATOLOGICAL/ONCOLOGICAL Hx Blood Disorders: Yes Hx Chemotherapy: Yes (for multiple sclerosis) Hx Shingles: Yes - INTEGUMENTARY Hx Dermatological Problems: No - MUSCULOSKELETAL/RHEUMATOLOGICAL Hx Musculoskeletal Disorders: Yes Hx Arthritis: Yes Hx Falls: No - GASTROINTESTINAL Hx Gastrointestinal Disorders: Yes Hx Constipation: Yes Hx Gastritis: Yes - GENITOURINARY/GYNECOLOGICAL Hx Genitourinary Disorders: Yes Hx Incontinence: Yes Hx Urinary Tract Infection: Yes Other/Comment: urosepsis - PSYCHIATRIC Hx Psychophysiologic Disorder: Yes Hx Anxiety: Yes Hx Depression: Yes Hx Substance Use: No - SURGICAL HISTORY Hx Surgeries: No - ANESTHESIA Hx Anesthesia: No Hx Anesthesia Reactions: No Hx Malignant Hyperthermia: No Meds Allergies/Adverse Reactions: Allergies Allergy/AdvReac Type Severity Reaction Status Date / Time ciprofloxacin [From Cipro] Allergy RASH Verified 10/23/17 08:24 ciprofloxacin HCl Allergy RASH Verified 10/23/17 08:24 [From Cipro] Physical Exam - Constitutional Appears: No Acute Distress, Chronically Ill - Head Exam Head Exam: NORMAL INSPECTION - Eye Exam Eye Exam: PERRL - ENT Exam ENT Exam: Normal Exam - Neck Exam Neck exam: Positive for: Normal Inspection - Respiratory Exam Respiratory Exam: Clear to Auscultation Bilateral - Cardiovascular Exam Cardiovascular Exam: REGULAR RHYTHM - GI/Abdominal Exam GI & Abdominal Exam: Normal Bowel Sounds, Soft - Extremities Exam Additional comments: Paralysis BLE, R-L foot droop, L hand contracted - Neurological Exam Neurological exam: Alert, Oriented x3 Additional comments: Paraplegia, no movements or sensations BLE, R-L foot droop. - Psychiatric Exam Psychiatric exam: Depressed - Skin Skin Exam: Warm Results - Vital Signs Recent Vital Signs: Last Vital Signs Temp 98.6 F 04/11/18 08:29 Pulse 53 L 04/11/18 08:29 Resp 18 04/11/18 08:29 BP 164/60 H 04/11/18 08:29 Pulse Ox 95 04/11/18 08:29 reviewed Brent - Labs Result Diagrams: 04/11/18 05:45 04/11/18 05:45 Labs: Laboratory Results - last 24 hr 04/10/18 04/10/18 04/10/18 12:19 12:20 12:20 WBC 5.6 RBC 3.45 L Hgb 11.3 L Hct 33.8 L MCV 98.1 MCH 32.9 H MCHC 33.5 RDW 13.4 Plt Count 157 MPV 9.6 Neut % (Auto) 60.7 Lymph % (Auto) 24.2 [place] % (Auto) 9.0 Eos % (Auto) 5.1 H Baso % (Auto) 1.0 Neut # (Auto) 3.4 Lymph # (Auto) 1.3 [place] # (Auto) 0.5 Eos # (Auto) 0.3 Baso # (Auto) 0.1 Sodium 138 Potassium 5.1 H Chloride 106 Carbon Dioxide 21 L Anion Gap 16 BUN 25 H Creatinine 1.2 Est GFR ( Amer) 52 Est GFR (Non-Af Amer) 43 POC Glucose (mg/dL) 106 Random Glucose 119 H Calcium 8.5 Total Bilirubin 0.5 AST 29 ALT 31 Alkaline Phosphatase 61 Total Protein 6.6 Albumin 3.7 Globulin 2.9 Albumin/Globulin Ratio 1.3 04/10/18 04/10/18 04/11/18 15:43 21:25 05:45 WBC 5.3 RBC 3.44 L Hgb 11.3 L Hct 34.0 MCV 98.7 MCH 33.0 H MCHC 33.4 RDW 13.3 Plt Count 156 MPV Neut % (Auto) Lymph % (Auto) [place] % (Auto) Eos % (Auto) Baso % (Auto) Neut # (Auto) Lymph # (Auto) [place] # (Auto) Eos # (Auto) Baso # (Auto) Sodium Potassium Chloride Carbon Dioxide Anion Gap BUN Creatinine Est GFR ( Amer) Est GFR (Non-Af Amer) POC Glucose (mg/dL) 170 H 248 H Random Glucose Calcium Total Bilirubin AST ALT Alkaline Phosphatase Total Protein Albumin Globulin Albumin/Globulin Ratio 04/11/18 04/11/18 04/11/18 05:45 05:48 10:54 WBC RBC Hgb Hct MCV MCH MCHC RDW Plt Count MPV Neut % (Auto) Lymph % (Auto) [place] % (Auto) Eos % (Auto) Baso % (Auto) Neut # (Auto) Lymph # (Auto) [place] # (Auto) Eos # (Auto) Baso # (Auto) Sodium 141 Potassium 4.8 Chloride 109 H Carbon Dioxide 19 L Anion Gap 18 BUN 23 H Creatinine 1.0 Est GFR ( Amer) > 60 Est GFR (Non-Af Amer) 53 POC Glucose (mg/dL) 172 H 181 H Random Glucose 180 H Calcium 8.3 L Total Bilirubin AST ALT Alkaline Phosphatase Total Protein Albumin Globulin Albumin/Globulin Ratio reviewed J.P. Assessment & Plan (1) Devic's disease Status: Chronic Priority: High (2) Diabetes mellitus Status: Chronic Priority: Medium (3) Hypothyroid Status: Chronic Priority: Medium (4) Dyslipidemia Status: Chronic Priority: Low (5) Depression Status: Chronic Priority: Medium - Assessment and Plan (Free Text) Plan: Pt tolerated well Rituximab infusion, no n/v/d, no pain, no c/o Pt stable to be discharged to [facility] today. I will follow Pt in that facility. - Date & Time Date: 04/11/18 Time: 10:30
[2018-04-11] MEDS ORDERED: PEG OU SCH (13:00)
[2018-04-11] MEDS ORDERED: PROPYLENE GLYCOL OU SCH (13:00)
[2018-04-11 15:43] VITALS: BP 145/55; PULSE 54; O2SAT 96
[2018-04-11] MEDS ORDERED: Omega-3-Acid Ethyl Esters 1 GM Cap PO SCH (17:00)
[2018-04-11] MEDS ORDERED: BETAMETHASONE EXT SCH (17:00)
[2018-04-11] MEDS ORDERED: CLOTRIMAZOLE EXT SCH (17:00)
[2018-04-11] MEDS ORDERED: Insulin Lispro (humaLOG) 100 Units/ml Inj SC SCH (17:00)
[2018-04-11] MEDS ORDERED: INSULIN ASPART RECOMBINANT SC SCH (17:00)
[2018-04-11] MEDS ORDERED: VITAMIN D3 PO SCH (18:00)
[2018-04-11] MEDS ORDERED: CALCIUM CARBONATE PO SCH (18:00)
[2018-04-11] MEDS ORDERED: DOCUSATE SODIUM 200 MG PO SCH (22:00)
[2018-04-12] MEDS ORDERED: Multivitamin With Minerals Tab PO SCH (09:00)
[2018-04-12] MEDS ORDERED: MULTIVITAMIN PO SCH (09:00)
[2018-04-12] MEDS ORDERED: Magnesium Hydroxide Susp 30 ml UD PO SCH (09:00)
--- NOTE | 2018-04-30 13:13 | CP.PCM.DIS ---
Provider - Provider Date of Admission: 04/10/18 11:26 Attending physician: Jameson Chiu MD Consults: Hematology/Oncology Time Spent in preparation of Discharge (in minutes): 35 Diagnosis - Discharge Diagnosis (1) Devic's disease Status: Chronic Priority: High (2) Diabetes mellitus Status: Chronic Priority: Medium (3) Hypothyroid Status: Chronic Priority: Medium (4) Dyslipidemia Status: Chronic Priority: Low (5) Depression Status: Chronic Priority: Medium Hospital Course - Lab Results Lab Results: Most Recent Lab Values WBC 5.3 K/uL (4.8-10.8) 04/11/18 05:45 RBC 3.44 Mil/uL (3.80-5.20) L 04/11/18 05:45 Hgb 11.3 g/dL (12.0-16.0) L 04/11/18 05:45 Hct 34.0 % (34.0-47.0) 04/11/18 05:45 MCV 98.7 fl (81.0-99.0) 04/11/18 05:45 MCH 33.0 pg (27.0-31.0) H 04/11/18 05:45 MCHC 33.4 g/dL (33.0-37.0) 04/11/18 05:45 RDW 13.3 % (11.5-14.5) 04/11/18 05:45 Plt Count 156 K/uL (130-400) 04/11/18 05:45 MPV 9.6 fl (7.2-11.7) 04/10/18 12:20 Neut % (Auto) 60.7 % (50.0-75.0) 04/10/18 12:20 Lymph % (Auto) 24.2 % (20.0-40.0) 04/10/18 12:20 [place] % (Auto) 9.0 % (0.0-10.0) 04/10/18 12:20 Eos % (Auto) 5.1 % (0.0-4.0) H 04/10/18 12:20 Baso % (Auto) 1.0 % (0.0-2.0) 04/10/18 12:20 Neut # (Auto) 3.4 K/uL (1.8-7.0) 04/10/18 12:20 Lymph # (Auto) 1.3 K/uL (1.0-4.3) 04/10/18 12:20 [place] # (Auto) 0.5 K/uL (0.0-0.8) 04/10/18 12:20 Eos # (Auto) 0.3 K/uL (0.0-0.7) 04/10/18 12:20 Baso # (Auto) 0.1 K/uL (0.0-0.2) 04/10/18 12:20 Sodium 141 mmol/l (132-148) 04/11/18 05:45 Potassium 4.8 MMOL/L (3.6-5.0) 04/11/18 05:45 Chloride 109 mmol/L (98-107) H 04/11/18 05:45 Carbon Dioxide 19 mmol/L (22-30) L 04/11/18 05:45 Anion Gap 18 (10-20) 04/11/18 05:45 BUN 23 mg/dl (7-17) H 04/11/18 05:45 Creatinine 1.0 mg/dl (0.7-1.2) 04/11/18 05:45 Est GFR ( Amer) > 60 04/11/18 05:45 Est GFR (Non-Af Amer) 53 04/11/18 05:45 POC Glucose (mg/dL) 194 mg/dL (65-110) H 04/11/18 15:35 Random Glucose 180 mg/dL (65-105) H 04/11/18 05:45 Calcium 8.3 mg/dL (8.4-10.2) L 04/11/18 05:45 Total Bilirubin 0.5 mg/dl (0.2-1.3) 04/10/18 12:20 AST 29 U/L (14-36) 04/10/18 12:20 ALT 31 U/L (9-52) 04/10/18 12:20 Alkaline Phosphatase 61 U/L (38-126) 04/10/18 12:20 Total Protein 6.6 G/DL (6.3-8.2) 04/10/18 12:20 Albumin 3.7 g/dL (3.5-5.0) 04/10/18 12:20 Globulin 2.9 gm/dL (2.2-3.9) 04/10/18 12:20 Albumin/Globulin Ratio 1.3 (1.0-2.1) 04/10/18 12:20 - Hospital Course Hospital Course: 82 years old female admitted for Riuximab infusion Past medical Devic's disease (MS), glaucoma left eye DM, DM, hypothyroidism, shingles, arthritis, constipation, gastritis, UTI, depression Surgical history: None Patient with paraplegia lower extremities secondary to advanced MS, alert oriented 3 Patient had Rituximab infusion without adverse effect and was dicharged in improved and stable condition to [facility], see ins/med MAR. I will follow Patient in this Facility. - Date & Time of H&P Date of H&P: 04/11/18 Time of H&P: 10:30 Discharge Exam - Head Exam Head Exam: NORMAL INSPECTION Discharge Plan - Follow Up Plan Condition: GOOD Disposition: TRANSF TO SNF Instructions: Multiple Sclerosis, Adult (DC) Additional Instructions: pt. cleared for discharge to [facility]
== END 2018-04-11 16:00 ==
LOC: H.MEDSURG1 11:26
PROVIDERS: ADMIT Internal Medicine Pulmonary Disease; ATTEND Internal Medicine Pulmonary Disease
DX: G36.0 Neuromyelitis optica [Devic] (principal); G35 Multiple sclerosis; G82.20 Paraplegia, unspecified; I10 Essential (primary) hypertension; E11.9 Type 2 diabetes mellitus without complications; E03.9 Hypothyroidism, unspecified; E78.5 Hyperlipidemia, unspecified; E78.00 Pure hypercholesterolemia, unspecified; M19.90 Unspecified osteoarthritis, unspecified site; F32.9 Major depressive disorder, single episode, unspecified; Z99.3 Dependence on wheelchair; Z87.440 Personal history of urinary (tract) infections; Z88.1 Allergy status to other antibiotic agents
CPT/HCPCS: 36415; 80048; 80053; 82948; 85025; 85027; 96365; 96416; G0378; J1100; J1200; J2405; J7040; J9310

== ENCOUNTER 2018-05-09 14:45 | Inpatient (IN) | payer MEDICARE, MEDICAID ==
[2018-05-09 14:45] VITALS: BMI 22.4
--- NOTE | 2018-05-09 15:15 | ED PDOC ---
HPI: General Adult Time Seen by Provider: 05/09/18 14:53 Chief Complaint (Nursing): Dizziness/Lightheaded Chief Complaint (Provider): Hypotension History Per: Patient, Other ([facility] sheets) History/Exam Limitations: clinical condition Onset/Duration Of Symptoms: Hrs ([employer]) Current Symptoms Are (Timing): Still Present Additional Complaint(s): 82 year old female with a history of htn, hypercholesterolemia, multiple sclerosis, diabetes, and hypothyroidism presents to the ED for hypotension. Patient is a poor historian, partial history obtained from [facility] sheets and patient. According to sheets, she had lower blood pressure, systolic 79, at [facility], prompting ED visit. Otherwise, patient is cold and has mild generalized weakness. She has back pain, but it is chronic. PMD: Dr. Chiu Past Medical History Reviewed: Historical Data, Nursing Documentation, Vital Signs Vital Signs: Last Vital Signs Temp 98 F 05/09/18 14:48 Pulse 62 05/09/18 16:56 Resp 21 05/09/18 16:56 BP 131/46 L 05/09/18 16:56 Pulse Ox 96 05/09/18 16:56 - Medical History PMH: Anxiety, Arthritis, Dementia, Depression, Diabetes, Gastritis, HTN, Hypercholesterolemia, Hypothyroidism, Multiple Sclerosis Denies: CHF, COPD, Chronic Kidney Disease, Rheumatoid Arthritis - Surgical History Surgical History: No Surg Hx - Family History Family History: States: Unknown Family Hx - Home Medications Home Medications: Ambulatory Orders Medication Instructions Recorded Atorvastatin [Lipitor] 10 mg PO HS 05/21/16 Calcium Carbonate/Vitamin D3 1 tab PO QPM 05/21/16 [Oyster Shell Calcium Tablet] Docusate Sodium 200 mg PO HS 05/21/16 Gabapentin [Neurontin] 300 mg PO TID 05/21/16 Levothyroxine [Synthroid] 75 mcg PO DAILY 05/21/16 Lipase/Protease/Amylase [Creon Dr 2 cap PO TID 05/21/16 24,000 Units Capsule] Magnesium Hydroxide [Milk Of 30 ml PO MWF 05/21/16 Magnesia] Pantoprazole [Protonix EC Tab] 20 mg PO QPM 05/21/16 Polyethylene Glycol 3350 [Miralax] 17 gm PO DAILY 05/21/16 Propylene Glycol/Peg 400 [Systane 1 drop OU TID 05/21/16 Liquid Gel Eye Drops] Simethicone [Gas Relief] 125 mg PO TID 05/21/16 fentaNYL 75 mcg/hr [Duragesic 1 patch TD Q72H 05/21/16 Patch 75 mcg/hr] Ascorbic Acid [Vitamin C 500 mg 500 mg PO DAILY 11/21/16 Tab] Ezetimibe [Zetia] 10 mg PO HS 11/21/16 Insulin Aspart, Recombinant 4 unit SC DIN 11/21/16 [Novolog] Multivitamin [One Daily 1 tab PO DAILY 11/21/16 Multivitamin] Bisacodyl [Dulcolax] 10 mg SC Q2D 01/17/17 [id number] Ethyl Esters 1 GM 2 gm PO BID sgl 01/18/17 [Lovaza] Linagliptin [Tradjenta] 5 mg PO DAILY 06/11/17 Ondansetron [Zofran Tab] 8 mg PO Q8H PRN 06/11/17 Prochlorperazine [Compro] 25 mg SC Q12H PRN 06/11/17 Acetaminophen [Non-Aspirin Pain 650 mg PO Q4 PRN 08/27/17 Relief] Enalapril Maleate [Vasotec] 10 mg PO DAILY 08/27/17 Lactulose 20 gm PO HS 08/27/17 Dorzolamide 2% [Trusopt] 1 drop EACHEYE TID 05/09/18 Mometasone 0.1% [Elocon Cream] 1 appl TOP BID 05/09/18 - Allergies Allergies/Adverse Reactions: Allergies Allergy/AdvReac Type Severity Reaction Status Date / Time ciprofloxacin [From Cipro] Allergy RASH Verified 10/23/17 08:24 ciprofloxacin HCl Allergy RASH Verified 10/23/17 08:24 [From Cipro] Review of Systems Constitutional: Positive for: Weakness (generalized ), Other (cold) Gastrointestinal: Positive for: Constipation (intermittent but relieved with suppository), Other (poor appetite) Musculoskeletal: Positive for: Other (bilateral lower leg weakness) Neurological: Positive for: Headache (tightness) Physical Exam - Reviewed Nursing Documentation Reviewed: Yes Vital Signs Reviewed: Yes - Physical Exam Appears: Positive for: No Acute Distress (chronically ill appearing) Head Exam: Positive for: ATRAUMATIC, NORMOCEPHALIC Skin: Positive for: Warm, Dry, Pallor Eye Exam: Positive for: EOMI, PERRL ENT: Positive for: Pharynx Is (clear), Other (tacky mucous membranes) Neck: Positive for: Painless ROM, Supple Cardiovascular/Chest: Positive for: Regular Rate, Rhythm, Other (fentanyl patch attached to chest wall, removed). Negative for: Murmur Respiratory: Positive for: Normal Breath Sounds. Negative for: Respiratory Distress Gastrointestinal/Abdominal: Positive for: Distended (softly). Negative for: Tenderness, Mass, Guarding, Rebound Back: Positive for: Other (Erythema to sacrum no decubiti) Rectal: Positive for: Other (Large amount of soft brown stool in diaper, RN at bedside) Extremity: Positive for: Other (poor lower extremity muscle bulk with contractors). Negative for: Pedal Edema Lymphatic: Negative for: Adenopathy Neurologic/Psych: Positive for: Alert, Oriented (x2), Other (bilateral lower extremity paraplegia) - Laboratory Results Result Diagrams: 05/09/18 15:25 05/09/18 15:25 - ECG O2 Sat by Pulse Oximetry: 99 (RA) Pulse Ox Interpretation: Normal Medical Decision Making Medical Decision Making: Time: 1502 Initial Impression: weakness and hypotension Differential diagnose include but are not limited to: dehydration, sepsis, MS exacerbation, adverse opioid effect, anemia, electrolyte abnormalities, or diarrheal illness Initial Plan: --Type and Screen --EKG --B-type natriuretic peptide --CMP --Free T4 --Lact acid --Lipase --Magnesium --Phosphorus --T3 --Thyroid stimulating hormone --Troponin --U dip --CBC with differentials --Partial thromboplastin time --Prothrombin time --Blood culture --Ova and parasite --Stool culture --Glucose --Urinary straight catheterizati --C diff toxin Labs demonstrate BUN elevated and UA with large leuks and bacteria. Findings c/ w dehydration (which pt demonstrates clinically as well) and UTI. Previous charts reviewed. Pt has had pseudomal UTI in the past. IV rocephin ordered ( according to sensitivities). Scribe Attestation: Documented by Shannan Costello, acting as a scribe for Rosa Briggs MD Provider Scribe Attestation: All medical record entries made by the Scribe were at my direction and personally dictated by me. I have reviewed the chart and agree that the record accurately reflects my personal performance of the history, physical exam, medical decision making, and the department course for this patient. I have also personally directed, reviewed, and agree with the discharge instructions and disposition. 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
[2018-05-09 15:49] LABS: BASO # 0.1 K/uL (0.0-0.2); BASO % 0.9 % (0.0-2.0); EOS # 0.2 K/uL (0.0-0.7); EOS % 3.3 % (0.0-4.0); HEMOGLOBIN 11.7 g/dL (12.0-16.0); LYMPH # 1.3 K/uL (1.0-4.3); LYMPH % 18.8 % (20.0-40.0); MEAN CELL VOLUME 99.3 fl (81.0-99.0); MEAN CORPUSCULAR HGB CONC 33.2 g/dL (33.0-37.0); MEAN PLATELET VOLUME 9.5 fl (7.2-11.7); MONO # 0.6 K/uL (0.0-0.8); MONO % 8.4 % (0.0-10.0); NEUT # 4.7 K/uL (1.8-7.0); NEUT % 68.6 % (50.0-75.0); RBC 3.56 Mil/uL (3.80-5.20); RED CELL DISTRIBUTION WIDTH 13.1 % (11.5-14.5); WHITE BLOOD COUNT 6.9 K/uL (4.8-10.8)
[2018-05-09 15:52] LABS: PROTHROMBIN TIME 10.8 Seconds (9.8-13.1)
[2018-05-09 15:54] LABS: PARTIAL THROMBOPLASTIN TIME 35.6 Seconds (25.6-37.1)
[2018-05-09 15:56] LABS: ALB/GLOB RATIO 1.4 (1.0-2.1); ALBUMIN 4.1 g/dL (3.5-5.0); ALT/SGPT 35 U/L (9-52); AST/SGOT 31 U/L (14-36); BLOOD UREA NITROGEN 25 mg/dl (7-17); CALCIUM 8.8 mg/dL (8.4-10.2); GFR NON-AFRICAN AMERICAN 48; LIPASE 113 U/L (23-300)
[2018-05-09] MEDS ORDERED: Sodium Chloride 0.9% 500 ML IV STA (15:58)
[2018-05-09 16:14] LABS: B-TYPE NATRIURETIC PEPTIDE 649 pg/ml (0-900)
[2018-05-09 16:41] LABS: SQUAMOUS EPITHIAL 1 /hpf (0-5); URINE BACTERIA FEW (<OCC); URINE BILIRUBIN NEGATIVE (NEGATIVE); URINE BLOOD MODERATE (NEGATIVE); URINE CLARITY TURBID (Clear); URINE COLOR AMBER (YELLOW); URINE GLUCOSE (UA) NEG (Normal); URINE LEUKOCYTE ESTERASE MOD Leu/uL (Negative); URINE PROTEIN 100 mg/dL (NEGATIVE); URINE UROBILINOGEN 0.2-1.0 mg/dL (0.2-1.0); WBC CLUMPS MANY /hpf
--- NOTE | 2018-05-09 16:53 | RAD ---
Date of service: 05/09/2018 HISTORY: hypotension COMPARISON: 06/11/2017 FINDINGS: LUNGS: Pulmonary hyperinflation. Possible emphysema. No infiltrate. PLEURA: No significant pleural effusion identified, no pneumothorax apparent. CARDIOVASCULAR: Normal. OSSEOUS STRUCTURES: No significant abnormalities. VISUALIZED UPPER ABDOMEN: Normal. OTHER FINDINGS: None. IMPRESSION: No active disease.
[2018-05-09] MEDS ORDERED: cefTRIAXone (Rocephin) 1 gm Inj ONE (17:20)
[2018-05-09] MEDS ORDERED: Dextrose 50% SYRINGE Inj (50 ml) IV PRN (22:41)
[2018-05-09] MEDS ORDERED: Glucagon Recombinant 1 mg Inj IM PRN (22:41)
[2018-05-09] MEDS: Sodium Chloride 0.9% 1,000 ML IV SCH (23:02)
[2018-05-09] MEDS: Pantoprazole 20 mg EC Tab PO SCH (23:17)
[2018-05-10 06:14] LABS: HEMOGLOBIN 10.5 g/dL (12.0-16.0); MEAN CELL VOLUME 100.7 fl (81.0-99.0); MEAN CORPUSCULAR HEMOGLOBIN 32.9 pg (27.0-31.0); MEAN CORPUSCULAR HGB CONC 32.6 g/dL (33.0-37.0); RBC 3.2 Mil/uL (3.80-5.20); WHITE BLOOD COUNT 5.3 K/uL (4.8-10.8)
[2018-05-10 06:29] LABS: ALB/GLOB RATIO 1.3 (1.0-2.1); ALBUMIN 3.6 g/dL (3.5-5.0); CALCIUM 8.3 mg/dL (8.4-10.2)
[2018-05-10 06:44] LABS: T4 9.08 ug/dl (5.5-11.0)
[2018-05-10 06:57] LABS: T3 0.793 nmol/L (1.49-2.60)
[2018-05-10] MEDS: Insulin Lispro (humaLOG) 100 Units/ml Inj SC SCH ×5 (06:58→22:00)
[2018-05-10] MEDS: Levothyroxine 75 MCG TAB PO SCH (07:08)
--- NOTE | 2018-05-10 08:24 | CARD ---
APPROVED REPORT Date of service: 05/09/2018 EKG Measurement Heart [id number] <Conclusion> Sinus bradycardia Otherwise normal ECG
[2018-05-10] MEDS ORDERED: Simethicone 80 mg Chewtab PO PRN (09:00)
[2018-05-10] MEDS ORDERED: Sod Polystyrene Sulf 15 gm/60 ml Susp PO ONE (09:25)
[2018-05-10] MEDS: Magnesium Hydroxide Susp 30 ml UD PO SCH (09:49)
[2018-05-10] MEDS: Omega-3-Acid Ethyl Esters 1 GM Cap PO SCH ×2 (09:49→17:13)
[2018-05-10] MEDS: POLYETHYLENE GLYCOL 3350 17 GM/Dose PACKET PO SCH (09:50)
[2018-05-10] MEDS: Dorzolamide 2% Ophth Soln OU SCH ×3 (09:50→17:14)
[2018-05-10] MEDS: Multivitamin With Minerals Tab PO SCH (09:50)
[2018-05-10] MEDS: Sodium Chloride 0.9% 1,000 ML IV SCH ×3 (11:40→21:39)
--- NOTE | 2018-05-10 12:31 | CP.PCM.HP ---
History of Present Illness - History of Present Illness History of Present Illness: CC: Hypotension. 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 Hx as per Intermediate information. Worsening symptoms: Generalized weakness. Found with Urine on Barone C-S: Gram Negative Jose. Aggravated factor: Poor historian, movements/exercise. Denied: Fever, chills, CP, palpitations, syncope, SOB, cough, sick contact. CXR: No active disease. EKG: Sinus Bradycardia. Present on Admission - Present on Admission Any Indicators Present on Admission: No Review of Systems - Constitutional Constitutional: Weakness - EENT Eyes: Requires Corrective Lenses, Other (Glaucoma L eye) Ears: Other (negative) Nose/Mouth/Throat: Other (negative) - Cardiovascular Cardiovascular: Lightheadedness, Slow Heart Rate - Respiratory Respiratory: Other (negative) - Gastrointestinal Gastrointestinal: Constipation - Genitourinary Genitourinary: Urinary Incontinence, Freq UTI - Musculoskeletal Musculoskeletal: Arthralgias, Back Pain (chronic), Numbness (L/E), Other ( Paralysis lower extremities.) - Integumentary Integumentary: Other (healed sacral ulcer) - Neurological Neurological: Dizziness, Numbness (L/E, paralysis.), Weakness, Other Additional comments: Paraplegia - Psychiatric Psychiatric: Anxiety, Depression - Endocrine Endocrine: Other (negative) - Hematologic/Lymphatic Hematologic: Other (anemia) Past Patient History - Tetanus Immunizations Tetanus Immunization: Unknown - Past Medical History & Family History Past Medical History?: Yes Pertinent Family History: Unknown - Past Social History Smoking Status: Never Smoked Alcohol: None Drugs: Denies Home Situation {Lives}: Intermediate - CARDIAC Hx Cardiac Disorders: Yes (HTN,HLD) - PULMONARY Hx Respiratory Disorders: No Hx Chronic Obstructive Pulmonary Disease (COPD): No - NEUROLOGICAL Hx Neurological Disorder: Yes (MS) - HEENT Hx HEENT Problems: No - RENAL Hx Chronic Kidney Disease: No - ENDOCRINE/METABOLIC Hx Endocrine Disorders: Yes (DM2,HYPOTHYROID) - HEMATOLOGICAL/ONCOLOGICAL Hx Blood Disorders: No Hx AIDS: No Hx Human Immunodeficiency Virus (HIV): No - INTEGUMENTARY Hx Dermatological Problems: No - MUSCULOSKELETAL/RHEUMATOLOGICAL Hx Musculoskeletal Disorders: Yes (ARTHRITIS) Hx Arthritis: Yes Hx Falls: No - GASTROINTESTINAL Hx Gastrointestinal Disorders: Yes Hx Gastritis: Yes - GENITOURINARY/GYNECOLOGICAL Hx Genitourinary Disorders: Yes (UTI) - PSYCHIATRIC Hx Psychophysiologic Disorder: Yes (ANXIETY,DEPRESSION) Hx Substance Use: No - SURGICAL HISTORY Hx Surgeries: No - ANESTHESIA Hx Anesthesia: No Hx Anesthesia Reactions: No Hx Malignant Hyperthermia: No Meds Allergies/Adverse Reactions: Allergies Allergy/AdvReac Type Severity Reaction Status Date / Time ciprofloxacin [From Cipro] Allergy RASH Verified 10/23/17 08:24 ciprofloxacin HCl Allergy RASH Verified 10/23/17 08:24 [From Cipro] Physical Exam - Constitutional Appears: No Acute Distress, Chronically Ill - Head Exam Head Exam: NORMAL INSPECTION - Eye Exam Eye Exam: PERRL - ENT Exam ENT Exam: Normal Oropharynx - Neck Exam Neck exam: Positive for: Normal Inspection - Respiratory Exam Respiratory Exam: NORMAL BREATHING PATTERN - Cardiovascular Exam Cardiovascular Exam: Bradycardia - GI/Abdominal Exam GI & Abdominal Exam: Normal Bowel Sounds, Soft - Extremities Exam Additional comments: Paralysis L/E, R-L foot droop - Back Exam Additional comments: Healed sacral ulcer - Neurological Exam Neurological exam: Alert, CN II-XII Intact Additional comments: O x2, Paraplegia lower extremities, generalized weakness, - Skin Skin Exam: Warm Results - Vital Signs Recent Vital Signs: Last Vital Signs Temp 98.4 F 05/10/18 07:53 Pulse 56 L 05/10/18 07:53 Resp 18 05/10/18 07:53 BP 107/54 L 05/10/18 07:53 Pulse Ox 97 05/10/18 07:53 reviewed Srinivasan - Labs Result Diagrams: 05/11/18 05:30 05/11/18 05:30 Labs: Laboratory Results - last 24 hr 05/09/18 05/09/18 05/09/18 15:25 15:25 15:25 WBC 6.9 RBC 3.56 L Hgb 11.7 L Hct 35.4 MCV 99.3 H MCH 33.0 H MCHC 33.2 RDW 13.1 Plt Count 159 MPV 9.5 Neut % (Auto) 68.6 Lymph % (Auto) 18.8 L Crowley % (Auto) 8.4 Eos % (Auto) 3.3 Baso % (Auto) 0.9 Neut # (Auto) 4.7 Lymph # (Auto) 1.3 Crowley # (Auto) 0.6 Eos # (Auto) 0.2 Baso # (Auto) 0.1 PT INR APTT Sodium 140 Potassium 5.5 H Chloride 107 Carbon Dioxide 24 Anion Gap 15 BUN 25 H Creatinine 1.1 Est GFR ( Amer) 58 Est GFR (Non-Af Amer) 48 POC Glucose (mg/dL) Random Glucose 122 H Hemoglobin A1c Lactic Acid 1.1 Calcium 8.8 Phosphorus 4.2 Magnesium 3.0 H Total Bilirubin 0.6 AST 31 ALT 35 Alkaline Phosphatase 72 Troponin I < 0.0120 NT-Pro-B Natriuret Pep 649 Total Protein 7.1 Albumin 4.1 Globulin 3.0 Albumin/Globulin Ratio 1.4 Triglycerides Cholesterol LDL Cholesterol Direct HDL Cholesterol Lipase 113 Free T4 Thyroxine (T4) Total T3 0.860 L TSH 3rd Generation 1.87 Urine Color Urine Clarity Urine pH Ur Specific [place] Urine Protein Urine Glucose (UA) Urine Ketones Urine Blood Urine Nitrate Urine Bilirubin Urine Urobilinogen Ur Leukocyte Esterase Urine RBC (Auto) Urine WBC Clumps (Auto) Urine Microscopic WBC Ur Squamous Epith Cells Urine Bacteria C. difficile Ag & Toxin Blood Type Antibody Screen BBK History Checked 05/09/18 05/09/18 05/09/18 15:25 15:25 16:00 WBC RBC Hgb Hct MCV MCH MCHC RDW Plt Count MPV Neut % (Auto) Lymph % (Auto) Crowley % (Auto) Eos % (Auto) Baso % (Auto) Neut # (Auto) Lymph # (Auto) Crowley # (Auto) Eos # (Auto) Baso # (Auto) PT 10.8 INR 1.0 APTT 35.6 Sodium Potassium Chloride Carbon Dioxide Anion Gap BUN Creatinine Est GFR ( Amer) Est GFR (Non-Af Amer) POC Glucose (mg/dL) Random Glucose Hemoglobin A1c Lactic Acid Calcium Phosphorus Magnesium Total Bilirubin AST ALT Alkaline Phosphatase Troponin I NT-Pro-B Natriuret Pep Total Protein Albumin Globulin Albumin/Globulin Ratio Triglycerides Cholesterol LDL Cholesterol Direct HDL Cholesterol Lipase Free T4 1.18 Thyroxine (T4) Total T3 TSH 3rd Generation Urine Color Urine Clarity Urine pH Ur Specific [place] Urine Protein Urine Glucose (UA) Urine Ketones Urine Blood Urine Nitrate Urine Bilirubin Urine Urobilinogen Ur Leukocyte Esterase Urine RBC (Auto) Urine WBC Clumps (Auto) Urine Microscopic WBC Ur Squamous Epith Cells Urine Bacteria C. difficile Ag & Toxin Blood Type Cancelled Antibody Screen Cancelled BBK History Checked Cancelled 05/09/18 05/09/18 05/09/18 16:00 16:09 16:17 WBC RBC Hgb Hct MCV MCH MCHC RDW Plt Count MPV Neut % (Auto) Lymph % (Auto) Crowley % (Auto) Eos % (Auto) Baso % (Auto) Neut # (Auto) Lymph # (Auto) Crowley # (Auto) Eos # (Auto) Baso # (Auto) PT INR APTT Sodium Potassium Chloride Carbon Dioxide Anion Gap BUN Creatinine Est GFR ( Amer) Est GFR (Non-Af Amer) POC Glucose (mg/dL) Random Glucose Hemoglobin A1c Lactic Acid Calcium Phosphorus Magnesium Total Bilirubin AST ALT Alkaline Phosphatase Troponin I NT-Pro-B Natriuret Pep Total Protein Albumin Globulin Albumin/Globulin Ratio Triglycerides Cholesterol LDL Cholesterol Direct HDL Cholesterol Lipase Free T4 Thyroxine (T4) Total T3 TSH 3rd Generation Urine Color Anna Urine Clarity Turbid Urine pH 7.0 Ur Specific [place] 1.014 Urine Protein 100 Urine Glucose (UA) Neg Urine Ketones Negative Urine Blood Moderate Urine Nitrate Negative Urine Bilirubin Negative Urine Urobilinogen 0.2-1.0 Ur Leukocyte Esterase Mod Urine RBC (Auto) 69 H Urine WBC Clumps (Auto) Many H Urine Microscopic WBC 522 H Ur Squamous Epith Cells 1 Urine Bacteria Few H C. difficile Ag & Toxin Negative Blood Type A NEGATIVE Antibody Screen Negative BBK History Checked Patient has bt 05/09/18 05/09/18 05/10/18 20:53 22:41 05:35 WBC 5.3 RBC 3.20 L Hgb 10.5 L Hct 32.3 L MCV 100.7 H MCH 32.9 H MCHC 32.6 L RDW 13.0 Plt Count 149 MPV Neut % (Auto) Lymph % (Auto) Crowley % (Auto) Eos % (Auto) Baso % (Auto) Neut # (Auto) Lymph # (Auto) Crowley # (Auto) Eos # (Auto) Baso # (Auto) PT INR APTT Sodium Potassium Chloride Carbon Dioxide Anion Gap BUN Creatinine Est GFR ( Amer) Est GFR (Non-Af Amer) POC Glucose (mg/dL) 175 H 172 H Random Glucose Hemoglobin A1c Lactic Acid Calcium Phosphorus Magnesium Total Bilirubin AST ALT Alkaline Phosphatase Troponin I NT-Pro-B Natriuret Pep Total Protein Albumin Globulin Albumin/Globulin Ratio Triglycerides Cholesterol LDL Cholesterol Direct HDL Cholesterol Lipase Free T4 Thyroxine (T4) Total T3 TSH 3rd Generation Urine Color Urine Clarity Urine pH Ur Specific [place] Urine Protein Urine Glucose (UA) Urine Ketones Urine Blood Urine Nitrate Urine Bilirubin Urine Urobilinogen Ur Leukocyte Esterase Urine RBC (Auto) Urine WBC Clumps (Auto) Urine Microscopic WBC Ur Squamous Epith Cells Urine Bacteria C. difficile Ag & Toxin Blood Type Antibody Screen BBK History Checked 05/10/18 05/10/18 05/10/18 05:35 05:35 05:36 WBC RBC Hgb Hct MCV MCH MCHC RDW Plt Count MPV Neut % (Auto) Lymph % (Auto) Crowley % (Auto) Eos % (Auto) Baso % (Auto) Neut # (Auto) Lymph # (Auto) Crowley # (Auto) Eos # (Auto) Baso # (Auto) PT INR APTT Sodium 139 Potassium 5.4 H Chloride 111 H Carbon Dioxide 22 Anion Gap 11 BUN 23 H Creatinine 1.1 Est GFR ( Amer) 58 Est GFR (Non-Af Amer) 48 POC Glucose (mg/dL) 112 H Random Glucose 115 H Hemoglobin A1c 6.4 Lactic Acid Calcium 8.3 L Phosphorus Magnesium Total Bilirubin 0.4 AST 23 ALT 30 Alkaline Phosphatase 66 Troponin I NT-Pro-B Natriuret Pep Total Protein 6.3 Albumin 3.6 Globulin 2.7 Albumin/Globulin Ratio 1.3 Triglycerides 170 H D Cholesterol 110 LDL Cholesterol Direct 48 HDL Cholesterol 21 L Lipase Free T4 Thyroxine (T4) 9.08 Total T3 0.793 L TSH 3rd Generation 0.90 Urine Color Urine Clarity Urine pH Ur Specific [place] Urine Protein Urine Glucose (UA) Urine Ketones Urine Blood Urine Nitrate Urine Bilirubin Urine Urobilinogen Ur Leukocyte Esterase Urine RBC (Auto) Urine WBC Clumps (Auto) Urine Microscopic WBC Ur Squamous Epith Cells Urine Bacteria C. difficile Ag & Toxin Blood Type Antibody Screen BBK History Checked 05/10/18 10:59 WBC RBC Hgb Hct MCV MCH MCHC RDW Plt Count MPV Neut % (Auto) Lymph % (Auto) Crowley % (Auto) Eos % (Auto) Baso % (Auto) Neut # (Auto) Lymph # (Auto) Crowley # (Auto) Eos # (Auto) Baso # (Auto) PT INR APTT Sodium Potassium Chloride Carbon Dioxide Anion Gap BUN Creatinine Est GFR ( Amer) Est GFR (Non-Af Amer) POC Glucose (mg/dL) 199 H Random Glucose Hemoglobin A1c Lactic Acid Calcium Phosphorus Magnesium Total Bilirubin AST ALT Alkaline Phosphatase Troponin I NT-Pro-B Natriuret Pep Total Protein Albumin Globulin Albumin/Globulin Ratio Triglycerides Cholesterol LDL Cholesterol Direct HDL Cholesterol Lipase Free T4 Thyroxine (T4) Total T3 TSH 3rd Generation Urine Color Urine Clarity Urine pH Ur Specific [place] Urine Protein Urine Glucose (UA) Urine Ketones Urine Blood Urine Nitrate Urine Bilirubin Urine Urobilinogen Ur Leukocyte Esterase Urine RBC (Auto) Urine WBC Clumps (Auto) Urine Microscopic WBC Ur Squamous Epith Cells Urine Bacteria C. difficile Ag & Toxin Blood Type Antibody Screen BBK History Checked reviewed J.P. - EKG Data EKG comments: reviewed J.P. Assessment & Plan (1) UTI (urinary tract infection) Status: Acute Priority: High (2) Dehydration Status: Acute (3) Hypotension Status: Acute Priority: High (4) Devic's disease Status: Chronic Priority: High (5) Chronic paraplegia Status: Chronic Priority: High (6) General weakness Status: Acute Priority: High (7) DM II (diabetes mellitus, type II), controlled Status: Chronic Priority: Medium (8) Paralysis of lower limb Status: Chronic Priority: High (9) Hypothyroidism Status: Chronic Priority: Medium (10) Chronic constipation Status: Chronic Priority: Medium (11) Gastritis Status: Chronic Priority: Low (12) Dyslipidemia Status: Chronic Priority: Low (13) Dementia Status: Chronic Priority: Medium - Assessment and Plan (Free Text) Plan: IVF, Rocephin, Insulin, Lipitor, Fentanyl, Heparine, Synthroid, OT/PT eval. - Date & Time Date: 05/10/18
[2018-05-10] MEDS: Lubricant Eye Drops UD OU SCH ×3 (12:43→17:14)
[2018-05-10] MEDS: Amylase/Lipase/Protease 5,000 Units ECC PO SCH ×3 (12:43→17:14)
[2018-05-10] MEDS: Calcium-Vit D 500 mg-200 Units Tab UD PO SCH (21:33)
[2018-05-10] MEDS: Pantoprazole 20 mg EC Tab PO SCH (21:38)
[2018-05-11] MEDS: Levothyroxine 75 MCG TAB PO SCH (06:41)
[2018-05-11 07:22] LABS: MEAN CELL VOLUME 99.1 fl (81.0-99.0); MEAN CORPUSCULAR HEMOGLOBIN 32.7 pg (27.0-31.0); RBC 3.04 Mil/uL (3.80-5.20); RED CELL DISTRIBUTION WIDTH 12.9 % (11.5-14.5)
[2018-05-11] MEDS: Insulin Lispro (humaLOG) 100 Units/ml Inj SC SCH ×5 (07:30→22:32)
[2018-05-11 08:20] LABS: BLOOD UREA NITROGEN 12 mg/dl (7-17); CALCIUM 7.8 mg/dL (8.4-10.2); GFR NON-AFRICAN AMERICAN > 60
[2018-05-11] MEDS: Amylase/Lipase/Protease 5,000 Units ECC PO SCH ×3 (09:02→16:38)
[2018-05-11] MEDS: Omega-3-Acid Ethyl Esters 1 GM Cap PO SCH ×2 (09:02→16:38)
[2018-05-11] MEDS: Multivitamin With Minerals Tab PO SCH (09:02)
[2018-05-11] MEDS: Dorzolamide 2% Ophth Soln OU SCH ×3 (09:02→16:41)
[2018-05-11] MEDS: Lubricant Eye Drops UD OU SCH ×3 (09:05→16:40)
[2018-05-11] MEDS: POLYETHYLENE GLYCOL 3350 17 GM/Dose PACKET PO SCH (09:06)
--- NOTE | 2018-05-11 13:25 | CP.PCM.PN ---
Subjective - Subjective Subjective: loose BM, tolerating diet well Objective - Vital Signs/Intake and Output Vital Signs (last 24 hours): Temp Pulse Resp BP Pulse Ox 98.5 F 57 L 18 121/65 98 05/11/18 08:54 05/11/18 08:54 05/11/18 08:54 05/11/18 08:54 05/11/18 08:54 Intake and Output: 05/11/18 05/11/18 06:59 18:59 Intake Total 1720 Output Total 1620 Balance 100 - Medications Medications: Current Medications Acetaminophen (Tylenol 325mg Tab) 650 mg PO Q4 PRN PRN Reason: Pain, Mild (1-3) Amylase (Pancrease 28125 U-5000 U-01395 U) 10,000 unit PO TID [facility] Last Admin: 05/11/18 12:45 Dose: 10,000 unit Artificial Tears (Refresh Opth Soln) 0.3 ml OU TID [facility] Last Admin: 05/11/18 12:45 Dose: 1 drop Ascorbic Acid (Vitamin C 500 Mg Tab) 500 mg PO DAILY [facility] Last Admin: 05/11/18 09:04 Dose: 500 mg Atorvastatin Calcium (Lipitor) 10 mg PO HS [facility] Last Admin: 05/10/18 21:35 Dose: 10 mg Bisacodyl (Dulcolax) 10 mg NJ Q2D PRN PRN Reason: Constipation Calcium/Vitamin D (Oyster Shell Calcium/Vitamin D 500 Mg-200 Iu) 1 tab PO QPM [facility] Last Admin: 05/10/18 21:33 Dose: 1 tab Dextrose (Dextrose 50% Inj) 0 ml IV STAT PRN; Protocol PRN Reason: Hypoglycemia Protocol Dextrose (Glutose 15) 0 gm PO ONCE PRN; Protocol PRN Reason: Hypoglycemia Protocol Docusate Sodium (Colace) 200 mg PO HS [facility] Last Admin: 05/10/18 21:37 Dose: Not Given Dorzolamide HCl (Trusopt) 1 drop OU TID [facility] Last Admin: 05/11/18 12:45 Dose: 1 drop Ezetimibe (Zetia) 10 mg PO HS [facility] Last Admin: 05/10/18 22:45 Dose: 10 mg Enalapril Maleate (Vasotec) 10 mg PO DAILY [facility] Last Admin: 05/10/18 09:48 Dose: Not Given Fentanyl (Duragesic) 1 patch TD Q72H [facility] PRN Reason: Protocol Last Admin: 05/09/18 22:56 Dose: 1 patch Fluocinonide (Lidex 0.05% Cream) 1 applic TOP BID [facility] Last Admin: 05/11/18 09:02 Dose: 1 applic Gabapentin (Neurontin) 300 mg PO TID [facility] Last Admin: 05/11/18 12:45 Dose: 300 mg Glucagon (Glucagen Diagnostic Kit) 0 mg IM STAT PRN; Protocol PRN Reason: Hypoglycemia Protocol Heparin Sodium (Porcine) (Heparin) 5,000 units SC Q12 [facility] PRN Reason: Protocol Last Admin: 05/11/18 09:03 Dose: 5,000 units Ceftriaxone Sodium 1 gm/ (Sodium Chloride) 100 mls @ 100 mls/hr IVPB DAILY [facility] PRN Reason: Protocol Last Admin: 05/11/18 09:05 Dose: 100 mls/hr Insulin Human Lispro (Humalog) 4 units SC DIN [facility] Last Admin: 05/10/18 17:12 Dose: 4 units Insulin Human Lispro (Humalog) 0 units SC ACHS [facility] PRN Reason: Protocol Last Admin: 05/11/18 12:46 Dose: 1 unit Lactulose (Enulose) 20 gm PO HS [facility] Last Admin: 05/10/18 21:36 Dose: Not Given Levothyroxine Sodium (Synthroid) 75 mcg PO DAILY@0630 [facility] Last Admin: 05/11/18 06:41 Dose: 75 mcg Magnesium Hydroxide (Milk Of Magnesia) 30 ml PO MWF [facility] Last Admin: 05/10/18 09:49 Dose: 30 ml Multivitamins/Minerals (Therapeutic-M Tab) 1 tab PO DAILY [facility] Last Admin: 05/11/18 09:02 Dose: 1 tab [id number] Ethyl Esters (Lovaza) 2 gm PO BID [facility] Last Admin: 05/11/18 09:02 Dose: 2 gm Ondansetron HCl (Zofran Tab) 8 mg PO Q8H PRN PRN Reason: Nausea/Vomiting Pantoprazole Sodium (Protonix Ec Tab) 20 mg PO QPM [facility] Last Admin: 05/10/18 21:38 Dose: 20 mg Polyethylene Glycol (Miralax) 17 gm PO DAILY [facility] Last Admin: 05/11/18 09:06 Dose: Not Given Prochlorperazine (Compazine Rectal Supp) 25 mg NJ Q12H PRN PRN Reason: Nausea/Vomiting Simethicone (Mylicon Chew Tab) 160 mg PO TID PRN PRN Reason: GAS Sitagliptin Phosphate (Januvia) 50 mg PO DAILY [facility] Last Admin: 05/11/18 09:04 Dose: 50 mg - Labs Labs: 05/11/18 05:30 05/11/18 05:30 PT 10.8 Seconds (9.8-13.1) 05/09/18 15:25 INR 1.0 05/09/18 15:25 APTT 35.6 Seconds (25.6-37.1) 05/09/18 15:25 - Constitutional Appears: No Acute Distress - Head Exam Head Exam: NORMAL INSPECTION - Eye Exam Eye Exam: PERRL - ENT Exam ENT Exam: Normal Exam - Neck Exam Neck Exam: Normal Inspection - Respiratory Exam Respiratory Exam: Decreased Breath Sounds (at bases), Wheezes (few scattered) - Cardiovascular Exam Cardiovascular Exam: REGULAR RHYTHM - GI/Abdominal Exam GI & Abdominal Exam: Soft, Normal Bowel Sounds - Extremities Exam Extremities Exam: Normal Inspection, Tenderness (R L shoulders) - Back Exam Back Exam: tenderness - Neurological Exam Neurological Exam: Alert, CN II-XII Intact Additional comments: paraplegic - Psychiatric Exam Psychiatric exam: Anxious - Skin Skin Exam: Warm Assessment and Plan (1) UTI (urinary tract infection) Assessment & Plan: E Coli Status: Acute (2) Dehydration Status: Resolved (3) Hypotension Status: Resolved (4) Devic's disease Status: Chronic (5) Chronic paraplegia Status: Chronic (6) General weakness Status: Acute (7) DM II (diabetes mellitus, type II), controlled Status: Chronic (8) Paralysis of lower limb Status: Chronic (9) Hypothyroidism Status: Chronic (10) Chronic constipation Status: Chronic (11) Gastritis Status: Chronic (12) Dyslipidemia Status: Chronic (13) Dementia Status: Chronic - Assessment and Plan (Free Text) Plan: continue Rocephin, Fentanyl, Humalog and rest of treatment
[2018-05-11] MEDS: Calcium-Vit D 500 mg-200 Units Tab UD PO SCH (17:22)
[2018-05-11] MEDS: Pantoprazole 20 mg EC Tab PO SCH (17:22)
[2018-05-12] MEDS: Levothyroxine 75 MCG TAB PO SCH (06:44)
[2018-05-12] MEDS: Insulin Lispro (humaLOG) 100 Units/ml Inj SC SCH ×5 (06:45→22:00)
[2018-05-12] MEDS: Omega-3-Acid Ethyl Esters 1 GM Cap PO SCH ×2 (08:38→16:44)
[2018-05-12] MEDS: POLYETHYLENE GLYCOL 3350 17 GM/Dose PACKET PO SCH (08:39)
[2018-05-12] MEDS: Dorzolamide 2% Ophth Soln OU SCH ×3 (08:40→16:49)
[2018-05-12] MEDS: Amylase/Lipase/Protease 5,000 Units ECC PO SCH ×3 (08:40→16:46)
[2018-05-12] MEDS: Multivitamin With Minerals Tab PO SCH (08:41)
[2018-05-12] MEDS: Lubricant Eye Drops UD OU SCH ×3 (09:00→16:48)
--- NOTE | 2018-05-12 15:24 | CP.PCM.PN ---
Subjective - Subjective Subjective: generalized pain, more prominent in shoulders, occasional nausea, incontinent urine and feces Objective - Vital Signs/Intake and Output Vital Signs (last 24 hours): Temp Pulse Resp BP Pulse Ox 98.9 F 57 L 20 157/70 H 95 05/12/18 08:53 05/12/18 08:53 05/12/18 08:53 05/12/18 08:53 05/12/18 08:53 - Medications Medications: Current Medications Acetaminophen (Tylenol 325mg Tab) 650 mg PO Q4 PRN PRN Reason: Pain, Mild (1-3) Last Admin: 05/12/18 02:25 Dose: 650 mg Amylase (Pancrease 21480 U-5000 U-99408 U) 10,000 unit PO TID [facility] Last Admin: 05/12/18 08:40 Dose: 10,000 unit Artificial Tears (Refresh Opth Soln) 0.3 ml OU TID [facility] Last Admin: 05/11/18 16:40 Dose: 1 drop Ascorbic Acid (Vitamin C 500 Mg Tab) 500 mg PO DAILY [facility] Last Admin: 05/11/18 09:04 Dose: 500 mg Atorvastatin Calcium (Lipitor) 10 mg PO HS [facility] Last Admin: 05/11/18 21:03 Dose: 10 mg Bisacodyl (Dulcolax) 10 mg ID Q2D PRN PRN Reason: Constipation Calcium/Vitamin D (Oyster Shell Calcium/Vitamin D 500 Mg-200 Iu) 1 tab PO QPM [facility] Last Admin: 05/11/18 17:22 Dose: 1 tab Dextrose (Dextrose 50% Inj) 0 ml IV STAT PRN; Protocol PRN Reason: Hypoglycemia Protocol Dextrose (Glutose 15) 0 gm PO ONCE PRN; Protocol PRN Reason: Hypoglycemia Protocol Docusate Sodium (Colace) 200 mg PO [facility] Last Admin: 05/11/18 21:01 Dose: 200 mg Dorzolamide HCl (Trusopt) 1 drop OU TID [facility] Last Admin: 05/12/18 08:40 Dose: 1 drop Ezetimibe (Zetia) 10 mg PO HS [facility] Last Admin: 05/11/18 21:04 Dose: 10 mg Enalapril Maleate (Vasotec) 10 mg PO DAILY [facility] Last Admin: 05/10/18 09:48 Dose: Not Given Fentanyl (Duragesic) 1 patch TD Q72H [facility] PRN Reason: Protocol Last Admin: 05/09/18 22:56 Dose: 1 patch Fluocinonide (Lidex 0.05% Cream) 1 applic TOP BID [facility] Last Admin: 05/12/18 08:38 Dose: 1 applic Gabapentin (Neurontin) 300 mg PO TID [facility] Last Admin: 05/12/18 08:39 Dose: 300 mg Glucagon (Glucagen Diagnostic Kit) 0 mg IM STAT PRN; Protocol PRN Reason: Hypoglycemia Protocol Heparin Sodium (Porcine) (Heparin) 5,000 units SC Q12 [facility] PRN Reason: Protocol Last Admin: 05/12/18 08:34 Dose: 5,000 units Ceftriaxone Sodium 1 gm/ (Sodium Chloride) 100 mls @ 100 mls/hr IVPB DAILY [facility] PRN Reason: Protocol Last Admin: 05/12/18 08:49 Dose: 100 mls/hr Insulin Human Lispro (Humalog) 4 units SC DIN [facility] Last Admin: 05/11/18 16:41 Dose: 4 units Insulin Human Lispro (Humalog) 0 units SC ACHS [facility] PRN Reason: Protocol Last Admin: 05/12/18 06:45 Dose: Not Given Lactulose (Enulose) 20 gm PO HS [facility] Last Admin: 05/11/18 21:02 Dose: Not Given Levothyroxine Sodium (Synthroid) 75 mcg PO DAILY@0630 [facility] Last Admin: 05/12/18 06:44 Dose: 75 mcg Magnesium Hydroxide (Milk Of Magnesia) 30 ml PO MWF [facility] Last Admin: 05/10/18 09:49 Dose: 30 ml Multivitamins/Minerals (Therapeutic-M Tab) 1 tab PO DAILY [facility] Last Admin: 05/12/18 08:41 Dose: 1 tab [id number] Ethyl Esters (Lovaza) 2 gm PO BID [facility] Last Admin: 05/12/18 08:38 Dose: 2 gm Ondansetron HCl (Zofran Tab) 8 mg PO Q8H PRN PRN Reason: Nausea/Vomiting Last Admin: 05/12/18 06:44 Dose: 8 mg Pantoprazole Sodium (Protonix Ec Tab) 20 mg PO QPM [facility] Last Admin: 05/11/18 17:22 Dose: 20 mg Polyethylene Glycol (Miralax) 17 gm PO DAILY [facility] Last Admin: 05/12/18 08:39 Dose: 17 gm Prochlorperazine (Compazine Rectal Supp) 25 mg ID Q12H PRN PRN Reason: Nausea/Vomiting Simethicone (Mylicon Chew Tab) 160 mg PO TID PRN PRN Reason: GAS Sitagliptin Phosphate (Januvia) 50 mg PO DAILY [facility] Last Admin: 05/12/18 08:37 Dose: 50 mg - Labs Labs: 05/11/18 05:30 05/11/18 05:30 PT 10.8 Seconds (9.8-13.1) 05/09/18 15:25 INR 1.0 05/09/18 15:25 APTT 35.6 Seconds (25.6-37.1) 05/09/18 15:25 - Constitutional Appears: Chronically Ill - Head Exam Head Exam: NORMAL INSPECTION - Eye Exam Eye Exam: PERRL - ENT Exam ENT Exam: Normal Exam - Neck Exam Neck Exam: Tenderness - Respiratory Exam Respiratory Exam: Clear to Ausculation Bilateral - Cardiovascular Exam Cardiovascular Exam: REGULAR RHYTHM - GI/Abdominal Exam GI & Abdominal Exam: Soft, Normal Bowel Sounds - Extremities Exam Extremities Exam: Tenderness (R L shoulders) - Back Exam Back Exam: tenderness Additional comments: upper back - Neurological Exam Neurological Exam: Alert, CN II-XII Intact Additional comments: Paraplegic - Psychiatric Exam Psychiatric exam: Anxious, Depressed - Skin Skin Exam: Warm Assessment and Plan (1) UTI (urinary tract infection) Status: Acute (2) Dehydration Status: Resolved (3) Hypotension Status: Resolved (4) Devic's disease Status: Chronic (5) Chronic paraplegia Status: Chronic (6) General weakness Status: Acute (7) DM II (diabetes mellitus, type II), controlled Status: Chronic (8) Paralysis of lower limb Status: Chronic (9) Hypothyroidism Status: Chronic (10) Chronic constipation Status: Chronic (11) Gastritis Status: Chronic (12) Dyslipidemia Status: Chronic (13) Dementia Status: Chronic - Assessment and Plan (Free Text) Plan: continue Rocephin, Fentanyl, Humalog, Heparin
[2018-05-12] MEDS: Calcium-Vit D 500 mg-200 Units Tab UD PO SCH (17:13)
[2018-05-12] MEDS: Pantoprazole 20 mg EC Tab PO SCH (18:00)
[2018-05-12 23:33] VITALS: PULSE 53
[2018-05-13] MEDS: Levothyroxine 75 MCG TAB PO SCH (06:30)
[2018-05-13] MEDS: Insulin Lispro (humaLOG) 100 Units/ml Inj SC SCH (06:35)
[2018-05-13 08:12] VITALS: BP 139/62; RESP 18; TEMP 97.9; O2SAT 96
[2018-05-13] MEDS: Omega-3-Acid Ethyl Esters 1 GM Cap PO SCH (09:00)
[2018-05-13] MEDS: Magnesium Hydroxide Susp 30 ml UD PO SCH (09:06)
[2018-05-13] MEDS: POLYETHYLENE GLYCOL 3350 17 GM/Dose PACKET PO SCH (09:06)
[2018-05-13] MEDS: Amylase/Lipase/Protease 5,000 Units ECC PO SCH (09:06)
[2018-05-13] MEDS: Multivitamin With Minerals Tab PO SCH (09:08)
[2018-05-13] MEDS: Dorzolamide 2% Ophth Soln OU SCH (09:10)
--- NOTE | 2018-05-13 11:52 | CP.PCM.DIS ---
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 Priority: High (9) Hypothyroidism Status: Chronic Priority: Medium (10) Chronic constipation Status: Chronic Priority: Medium (11) Gastritis Status: Chronic Priority: Low (12) Dyslipidemia Status: Chronic Priority: Low (13) Dementia Status: Chronic Priority: Medium Hospital Course - Lab Results Lab Results: Micro Results 05/09/18 15:55 Blood Blood Culture - Preliminary NO GROWTH AFTER 3 DAYS 05/09/18 15:51 Blood Blood Culture - Preliminary NO GROWTH AFTER 3 DAYS 05/09/18 16:17 Urine,Barone Urine Culture - Final Escherichia Coli 05/09/18 18:07 Stool Stool Culture - Final NO SALMONELLA, SHIGELLA OR CAMPYLOBACTER ISOLATED. 05/09/18 18:07 Stool Ova and Parasite Concentrate Exam - Final Most Recent Lab Values WBC 5.0 K/uL (4.8-10.8) 05/11/18 05:30 RBC 3.04 Mil/uL (3.80-5.20) L 05/11/18 05:30 Hgb 10.0 g/dL (12.0-16.0) L 05/11/18 05:30 Hct 30.2 % (34.0-47.0) L 05/11/18 05:30 MCV 99.1 fl (81.0-99.0) H 05/11/18 05:30 MCH 32.7 pg (27.0-31.0) H 05/11/18 05:30 MCHC 33.0 g/dL (33.0-37.0) 05/11/18 05:30 RDW 12.9 % (11.5-14.5) 05/11/18 05:30 Plt Count 137 K/uL (130-400) 05/11/18 05:30 MPV 9.5 fl (7.2-11.7) 05/09/18 15:25 Neut % (Auto) 68.6 % (50.0-75.0) 05/09/18 15:25 Lymph % (Auto) 18.8 % (20.0-40.0) L 05/09/18 15:25 [place] % (Auto) 8.4 % (0.0-10.0) 05/09/18 15:25 Eos % (Auto) 3.3 % (0.0-4.0) 05/09/18 15:25 Baso % (Auto) 0.9 % (0.0-2.0) 05/09/18 15:25 Neut # (Auto) 4.7 K/uL (1.8-7.0) 05/09/18 15:25 Lymph # (Auto) 1.3 K/uL (1.0-4.3) 05/09/18 15:25 [place] # (Auto) 0.6 K/uL (0.0-0.8) 05/09/18 15:25 Eos # (Auto) 0.2 K/uL (0.0-0.7) 05/09/18 15:25 Baso # (Auto) 0.1 K/uL (0.0-0.2) 05/09/18 15:25 PT 10.8 Seconds (9.8-13.1) 05/09/18 15:25 INR 1.0 05/09/18 15:25 APTT 35.6 Seconds (25.6-37.1) 05/09/18 15:25 Sodium 140 mmol/l (132-148) 05/11/18 05:30 Potassium 4.6 MMOL/L (3.6-5.0) 05/11/18 05:30 Chloride 113 mmol/L (98-107) H 05/11/18 05:30 Carbon Dioxide 25 mmol/L (22-30) 05/11/18 05:30 Anion Gap 7 (10-20) L 05/11/18 05:30 BUN 12 mg/dl (7-17) 05/11/18 05:30 Creatinine 0.8 mg/dl (0.7-1.2) 05/11/18 05:30 Est GFR ( Amer) > 60 05/11/18 05:30 Est GFR (Non-Af Amer) > 60 05/11/18 05:30 POC Glucose (mg/dL) 171 mg/dL (65-110) H 05/13/18 10:48 Random Glucose 103 mg/dL (65-105) 05/11/18 05:30 Hemoglobin A1c 6.4 % (4.2-6.5) 05/10/18 05:35 Lactic Acid 1.1 MMOL/L (0.7-2.1) 05/09/18 15:25 Calcium 7.8 mg/dL (8.4-10.2) L 05/11/18 05:30 Phosphorus 4.2 mg/dl (2.5-4.5) 05/09/18 15:25 Magnesium 3.0 MG/DL (1.6-2.3) H 05/09/18 15:25 Total Bilirubin 0.4 mg/dl (0.2-1.3) 05/10/18 05:35 AST 23 U/L (14-36) 05/10/18 05:35 ALT 30 U/L (9-52) 05/10/18 05:35 Alkaline Phosphatase 66 U/L (38-126) 05/10/18 05:35 Troponin I < 0.0120 ng/mL (0.00-0.120) 05/09/18 15:25 NT-Pro-B Natriuret Pep 649 pg/ml (0-900) 05/09/18 15:25 Total Protein 6.3 G/DL (6.3-8.2) 05/10/18 05:35 Albumin 3.6 g/dL (3.5-5.0) 05/10/18 05:35 Globulin 2.7 gm/dL (2.2-3.9) 05/10/18 05:35 Albumin/Globulin Ratio 1.3 (1.0-2.1) 05/10/18 05:35 Triglycerides 170 mg/DL (0-149) H D 05/10/18 05:35 Cholesterol 110 mg/dL (0-199) 05/10/18 05:35 LDL Cholesterol Direct 48 mg/dL (0-129) 05/10/18 05:35 HDL Cholesterol 21 MG/DL (30-70) L 05/10/18 05:35 Lipase 113 U/L (23-300) 05/09/18 15:25 Free T4 1.18 ng/dL (0.78-2.19) 05/09/18 16:00 Thyroxine (T4) 9.08 ug/dl (5.5-11.0) 05/10/18 05:35 Total T3 0.793 nmol/L (1.49-2.60) L 05/10/18 05:35 TSH 3rd Generation 0.90 mIU/ML (0.46-4.68) 05/10/18 05:35 Urine Color Anna (YELLOW) 05/09/18 16:17 Urine Clarity Turbid (Clear) 05/09/18 16:17 Urine pH 7.0 (5.0-8.0) 05/09/18 16:17 Ur Specific [place] 1.014 (1.003-1.030) 05/09/18 16:17 Urine Protein 100 mg/dL (NEGATIVE) 05/09/18 16:17 Urine Glucose (UA) Neg mg/dL (Normal) 05/09/18 16:17 Urine Ketones Negative mg/dL (NEGATIVE) 05/09/18 16:17 Urine Blood Moderate (NEGATIVE) 05/09/18 16:17 Urine Nitrate Negative (NEGATIVE) 05/09/18 16:17 Urine Bilirubin Negative (NEGATIVE) 05/09/18 16:17 Urine Urobilinogen 0.2-1.0 mg/dL (0.2-1.0) 05/09/18 16:17 Ur Leukocyte Esterase Mod Zaheer/uL (Negative) 05/09/18 16:17 Urine RBC (Auto) 69 /hpf (0-3) H 05/09/18 16:17 Urine WBC Clumps (Auto) Many /hpf (NONE) H 05/09/18 16:17 Urine Microscopic WBC 522 /hpf (0-5) H 05/09/18 16:17 Ur Squamous Epith Cells 1 /hpf (0-5) 05/09/18 16:17 Urine Bacteria Few (<OCC) H 05/09/18 16:17 C. difficile Ag & Toxin Negative (NEGATIVE) 05/09/18 16:09 Blood Type A NEGATIVE 05/09/18 16:00 Antibody Screen Negative 05/09/18 16:00 BBK History Checked Patient has bt 05/09/18 16:00 Discharge Exam - Head Exam Head Exam: NORMAL INSPECTION Discharge Plan - Discharge Medications Prescriptions: Cephalexin [cephalexin] 500 mg PO TID #21 cap - Follow Up Plan Condition: FAIR Disposition: TRANSF TO SNF
== END 2018-05-13 15:50 | DRG 690 ==
LOC: H.ER 14:45 → H.ERHOLD 17:09 → H.MEDSURG1 18:35 → OBSVTOIN 05-10 11:46
PROVIDERS: ADMIT Internal Medicine Pulmonary Disease; ATTEND Internal Medicine Pulmonary Disease
DX: N39.0 Urinary tract infection, site not specified (principal); G82.20 Paraplegia, unspecified; G36.0 Neuromyelitis optica [Devic]; E86.0 Dehydration; G35 Multiple sclerosis; Z66 Do not resuscitate; E11.9 Type 2 diabetes mellitus without complications; E03.9 Hypothyroidism, unspecified; K59.09 Other constipation; K29.50 Unspecified chronic gastritis without bleeding; E78.5 Hyperlipidemia, unspecified; F03.90 Unspecified dementia, unspecified severity, without behavioral disturbance, psychotic disturbance, mood disturbance, and anxiety; E78.00 Pure hypercholesterolemia, unspecified; I10 Essential (primary) hypertension; Z88.3 Allergy status to other anti-infective agents; G89.29 Other chronic pain; F41.9 Anxiety disorder, unspecified; M19.90 Unspecified osteoarthritis, unspecified site; F32.9 Major depressive disorder, single episode, unspecified; I95.9 Hypotension, unspecified; B96.20 Unspecified Escherichia coli [E. coli] as the cause of diseases classified elsewhere; R32 Unspecified urinary incontinence; R15.9 Full incontinence of feces

== ENCOUNTER 2018-06-05 10:16 | Observation (INO) | payer MEDICARE, MEDICAID ==
[2018-06-05] MEDS ORDERED: Simethicone 80 mg Chewtab PO PRN (12:08)
--- NOTE | 2018-06-05 12:10 | CP.PCM.PN ---
Subjective - Date & Time of Evaluation Date of Evaluation: 06/05/18 Time of Evaluation: 12:00 - Subjective Subjective: This is a 82 yrs old female who was diagnosed to have a Devics disease 4 yrs ago. She was initially treated with steroids but did not not respond , She was then started on rituximab and has been doing well since. She had a reaction to the rituxan when it was given by the usual rate. So it was given over 12 hrs and she did well. She is here for the rituxan treatment. No side effects seen so far. she appears a little fatigued. will ck the cbc She has a past h/o DM, HTN Was not a smoker and no alcohol abuse Objective - Medications Medications: Current Medications Acetaminophen (Tylenol 325mg Tab) 650 mg PO Q4 PRN PRN Reason: Pain, Mild (1-3) Ascorbic Acid (Vitamin C 500 Mg Tab) 500 mg PO DAILY ADY Atorvastatin Calcium (Lipitor) 10 mg PO HS ADY Bisacodyl (Dulcolax) 10 mg TN Q2D ADY Calcium/Vitamin D (Oyster Shell Calcium/Vitamin D 500 Mg-200 Iu) 1 tab PO QPM ADY Docusate Sodium (Colace) 200 mg PO HS ADY Dorzolamide HCl (Trusopt) 1 drop OU TID ADY Ezetimibe (Zetia) 10 mg PO HS ADY Enalapril Maleate (Vasotec) 10 mg PO DAILY ADY Fentanyl (Duragesic) 1 patch TD Q72H ADY PRN Reason: Protocol Gabapentin (Neurontin) 300 mg PO TID ADY Home Med (Linagliptin [Tradjenta]) 5 mg PO DAILY ADY Home Med (Lipase/Protease/Amylase [Creon Dr 24,000 Units Capsule]) 2 cap PO TID ADY Home Med (Mometasone 0.1% [Elocon Cream]) 1 appl TOP BID ADY Home Med (Multivitamin [One Daily Multivitamin]) 1 tab PO DAILY ADY Home Med (Propylene Glycol/Peg 400 [Systane Liquid Gel Eye Drops]) 1 drop OU TID ADY Home Med (Simethicone [Gas Relief]) 125 mg PO TID ADY Insulin Human Lispro (Humalog) 4 units SC DIN ADY Lactulose (Enulose) 20 gm PO HS ADY Levothyroxine Sodium (Synthroid) 75 mcg PO DAILY ADY Magnesium Hydroxide (Milk Of Magnesia) 30 ml PO MWF ADY Hijex-5-Mkpy Ethyl Esters (Lovaza) 2 gm PO BID ADY Ondansetron HCl (Zofran Tab) 8 mg PO Q8H PRN PRN Reason: Nausea/Vomiting Pantoprazole Sodium (Protonix Ec Tab) 20 mg PO QPM ADY Polyethylene Glycol (Miralax) 17 gm PO DAILY ADY Prochlorperazine (Compazine Rectal Supp) 25 mg TN Q12H PRN PRN Reason: Nausea/Vomiting - Additional Findings Additional findings: Physical exam; Alert,well oriented, in no acute distress, appears a little fatigued. Neck Supple, no adenopathy Chest; Clear,no rales or rhonchi heart; RSR, no murmur Abd; spft, no mass, no h/s megaly Assessment and Plan - Assessment and Plan (Free Text) Assessment: Impression; Elio disease Plan: Plan ; Will give her rituximab 375 mg /m2 over 12 hrs may be discharged tomorrow
--- NOTE | 2018-06-05 12:18 | CP.PCM.HP ---
History of Present Illness - History of Present Illness History of Present Illness: CC: Devic's Disease. 82 y/o F, [facility] Home resident, with multiple chronic medical conditions, including Deena's Disease, O/A, DMII, brought to [facility] today 06/05/18 to receive Ritusimab infusion Tx, that she received q 2 months. Worsening symptoms: Constipation, weakness. Aggravated factor: Movements. Pt denied: Fever, chills, n/v/d, abdominal pain, urinary symptoms, CP, palpitations, SOB, cough, sick contact. Present on Admission - Present on Admission Any Indicators Present on Admission: No Review of Systems - Constitutional Constitutional: Weakness - EENT Eyes: Requires Corrective Lenses Ears: Other (negative) Nose/Mouth/Throat: Other (negative) - Cardiovascular Cardiovascular: Other (negative) - Respiratory Respiratory: Other (negative) - Gastrointestinal Gastrointestinal: Other (negative) - Genitourinary Genitourinary: Urinary Incontinence - Musculoskeletal Musculoskeletal: Arthralgias - Integumentary Integumentary: Other (negative) - Neurological Neurological: Other (Paralysis BLE) - Psychiatric Psychiatric: Depression - Endocrine Endocrine: Other (negative) - Hematologic/Lymphatic Hematologic: Other (negative) Past Patient History - Tetanus Immunizations Tetanus Immunization: Unknown - Past Medical History & Family History Past Medical History?: Yes Pertinent Family History: Unknown - Past Social History Smoking Status: Never Smoked Alcohol: None Drugs: Denies Home Situation {Lives}: [facility] - CARDIAC Hx Cardiac Disorders: Yes (HTN,HLD) - PULMONARY Hx Respiratory Disorders: No Hx Chronic Obstructive Pulmonary Disease (COPD): No - NEUROLOGICAL Hx Neurological Disorder: Yes (MS) - HEENT Hx HEENT Problems: No - RENAL Hx Chronic Kidney Disease: No - ENDOCRINE/METABOLIC Hx Endocrine Disorders: Yes (DM2,HYPOTHYROID) - HEMATOLOGICAL/ONCOLOGICAL Hx Blood Disorders: No Hx AIDS: No Hx Human Immunodeficiency Virus (HIV): No - INTEGUMENTARY Hx Dermatological Problems: No - MUSCULOSKELETAL/RHEUMATOLOGICAL Hx Musculoskeletal Disorders: Yes (ARTHRITIS) Hx Arthritis: Yes Hx Falls: No - GASTROINTESTINAL Hx Gastrointestinal Disorders: Yes Hx Gastritis: Yes - GENITOURINARY/GYNECOLOGICAL Hx Genitourinary Disorders: Yes (UTI) - PSYCHIATRIC Hx Psychophysiologic Disorder: Yes (ANXIETY,DEPRESSION) Hx Substance Use: No - SURGICAL HISTORY Hx Surgeries: No - ANESTHESIA Hx Anesthesia: No Hx Anesthesia Reactions: No Hx Malignant Hyperthermia: No Meds Allergies/Adverse Reactions: Allergies Allergy/AdvReac Type Severity Reaction Status Date / Time ciprofloxacin [From Cipro] Allergy RASH Verified 10/23/17 08:24 ciprofloxacin HCl Allergy RASH Verified 10/23/17 08:24 [From Cipro] Physical Exam - Constitutional Appears: No Acute Distress, Chronically Ill - Head Exam Head Exam: NORMAL INSPECTION - Eye Exam Eye Exam: PERRL - ENT Exam ENT Exam: Normal Exam - Neck Exam Neck exam: Positive for: Normal Inspection - Respiratory Exam Respiratory Exam: NORMAL BREATHING PATTERN - Cardiovascular Exam Cardiovascular Exam: REGULAR RHYTHM - GI/Abdominal Exam GI & Abdominal Exam: Normal Bowel Sounds, Soft - Extremities Exam Additional comments: Paralysis BLE, R-L foot droop, L hand contracted - Back Exam Additional comments: Healed sacral wound - Neurological Exam Neurological exam: Alert, Oriented x3 Additional comments: Paraplegia, no movements or sensation in lower extremities, R-L foot droop - Psychiatric Exam Psychiatric exam: Depressed - Skin Skin Exam: Warm Results - Vital Signs Recent Vital Signs: reviewed J.P. - Labs Result Diagrams: 06/05/18 12:15 06/05/18 12:15 Labs: reviewed J.P. Assessment & Plan (1) Devic's disease Status: Chronic Priority: High (2) General weakness Status: Chronic Priority: High (3) Dementia Status: Chronic Priority: Medium (4) Depression Status: Chronic Priority: Medium (5) Diabetes mellitus Status: Chronic Priority: Medium (6) Dyslipidemia Status: Chronic Priority: Low (7) Constipation Status: Chronic Priority: Medium (8) Gastritis Status: Chronic Priority: Medium - Assessment and Plan (Free Text) Plan: For Rituximab today, continue Humalin, Lipitor, Neurontin, Prozac, Duragesic Patch, Protonix and rest of Tx. - Date & Time Date: 06/05/18 Time: 13:50
[2018-06-05 12:43] LABS: BASO % 0.9 % (0.0-2.0); EOS # 0.2 K/uL (0.0-0.7); EOS % 3.9 % (0.0-4.0); HEMOGLOBIN 10.5 g/dL (12.0-16.0); LYMPH # 0.9 K/uL (1.0-4.3); LYMPH % 18.7 % (20.0-40.0); MEAN CELL VOLUME 97.4 fl (81.0-99.0); MEAN CORPUSCULAR HGB CONC 33.8 g/dL (33.0-37.0); MEAN PLATELET VOLUME 8.7 fl (7.2-11.7); MONO # 0.6 K/uL (0.0-0.8); MONO % 12.6 % (0.0-10.0); NEUT # 2.9 K/uL (1.8-7.0); NEUT % 63.9 % (50.0-75.0); NRBC % 0.2 % (0.0-0.0); RBC 3.18 Mil/uL (3.80-5.20); RED CELL DISTRIBUTION WIDTH 13.1 % (11.5-14.5); WHITE BLOOD COUNT 4.6 K/uL (4.8-10.8)
[2018-06-05 12:50] LABS: ALB/GLOB RATIO 1.1 (1.0-2.1); ALBUMIN 3.4 g/dL (3.5-5.0); CALCIUM 8.6 mg/dL (8.4-10.2)
[2018-06-05] MEDS ORDERED: Dexamethasone 10 MG in Sodium Chloride 0.9% 50 ML IVPB ONE (13:00)
[2018-06-05] MEDS ORDERED: Acetaminophen 650mg/20.3ml solution UD PO ONE (13:00)
[2018-06-05] MEDS: Levothyroxine 75 MCG TAB PO SCH (13:12)
[2018-06-05] MEDS: Artificial Tears Opht Soln OU SCH ×2 (13:17→16:23)
[2018-06-05] MEDS: Dorzolamide 2% Ophth Soln OU SCH ×2 (13:18→16:24)
[2018-06-05] MEDS: POLYETHYLENE GLYCOL 3350 17 GM/Dose PACKET PO SCH (13:18)
[2018-06-05] MEDS: Multivitamin With Minerals Tab PO SCH (13:19)
[2018-06-05] MEDS ORDERED: Chlorhexidine Gluconate 1 APPL/PKT TP ONE (13:26)
[2018-06-05] MEDS ORDERED: SODIUM CHLORIDE 0.9% IV ONE (13:30)
[2018-06-05] MEDS ORDERED: RITUXIMAB IV ONE (13:30)
[2018-06-05] MEDS: Omega-3-Acid Ethyl Esters 1 GM Cap PO SCH (16:24)
[2018-06-05] MEDS ORDERED: MOMETASONE 0.1% TOP SCH (17:00)
[2018-06-05] MEDS ORDERED: APPL TOP SCH (17:00)
[2018-06-05] MEDS: Pantoprazole 20 mg EC Tab PO SCH (17:48)
[2018-06-05] MEDS: Insulin Lispro (humaLOG) 100 Units/ml Inj SC SCH (17:48)
[2018-06-05] MEDS: Calcium-Vit D 500 mg-200 Units Tab UD PO SCH (17:48)
[2018-06-05] MEDS: Sodium Chloride 0.9% 500 ML IV SCH (17:49)
[2018-06-06] MEDS: Sodium Chloride 0.9% 500 ML IV SCH ×3 (04:00→17:11)
[2018-06-06 07:04] LABS: BASO % 0.3 % (0.0-2.0); EOS % 0.1 % (0.0-4.0); HEMOGLOBIN 10.7 g/dL (12.0-16.0); LYMPH # 0.8 K/uL (1.0-4.3); LYMPH % 21.3 % (20.0-40.0); MEAN CELL VOLUME 97.6 fl (81.0-99.0); MEAN CORPUSCULAR HEMOGLOBIN 32.7 pg (27.0-31.0); MEAN CORPUSCULAR HGB CONC 33.5 g/dL (33.0-37.0); MEAN PLATELET VOLUME 8.2 fl (7.2-11.7); MONO # 0.5 K/uL (0.0-0.8); MONO % 13.8 % (0.0-10.0); NEUT # 2.4 K/uL (1.8-7.0); NEUT % 64.5 % (50.0-75.0); NRBC % 0.3 % (0.0-0.0); RBC 3.29 Mil/uL (3.80-5.20); RED CELL DISTRIBUTION WIDTH 13.4 % (11.5-14.5); WHITE BLOOD COUNT 3.7 K/uL (4.8-10.8)
[2018-06-06 07:26] LABS: ALB/GLOB RATIO 1.1 (1.0-2.1); ALBUMIN 3.6 g/dL (3.5-5.0); CALCIUM 9.1 mg/dL (8.4-10.2)
[2018-06-06 08:02] VITALS: RESP 20
[2018-06-06] MEDS: Dorzolamide 2% Ophth Soln OU SCH ×3 (08:58→16:20)
[2018-06-06] MEDS: Artificial Tears Opht Soln OU SCH ×3 (08:58→16:19)
[2018-06-06] MEDS: POLYETHYLENE GLYCOL 3350 17 GM/Dose PACKET PO SCH (08:59)
[2018-06-06] MEDS: Multivitamin With Minerals Tab PO SCH (09:00)
[2018-06-06] MEDS: Levothyroxine 75 MCG TAB PO SCH (09:00)
[2018-06-06] MEDS: Omega-3-Acid Ethyl Esters 1 GM Cap PO SCH (09:01)
[2018-06-06] MEDS ORDERED: Sod Polystyrene Sulf 15 gm/60 ml Susp PO ONE (10:11)
[2018-06-06 16:35] VITALS: BP 130/53; PULSE 51; TEMP 98.3; O2SAT 95
[2018-06-06] MEDS: Insulin Lispro (humaLOG) 100 Units/ml Inj SC SCH (17:10)
[2018-06-06] MEDS: Pantoprazole 20 mg EC Tab PO SCH (17:11)
[2018-06-06] MEDS: Calcium-Vit D 500 mg-200 Units Tab UD PO SCH (17:11)
[2018-06-07] MEDS ORDERED: Magnesium Hydroxide Susp 30 ml UD PO SCH (09:00)
== END 2018-06-06 23:30 ==
LOC: H.MEDSURG1 11:29 → INTOOBSV 11:29 → H.MEDSURG1 11:53
PROVIDERS: ADMIT Internal Medicine Pulmonary Disease; ATTEND Internal Medicine Pulmonary Disease
DX: G36.0 Neuromyelitis optica [Devic] (principal); F03.90 Unspecified dementia, unspecified severity, without behavioral disturbance, psychotic disturbance, mood disturbance, and anxiety; F32.9 Major depressive disorder, single episode, unspecified; E11.9 Type 2 diabetes mellitus without complications; E78.5 Hyperlipidemia, unspecified; K59.00 Constipation, unspecified; K29.50 Unspecified chronic gastritis without bleeding; I10 Essential (primary) hypertension; Z88.3 Allergy status to other anti-infective agents; R53.1 Weakness; E03.9 Hypothyroidism, unspecified
CPT/HCPCS: 36415; 80053; 82948; 83036; 85025; 96416; J1100; J1200; J2405; J7040; J9310

== ENCOUNTER 2018-08-06 10:53 | Observation (INO) | payer MEDICARE, MEDICAID ==
[2018-08-06] MEDS ORDERED: Sodium Chloride 0.9% 500 ML IV ONE (11:34)
[2018-08-06] MEDS ORDERED: Dexamethasone 10 MG in Sodium Chloride 0.9% 50 ML IVPB ONE (11:35)
[2018-08-06] MEDS ORDERED: Acetaminophen 650mg/20.3ml solution UD PO ONE (11:42)
[2018-08-06 12:44] LABS: BASO # 0.1 K/uL (0.0-0.2); EOS # 0.3 K/uL (0.0-0.7); EOS % 5.4 % (0.0-4.0); HEMOGLOBIN 10.6 g/dL (12.0-16.0); LYMPH # 1.5 K/uL (1.0-4.3); LYMPH % 27.1 % (20.0-40.0); MEAN CELL VOLUME 97.8 fl (81.0-99.0); MEAN CORPUSCULAR HEMOGLOBIN 31.3 pg (27.0-31.0); MEAN PLATELET VOLUME 9.7 fl (7.2-11.7); MONO # 0.6 K/uL (0.0-0.8); MONO % 10.3 % (0.0-10.0); NEUT # 3.1 K/uL (1.8-7.0); NEUT % 56.2 % (50.0-75.0); NRBC % 0.1 % (0.0-0.0); RBC 3.38 Mil/uL (3.80-5.20); RED CELL DISTRIBUTION WIDTH 13.7 % (11.5-14.5); WHITE BLOOD COUNT 5.5 K/uL (4.8-10.8)
[2018-08-06] MEDS ORDERED: SODIUM CHLORIDE 0.9% IV ONE (12:45)
[2018-08-06] MEDS ORDERED: RITUXIMAB IV ONE (12:45)
[2018-08-06 12:52] LABS: ALB/GLOB RATIO 1.2 (1.0-2.1); ALBUMIN 3.7 g/dL (3.5-5.0); CALCIUM 8.7 mg/dL (8.4-10.2)
--- NOTE | 2018-08-06 13:04 | CP.PCM.HP ---
History of Present Illness - History of Present Illness History of Present Illness: 83 y/o F, with multiple chronic medical condition likely: MS, O/A, DMII, HTN, COPD, resident at [facility], brought to [facility], via EMS, for Ritusimab infusion on DOA 2nd to Devic's Disease. Pt denied: Fever, chills, n/v/d, abdominal pain, CP, palpitations, SOB, cough, sick contact. Present on Admission - Present on Admission Any Indicators Present on Admission: No Review of Systems - Constitutional Constitutional: Weakness - EENT Eyes: Requires Corrective Lenses Ears: Other (negative) Nose/Mouth/Throat: Other (negative) - Cardiovascular Cardiovascular: Slow Heart Rate - Respiratory Respiratory: Other (negative) - Gastrointestinal Gastrointestinal: Other (negative) - Genitourinary Genitourinary: Urinary Incontinence - Musculoskeletal Musculoskeletal: Arthralgias - Integumentary Integumentary: Other (negative) - Neurological Neurological: Other (Paraplegia) - Psychiatric Psychiatric: Depression - Endocrine Endocrine: Other (negative) - Hematologic/Lymphatic Hematologic: Other (negative) Past Patient History - Tetanus Immunizations Tetanus Immunization: Unknown - Past Medical History & Family History Past Medical History?: Yes Pertinent Family History: Unknown - Past Social History Smoking Status: Never Smoked Alcohol: None Drugs: Denies Home Situation {Lives}: [facility] - CARDIAC Hx Cardiac Disorders: Yes (HTN,HLD) - PULMONARY Hx Respiratory Disorders: No Hx Chronic Obstructive Pulmonary Disease (COPD): No - NEUROLOGICAL Hx Neurological Disorder: Yes (MS) Hx Dementia: Yes Hx Multiple Sclerosis: Yes Other/Comment: Devic's Disease - HEENT Hx HEENT Problems: Yes Hx Glaucoma: Yes (L eye) - RENAL Hx Chronic Kidney Disease: No - ENDOCRINE/METABOLIC Hx Endocrine Disorders: Yes (DM2,HYPOTHYROID) - HEMATOLOGICAL/ONCOLOGICAL Hx Blood Disorders: Yes Hx AIDS: No Hx Chemotherapy: Yes Hx Human Immunodeficiency Virus (HIV): No Hx Shingles: Yes - INTEGUMENTARY Hx Dermatological Problems: No - MUSCULOSKELETAL/RHEUMATOLOGICAL Hx Musculoskeletal Disorders: Yes (ARTHRITIS) Hx Arthritis: Yes Hx Falls: No - GASTROINTESTINAL Hx Gastrointestinal Disorders: Yes Hx Gastritis: Yes - GENITOURINARY/GYNECOLOGICAL Hx Genitourinary Disorders: Yes (UTI) Hx Incontinence: Yes - PSYCHIATRIC Hx Psychophysiologic Disorder: Yes (ANXIETY,DEPRESSION) Hx Substance Use: No - SURGICAL HISTORY Hx Surgeries: No - ANESTHESIA Hx Anesthesia: No Hx Anesthesia Reactions: No Hx Malignant Hyperthermia: No Meds Allergies/Adverse Reactions: Allergies Allergy/AdvReac Type Severity Reaction Status Date / Time ciprofloxacin [From Cipro] Allergy RASH Verified 10/23/17 08:24 ciprofloxacin HCl Allergy RASH Verified 10/23/17 08:24 [From Cipro] Physical Exam - Constitutional Appears: Chronically Ill - Head Exam Head Exam: NORMAL INSPECTION - Eye Exam Eye Exam: PERRL - ENT Exam ENT Exam: Normal Exam - Neck Exam Neck exam: Positive for: Normal Inspection - Respiratory Exam Respiratory Exam: NORMAL BREATHING PATTERN - Cardiovascular Exam Cardiovascular Exam: REGULAR RHYTHM - GI/Abdominal Exam GI & Abdominal Exam: Normal Bowel Sounds, Soft - Extremities Exam Additional comments: No movements L/E, R-L foot droop - Neurological Exam Neurological exam: Alert, Oriented x3 Additional comments: Paraplegia, no movements or sensation in lower extremities. - Psychiatric Exam Psychiatric exam: Depressed - Skin Skin Exam: Warm Results - Vital Signs Recent Vital Signs: Last Vital Signs Temp 98.2 F 08/06/18 11:33 Pulse 50 L 08/06/18 11:33 Resp 18 08/06/18 11:33 BP 123/62 08/06/18 11:33 Pulse Ox 98 08/06/18 11:33 reviewed Srinivasan - Labs Result Diagrams: 08/06/18 12:36 08/06/18 12:36 Labs: Laboratory Results - last 24 hr 08/06/18 08/06/18 12:36 12:36 WBC 5.5 RBC 3.38 L Hgb 10.6 L Hct 33.1 L MCV 97.8 MCH 31.3 H MCHC 32.0 L RDW 13.7 Plt Count 151 D MPV 9.7 Neut % (Auto) 56.2 Lymph % (Auto) 27.1 [place] % (Auto) 10.3 H Eos % (Auto) 5.4 H Baso % (Auto) 1.0 Neut # (Auto) 3.1 Lymph # (Auto) 1.5 [place] # (Auto) 0.6 Eos # (Auto) 0.3 Baso # (Auto) 0.1 Sodium 139 Potassium 4.7 Chloride 110 H Carbon Dioxide 22 Anion Gap 12 BUN 31 H Creatinine 1.4 H Est GFR ( Amer) 44 Est GFR (Non-Af Amer) 36 Random Glucose 111 H Calcium 8.7 Total Bilirubin 0.3 AST 30 ALT 25 Alkaline Phosphatase 65 Total Protein 6.7 Albumin 3.7 Globulin 3.0 Albumin/Globulin Ratio 1.2 reviewed J.PDash Assessment & Plan (1) Devic's disease Status: Chronic Priority: High (2) Diabetes mellitus Status: Chronic Priority: Medium (3) Hypothyroidism Status: Chronic Priority: Low (4) Dyslipidemia Status: Chronic Priority: Low (5) Depression Status: Chronic Priority: Medium - Assessment and Plan (Free Text) Plan: Continue Neurontin, Vasotec, Insulin, Lovaza, Synthroid and rest of Tx. For Ritusimab infusion. Hematology consult appreciated. - Date & Time Date: 08/06/18 Time: 11:30
[2018-08-06] MEDS ORDERED: Insulin Lispro (humaLOG) 100 Units/ml Inj SC SCH (17:00)
[2018-08-06] MEDS ORDERED: MOMETASONE 0.1% TOP SCH (17:00)
[2018-08-06] MEDS ORDERED: PROPYLENE GLYCOL OU SCH (17:00)
[2018-08-06] MEDS ORDERED: APPL TOP SCH (17:00)
[2018-08-06] MEDS ORDERED: PEG OU SCH (17:00)
[2018-08-06] MEDS ORDERED: Calcium-Vit D 500 mg-200 Units Tab UD PO SCH (18:00)
[2018-08-06] MEDS ORDERED: Pantoprazole 20 mg EC Tab PO SCH (18:00)
[2018-08-06] MEDS: Omega-3-Acid Ethyl Esters 1 GM Cap PO SCH (18:31)
[2018-08-06] MEDS: Dorzolamide 2% Ophth Soln OU SCH (18:31)
[2018-08-06] MEDS: Insulin Lispro (humaLOG) 100 Units/ml Inj SC SCH (22:35)
[2018-08-07] MEDS ORDERED: Levothyroxine 75 MCG TAB PO SCH (06:30)
[2018-08-07 08:23] VITALS: BP 144/58; PULSE 52; RESP 19; TEMP 98; O2SAT 96
--- NOTE | 2018-08-07 08:36 | CP.PCM.CON ---
History of Present Illness - History of Present Illness History of Present Illness: This is a 83 yrs old female who was diagnosed to have Devics disease 3 yrs ago. After a trial of other medicines she finally responded to rituximab and is now on the rituximab every 8 weeks.. She has no complaints at this time. She had a reaction to the rituxan when given at the usual rate, but since she has been getting it over 12 hrs she has done well. P/H; HTN,COPD Past Patient History - Tetanus Immunizations Tetanus Immunization: Unknown - Past Medical History & Family History Past Medical History?: Yes - Past Social History Smoking Status: Never Smoked Alcohol: None Drugs: Denies Home Situation {Lives}: [facility] - CARDIAC Hx Cardiac Disorders: Yes (HTN,HLD) - PULMONARY Hx Respiratory Disorders: No Hx Chronic Obstructive Pulmonary Disease (COPD): No - NEUROLOGICAL Hx Neurological Disorder: Yes (MS) Hx Dementia: Yes Hx Multiple Sclerosis: Yes Other/Comment: Devic's Disease - HEENT Hx HEENT Problems: Yes Hx Glaucoma: Yes (L eye) - RENAL Hx Chronic Kidney Disease: No - ENDOCRINE/METABOLIC Hx Endocrine Disorders: Yes (DM2,HYPOTHYROID) - HEMATOLOGICAL/ONCOLOGICAL Hx Blood Disorders: Yes Hx AIDS: No Hx Chemotherapy: Yes Hx Human Immunodeficiency Virus (HIV): No Hx Shingles: Yes - INTEGUMENTARY Hx Dermatological Problems: No - MUSCULOSKELETAL/RHEUMATOLOGICAL Hx Musculoskeletal Disorders: Yes (ARTHRITIS) Hx Arthritis: Yes Hx Falls: No - GASTROINTESTINAL Hx Gastrointestinal Disorders: Yes Hx Gastritis: Yes - GENITOURINARY/GYNECOLOGICAL Hx Genitourinary Disorders: Yes (UTI) Hx Incontinence: Yes - PSYCHIATRIC Hx Psychophysiologic Disorder: Yes (ANXIETY,DEPRESSION) Hx Substance Use: No - SURGICAL HISTORY Hx Surgeries: No - ANESTHESIA Hx Anesthesia: No Hx Anesthesia Reactions: No Hx Malignant Hyperthermia: No Meds Allergies/Adverse Reactions: Allergies Allergy/AdvReac Type Severity Reaction Status Date / Time ciprofloxacin [From Cipro] Allergy RASH Verified 10/23/17 08:24 ciprofloxacin HCl Allergy RASH Verified 10/23/17 08:24 [From Cipro] - Medications Medications: Current Medications Acetaminophen (Tylenol 325mg Tab) 650 mg PO Q4 PRN PRN Reason: Pain, Mild (1-3) Atorvastatin Calcium (Lipitor) 10 mg PO HS ADY Last Admin: 08/06/18 22:52 Dose: 10 mg Bisacodyl (Dulcolax) 10 mg HI Q2D [facility] Last Admin: 08/06/18 18:31 Dose: Not Given Calcium/Vitamin D (Oyster Shell Calcium/Vitamin D 500 Mg-200 Iu) 1 tab PO QPM [facility] Last Admin: 08/06/18 18:31 Dose: 1 tab Docusate Sodium (Colace) 200 mg PO HS [facility] Last Admin: 08/06/18 22:54 Dose: 200 mg Dorzolamide HCl (Trusopt) 1 drop OU TID [facility] Last Admin: 08/06/18 18:31 Dose: 1 drop Enalapril Maleate (Vasotec) 10 mg PO DAILY [facility] Fentanyl (Duragesic) 1 patch TD Q3D [facility]; Protocol Gabapentin (Neurontin) 300 mg PO TID [facility] Last Admin: 08/06/18 18:31 Dose: 300 mg Home Med (Linagliptin [Tradjenta]) 5 mg PO DAILY [facility] Home Med (Lipase/Protease/Amylase [Creon Dr 24,000 Units Capsule]) 2 cap PO TID [facility] Home Med (Mometasone 0.1% [Elocon Cream]) 1 appl TOP BID [facility] Home Med (Propylene Glycol/Peg 400 [Systane Liquid Gel Eye Drops]) 1 drop OU TID [facility] Home Med (Simethicone [Gas Relief]) 125 mg PO TID [facility] Insulin Human Lispro (Humalog) 4 units SC DIN [facility] Last Admin: 08/06/18 18:28 Dose: 4 u Insulin Human Lispro (Humalog) 0 units SC ACHS [facility]; Protocol Last Admin: 08/06/18 22:35 Dose: Not Given Lactulose (Enulose) 20 gm PO [facility] Last Admin: 08/06/18 22:52 Dose: 20 gm Levothyroxine Sodium (Synthroid) 75 mcg PO DAILY@0630 [facility] Last Admin: 08/07/18 05:32 Dose: 75 mcg Magnesium Hydroxide (Milk Of Magnesia) 30 ml PO MWF [facility] Multivitamins/Minerals (Therapeutic-M Tab) 1 tab PO DAILY [facility] Lniwl-4-Urfu Ethyl Esters (Lovaza) 2 gm PO BID [facility] Last Admin: 08/06/18 18:31 Dose: 2 gm Ondansetron HCl (Zofran Tab) 8 mg PO Q8H PRN PRN Reason: Nausea/Vomiting Pantoprazole Sodium (Protonix Ec Tab) 20 mg PO QPM ADY Last Admin: 08/06/18 18:31 Dose: 20 mg Polyethylene Glycol (Miralax) 17 gm PO DAILY ADY Prochlorperazine (Compazine Rectal Supp) 25 mg HI Q12H PRN PRN Reason: Nausea/Vomiting Physical Exam - Additional Findings Additional findings: Physical exam; Alert,well oriented in no acute distress neck; Supple, no adenopathy Chest; Clear, no rales or rhonchi Heart;RSR,no murmur Abd; Soft, no mass no h/s megaly Results - Vital Signs Recent Vital Signs: Last Vital Signs Temp 98.0 F 08/07/18 08:22 Pulse 52 L 08/07/18 08:22 Resp 19 08/07/18 08:22 BP 144/58 L 08/07/18 08:22 Pulse Ox 96 08/07/18 08:22 - Labs Result Diagrams: 08/06/18 12:36 08/06/18 12:36 Labs: Laboratory Results - last 24 hr 08/06/18 08/06/18 08/06/18 12:36 12:36 12:40 WBC 5.5 RBC 3.38 L Hgb 10.6 L Hct 33.1 L MCV 97.8 MCH 31.3 H MCHC 32.0 L RDW 13.7 Plt Count 151 D MPV 9.7 Neut % (Auto) 56.2 Lymph % (Auto) 27.1 [place] % (Auto) 10.3 H Eos % (Auto) 5.4 H Baso % (Auto) 1.0 Neut # (Auto) 3.1 Lymph # (Auto) 1.5 [place] # (Auto) 0.6 Eos # (Auto) 0.3 Baso # (Auto) 0.1 Sodium 139 Potassium 4.7 Chloride 110 H Carbon Dioxide 22 Anion Gap 12 BUN 31 H Creatinine 1.4 H Est GFR ( Amer) 44 Est GFR (Non-Af Amer) 36 POC Glucose (mg/dL) Random Glucose 111 H Calcium 8.7 Total Bilirubin 0.3 AST 30 ALT 25 Alkaline Phosphatase 65 Lactate Dehydrogenase 589 Total Protein 6.7 Albumin 3.7 Globulin 3.0 Albumin/Globulin Ratio 1.2 08/06/18 08/06/18 08/07/18 17:06 22:34 05:22 WBC RBC Hgb Hct MCV MCH MCHC RDW Plt Count MPV Neut % (Auto) Lymph % (Auto) [place] % (Auto) Eos % (Auto) Baso % (Auto) Neut # (Auto) Lymph # (Auto) [place] # (Auto) Eos # (Auto) Baso # (Auto) Sodium Potassium Chloride Carbon Dioxide Anion Gap BUN Creatinine Est GFR ( Amer) Est GFR (Non-Af Amer) POC Glucose (mg/dL) 199 H 217 H 142 H Random Glucose Calcium Total Bilirubin AST ALT Alkaline Phosphatase Lactate Dehydrogenase Total Protein Albumin Globulin Albumin/Globulin Ratio Assessment & Plan - Assessment and Plan (Free Text) Assessment: impression; Devic;s disease Plan: Plan; Rituximab will be given over 12 hrs and then pt will be discharged - Date & Time Date: 08/07/18 Time: 08:40
[2018-08-07] MEDS ORDERED: Magnesium Hydroxide Susp 30 ml UD PO SCH (09:00)
[2018-08-07] MEDS ORDERED: Multivitamin With Minerals Tab PO SCH (09:00)
[2018-08-07] MEDS ORDERED: POLYETHYLENE GLYCOL 3350 17 GM/Dose PACKET PO SCH (09:00)
[2018-08-07] MEDS: Insulin Lispro (humaLOG) 100 Units/ml Inj SC SCH ×2 (10:20→13:25)
[2018-08-07] MEDS: Omega-3-Acid Ethyl Esters 1 GM Cap PO SCH (10:21)
[2018-08-07] MEDS: Dorzolamide 2% Ophth Soln OU SCH (10:22)
--- NOTE | 2018-08-07 16:09 | CP.PCM.DIS ---
Provider - Provider Date of Admission: 08/06/18 11:17 Attending physician: Jameson Chiu MD Consults: Herb/Onco-Dr. Fitzgerald Time Spent in preparation of Discharge (in minutes): 35 Diagnosis - Discharge Diagnosis (1) Devic's disease Status: Chronic Priority: High (2) Diabetes mellitus Status: Chronic Priority: Medium (3) Hypothyroidism Status: Chronic Priority: Low (4) Dyslipidemia Status: Chronic Priority: Low (5) Depression Status: Chronic Priority: Medium Hospital Course - Lab Results Lab Results: Most Recent Lab Values WBC 5.5 K/uL (4.8-10.8) 08/06/18 12:36 RBC 3.38 Mil/uL (3.80-5.20) L 08/06/18 12:36 Hgb 10.6 g/dL (12.0-16.0) L 08/06/18 12:36 Hct 33.1 % (34.0-47.0) L 08/06/18 12:36 MCV 97.8 fl (81.0-99.0) 08/06/18 12:36 MCH 31.3 pg (27.0-31.0) H 08/06/18 12:36 MCHC 32.0 g/dL (33.0-37.0) L 08/06/18 12:36 RDW 13.7 % (11.5-14.5) 08/06/18 12:36 Plt Count 151 K/uL (130-400) D 08/06/18 12:36 MPV 9.7 fl (7.2-11.7) 08/06/18 12:36 Neut % (Auto) 56.2 % (50.0-75.0) 08/06/18 12:36 Lymph % (Auto) 27.1 % (20.0-40.0) 08/06/18 12:36 [place] % (Auto) 10.3 % (0.0-10.0) H 08/06/18 12:36 Eos % (Auto) 5.4 % (0.0-4.0) H 08/06/18 12:36 Baso % (Auto) 1.0 % (0.0-2.0) 08/06/18 12:36 Neut # (Auto) 3.1 K/uL (1.8-7.0) 08/06/18 12:36 Lymph # (Auto) 1.5 K/uL (1.0-4.3) 08/06/18 12:36 [place] # (Auto) 0.6 K/uL (0.0-0.8) 08/06/18 12:36 Eos # (Auto) 0.3 K/uL (0.0-0.7) 08/06/18 12:36 Baso # (Auto) 0.1 K/uL (0.0-0.2) 08/06/18 12:36 Sodium 139 mmol/l (132-148) 08/06/18 12:36 Potassium 4.7 MMOL/L (3.6-5.0) 08/06/18 12:36 Chloride 110 mmol/L (98-107) H 08/06/18 12:36 Carbon Dioxide 22 mmol/L (22-30) 08/06/18 12:36 Anion Gap 12 (10-20) 08/06/18 12:36 BUN 31 mg/dl (7-17) H 08/06/18 12:36 Creatinine 1.4 mg/dl (0.7-1.2) H 08/06/18 12:36 Est GFR ( Amer) 44 08/06/18 12:36 Est GFR (Non-Af Amer) 36 08/06/18 12:36 POC Glucose (mg/dL) 224 mg/dL (65-110) H 08/07/18 11:02 Random Glucose 111 mg/dL (65-105) H 08/06/18 12:36 Calcium 8.7 mg/dL (8.4-10.2) 08/06/18 12:36 Total Bilirubin 0.3 mg/dl (0.2-1.3) 08/06/18 12:36 AST 30 U/L (14-36) 08/06/18 12:36 ALT 25 U/L (9-52) 08/06/18 12:36 Alkaline Phosphatase 65 U/L (38-126) 08/06/18 12:36 Lactate Dehydrogenase 589 U/L (313-618) 08/06/18 12:40 Total Protein 6.7 G/DL (6.3-8.2) 08/06/18 12:36 Albumin 3.7 g/dL (3.5-5.0) 08/06/18 12:36 Globulin 3.0 gm/dL (2.2-3.9) 08/06/18 12:36 Albumin/Globulin Ratio 1.2 (1.0-2.1) 08/06/18 12:36 - Date & Time of H&P Date of H&P: 08/06/18 Time of H&P: 11:30 Discharge Exam - Head Exam Head Exam: NORMAL INSPECTION - Eye Exam Eye Exam: PERRL - ENT Exam ENT Exam: Normal Exam - Neck Exam Neck exam: Normal Inspection - Respiratory Exam Respiratory Exam: NORMAL BREATHING PATTERN - Cardiovascular Exam Cardiovascular Exam: REGULAR RHYTHM - GI/Abdominal Exam GI & Abdominal Exam: Normal Bowel Sounds, Soft - Extremities Exam Additional comments: No movement L/E, R/L foot droop - Neurological Exam Neurological exam: Alert, Oriented x3 Additional comments: paraplegia, no movements or sensation in lower extremities. - Psychiatric Exam Psychiatric exam: Depressed - Skin Skin Exam: Warm Discharge Plan - Follow Up Plan Condition: GOOD Disposition: TRANSF TO SNF Instructions: Multiple Sclerosis in Adults
== END 2018-08-07 14:22 ==
LOC: H.MEDSURG1 11:17
PROVIDERS: ADMIT Internal Medicine Pulmonary Disease; ATTEND Internal Medicine Pulmonary Disease
DX: G36.0 Neuromyelitis optica [Devic] (principal); E11.9 Type 2 diabetes mellitus without complications; E03.9 Hypothyroidism, unspecified; H40.9 Unspecified glaucoma; E78.5 Hyperlipidemia, unspecified; F32.9 Major depressive disorder, single episode, unspecified; I10 Essential (primary) hypertension; G35 Multiple sclerosis; F03.90 Unspecified dementia, unspecified severity, without behavioral disturbance, psychotic disturbance, mood disturbance, and anxiety; G82.20 Paraplegia, unspecified; F41.9 Anxiety disorder, unspecified; Z88.1 Allergy status to other antibiotic agents; M19.90 Unspecified osteoarthritis, unspecified site; R32 Unspecified urinary incontinence
CPT/HCPCS: 36415; 80053; 82948; 83615; 85025; 96375; 96416; G0378; J1100; J2405; J7040

== ENCOUNTER 2018-10-01 09:47 | Observation (INO) | payer MEDICARE, MEDICAID ==
[2018-10-01] MEDS ORDERED: SODIUM CHLORIDE 0.9% IV ONE (10:26)
[2018-10-01] MEDS ORDERED: RITUXIMAB IV ONE (10:26)
--- NOTE | 2018-10-01 10:37 | CP.PCM.PN ---
Subjective - Date & Time of Evaluation Date of Evaluation: 10/01/18 Time of Evaluation: 10:29 - Subjective Subjective: this is a 83 yrs old female who was diagnosed with Devics disease in 2003. She had been tried on other medications but but no response was seen .She was then started on Rituxan and has been much better since. She receives her Rituxan q 2 months. No abdominal pain, or bache also has a past h/o She also has a past h/o DM, htn, copd, hypothyroidism, Objective - Medications Medications: Current Medications Acetaminophen (Tylenol 325mg Tab) 650 mg PO ONCE ONE Stop: 10/01/18 10:22 Diphenhydramine HCl 25 mg/ (Sodium Chloride) 50.5 mls @ 101 mls/hr IVPB ONCE ONE Stop: 10/01/18 10:50 - Additional Findings Additional findings: Physical exam; alert,well oriented, in no acute distress neck; Supple, no adenopathy Chest; clear, no ales or rhonchi Heart; RSR, no murmur Abdomen; Soft, no mass. no h/s megaly Assessment and Plan - Assessment and Plan (Free Text) Assessment: impression; Devic's disease Plan: Plan ; Will give her Rituximab over 12 hrs, since she gets a reaction when given at the regular rate.
[2018-10-01] MEDS ORDERED: Dexamethasone 10 MG in Sodium Chloride 0.9% 50 ML IVPB ONE (11:00)
[2018-10-01] MEDS: Sodium Chloride 0.9% 500 ML IV SCH (11:23)
[2018-10-01 11:27] LABS: BASO # 0.1 K/uL (0.0-0.2); BASO % 0.9 % (0.0-2.0); EOS # 0.2 K/uL (0.0-0.7); EOS % 3.1 % (0.0-4.0); LYMPH # 1.2 K/uL (1.0-4.3); LYMPH % 19.2 % (20.0-40.0); MEAN CELL VOLUME 98.4 fl (81.0-99.0); MEAN CORPUSCULAR HEMOGLOBIN 32.1 pg (27.0-31.0); MEAN CORPUSCULAR HGB CONC 32.6 g/dL (33.0-37.0); MEAN PLATELET VOLUME 9.3 fl (7.2-11.7); MONO # 0.5 K/uL (0.0-0.8); MONO % 8.3 % (0.0-10.0); NEUT # 4.3 K/uL (1.8-7.0); NEUT % 68.5 % (50.0-75.0); NRBC % 0.1 % (0.0-0.0); RBC 3.44 Mil/uL (3.80-5.20); RED CELL DISTRIBUTION WIDTH 13.7 % (11.5-14.5); WHITE BLOOD COUNT 6.2 K/uL (4.8-10.8)
[2018-10-01 11:36] LABS: ALB/GLOB RATIO 1.2 (1.0-2.1); ALBUMIN 3.6 g/dL (3.5-5.0); CALCIUM 8.5 mg/dL (8.4-10.2)
[2018-10-01] MEDS: Dorzolamide 2% Ophth Soln OU SCH ×3 (13:33→16:52)
[2018-10-01] MEDS: Omega-3-Acid Ethyl Esters 1 GM Cap PO SCH (16:52)
[2018-10-01 23:39] VITALS: RESP 20
[2018-10-02] MEDS: Sodium Chloride 0.9% 500 ML IV SCH (04:45)
[2018-10-02] MEDS ORDERED: Levothyroxine 75 MCG TAB PO SCH (06:30)
[2018-10-02 07:03] LABS: CALCIUM 8.1 mg/dL (8.4-10.2)
[2018-10-02 07:59] VITALS: BP 126/62; PULSE 62; TEMP 98.2; O2SAT 95
[2018-10-02] MEDS ORDERED: Multivitamin With Minerals Tab PO SCH (09:00)
--- NOTE | 2018-10-02 09:00 | CP.PCM.PN ---
Subjective - Date & Time of Evaluation Date of Evaluation: 10/02/18 Time of Evaluation: 08:58 - Subjective Subjective: Pt tolerated her rituxan well , with no side effects. She may be discharged when ok with the attending, and return in 228 weeks for the next dose of rituxan. Objective - Vital Signs/Intake and Output Vital Signs (last 24 hours): Temp Pulse Resp BP Pulse Ox 98.2 F 62 20 126/62 95 10/02/18 07:58 10/02/18 07:58 10/02/18 07:58 10/02/18 07:58 10/02/18 07:58 - Medications Medications: Current Medications Atorvastatin Calcium (Lipitor) 10 mg PO [facility] Last Admin: 10/01/18 22:23 Dose: 10 mg Docusate Sodium (Colace) 200 mg PO [facility] Last Admin: 10/01/18 22:23 Dose: 200 mg Dorzolamide HCl (Trusopt) 1 drop OU TID [facility] Last Admin: 10/01/18 16:52 Dose: 1 drop Enalapril Maleate (Vasotec) 10 mg PO DAILY [facility] Gabapentin (Neurontin) 300 mg PO TID [facility] Last Admin: 10/01/18 16:52 Dose: 300 mg Sodium Chloride (Sodium Chloride 0.9%) 500 mls @ 70 mls/hr IV .Q7H9M [facility] Last Admin: 10/02/18 04:45 Dose: 70 mls/hr Levothyroxine Sodium (Synthroid) 75 mcg PO DAILY@0630 [facility] Last Admin: 10/02/18 05:48 Dose: 75 mcg Multivitamins/Minerals (Therapeutic-M Tab) 1 tab PO DAILY [facility] [id number] Ethyl Esters (Lovaza) 2 gm PO BID [facility] Last Admin: 10/01/18 16:52 Dose: 2 gm - Labs Labs: 10/01/18 11:00 10/02/18 05:40
[2018-10-02] MEDS: Dorzolamide 2% Ophth Soln OU SCH ×2 (09:08→13:01)
[2018-10-02] MEDS: Omega-3-Acid Ethyl Esters 1 GM Cap PO SCH (09:09)
--- NOTE | 2018-10-02 13:14 | CP.PCM.HP ---
History of Present Illness - History of Present Illness History of Present Illness: CC: Devic's Disease. 83 y/o F, resident at [facility] with multiple chronic medical conditions, including Devic's Disease, DM2, O/A, [facility] Tx. q 2 months. Worsening symptom: Weakness, Dementia. Aggravated factor: Movements. Pt denied: fever, chills, n/v/d, abdominal pain, CP, palpitations, dizziness, urinary symptoms, sick contact. Present on Admission - Present on Admission Any Indicators Present on Admission: No Review of Systems - Constitutional Constitutional: Weakness - EENT Eyes: Requires Corrective Lenses Ears: Other (negative) Nose/Mouth/Throat: Other (negative) - Cardiovascular Cardiovascular: Other (negative) - Respiratory Respiratory: Other (negative) - Gastrointestinal Gastrointestinal: Other (negative) - Genitourinary Genitourinary: Urinary Incontinence - Musculoskeletal Musculoskeletal: Arthralgias - Integumentary Integumentary: Other (negative) - Neurological Neurological: Other (Paralysis BLE) - Psychiatric Psychiatric: Depression - Endocrine Endocrine: Other (negative) - Hematologic/Lymphatic Hematologic: Other (negative) Past Patient History - Tetanus Immunizations Tetanus Immunization: Unknown - Past Medical History & Family History Past Medical History?: Yes Pertinent Family History: Unknown - Past Social History Smoking Status: Never Smoked Alcohol: None Drugs: Denies Home Situation {Lives}: [facility] - CARDIAC Hx Cardiac Disorders: Yes (HTN,HLD) - PULMONARY Hx Respiratory Disorders: No Hx Chronic Obstructive Pulmonary Disease (COPD): No - NEUROLOGICAL Hx Neurological Disorder: Yes (MS) Hx Dementia: Yes Hx Multiple Sclerosis: Yes Other/Comment: Devic's Disease - HEENT Hx HEENT Problems: Yes Hx Glaucoma: Yes (L eye) - RENAL Hx Chronic Kidney Disease: No - ENDOCRINE/METABOLIC Hx Endocrine Disorders: Yes (DM2,HYPOTHYROID) - HEMATOLOGICAL/ONCOLOGICAL Hx Blood Disorders: Yes Hx AIDS: No (denies) Hx Chemotherapy: Yes Hx Human Immunodeficiency Virus (HIV): No (denies) Hx Shingles: Yes - INTEGUMENTARY Hx Dermatological Problems: No - MUSCULOSKELETAL/RHEUMATOLOGICAL Hx Musculoskeletal Disorders: Yes (ARTHRITIS) Hx Arthritis: Yes Hx Falls: No - GASTROINTESTINAL Hx Gastrointestinal Disorders: Yes Hx Gastritis: Yes - GENITOURINARY/GYNECOLOGICAL Hx Genitourinary Disorders: Yes (UTI) Hx Incontinence: Yes - PSYCHIATRIC Hx Psychophysiologic Disorder: Yes (ANXIETY,DEPRESSION) Hx Substance Use: No - SURGICAL HISTORY Hx Surgeries: No - ANESTHESIA Hx Anesthesia: No Hx Anesthesia Reactions: No Hx Malignant Hyperthermia: No Meds Allergies/Adverse Reactions: Allergies Allergy/AdvReac Type Severity Reaction Status Date / Time ciprofloxacin [From Cipro] Allergy RASH Verified 10/23/17 08:24 ciprofloxacin HCl Allergy RASH Verified 10/23/17 08:24 [From Cipro] Physical Exam - Constitutional Appears: No Acute Distress, Chronically Ill - Head Exam Head Exam: NORMAL INSPECTION - Eye Exam Eye Exam: PERRL - ENT Exam ENT Exam: Normal Exam - Neck Exam Neck exam: Positive for: Normal Inspection - Respiratory Exam Respiratory Exam: NORMAL BREATHING PATTERN - Cardiovascular Exam Cardiovascular Exam: REGULAR RHYTHM - GI/Abdominal Exam GI & Abdominal Exam: Normal Bowel Sounds, Soft - Extremities Exam Additional comments: Paralysis BLE, R-L foot droop, L hand contracted - Neurological Exam Neurological exam: Alert, Oriented x3 Additional comments: Paraplegia, no movements or sensation on BLE, R-L foot droop - Psychiatric Exam Psychiatric exam: Depressed - Skin Skin Exam: Warm Results - Vital Signs Recent Vital Signs: Last Vital Signs Temp 98.2 F 10/02/18 07:58 Pulse 62 10/02/18 07:58 Resp 20 10/02/18 07:58 BP 126/62 10/02/18 07:58 Pulse Ox 95 10/02/18 07:58 reviewed J.P. - Labs Result Diagrams: 10/01/18 11:00 10/02/18 05:40 Labs: Laboratory Results - last 24 hr 10/01/18 10/01/18 10/02/18 16:12 21:04 05:25 Sodium Potassium Chloride Carbon Dioxide Anion Gap BUN Creatinine Est GFR ( Amer) Est GFR (Non-Af Amer) POC Glucose (mg/dL) 184 H 223 H 91 Random Glucose Calcium 10/02/18 10/02/18 05:40 11:03 Sodium 137 Potassium 5.2 H Chloride 106 Carbon Dioxide 25 Anion Gap 11 BUN 26 H Creatinine 1.5 H Est GFR ( Amer) 40 Est GFR (Non-Af Amer) 33 POC Glucose (mg/dL) 258 H Random Glucose 96 Calcium 8.1 L reviewed J.P. Assessment & Plan (1) Devic's disease Status: Chronic Priority: High (2) Chronic paraplegia Status: Chronic Priority: High (3) General weakness Status: Chronic Priority: High (4) Diabetes mellitus Status: Chronic Priority: Medium (5) Gastritis Status: Chronic Priority: Medium (6) Dyslipidemia Status: Chronic Priority: Low (7) Depression Status: Chronic Priority: Medium - Assessment and Plan (Free Text) Plan: After Rituximab infusion Pt feels better, no A/D, no n/v/d, no fever, Pt improved and stable to return to [facility], I will follow her in this facility. - Date & Time Date: 10/02/18 Time: 12:00
[2018-10-02] MEDS ORDERED: PEG OU SCH (17:00)
[2018-10-02] MEDS ORDERED: PROPYLENE GLYCOL OU SCH (17:00)
[2018-10-02] MEDS ORDERED: Insulin Lispro (humaLOG) 100 Units/ml Inj SC SCH (17:00)
[2018-10-03] MEDS ORDERED: POLYETHYLENE GLYCOL 3350 17 GM/Dose PACKET PO SCH (09:00)
== END 2018-10-02 16:25 ==
LOC: H.MEDSURG1 10:17
PROVIDERS: ADMIT Internal Medicine Pulmonary Disease; ATTEND Internal Medicine Pulmonary Disease
DX: G36.0 Neuromyelitis optica [Devic] (principal); G35 Multiple sclerosis; E11.9 Type 2 diabetes mellitus without complications; F03.90 Unspecified dementia, unspecified severity, without behavioral disturbance, psychotic disturbance, mood disturbance, and anxiety; E03.9 Hypothyroidism, unspecified; I10 Essential (primary) hypertension; E78.5 Hyperlipidemia, unspecified; J44.9 Chronic obstructive pulmonary disease, unspecified; F41.9 Anxiety disorder, unspecified; M19.90 Unspecified osteoarthritis, unspecified site
CPT/HCPCS: 36415; 80048; 80053; 82948; 85025; 96374; 96375; 96416; G0378; J1100; J1200; J2405; J7040; J9312

== ENCOUNTER 2018-11-26 10:15 | Observation (INO) | payer MEDICARE, MEDICAID ==
[2018-11-26] MEDS ORDERED: Dexamethasone 10 MG in Sodium Chloride 0.9% 50 ML IVPB ONE (11:50)
--- NOTE | 2018-11-26 12:05 | CP.PCM.CON ---
History of Present Illness - History of Present Illness History of Present Illness: This is a 83 yrs old female who has Devics disease. She was tried on various medicines, but she finally responded to rituxan. Initially she was receiving the medicine every month, but now she only gets it every 8 weeks., and is feeling much better.She has no side effects from the rituxan. PMH; HTN, DM,Hpercholesterolemia Past Patient History - Tetanus Immunizations Tetanus Immunization: Unknown - Past Medical History & Family History Past Medical History?: Yes - Past Social History Smoking Status: Never Smoked - CARDIAC Hx Cardiac Disorders: Yes (HTN,HLD) - PULMONARY Hx Respiratory Disorders: No Hx Chronic Obstructive Pulmonary Disease (COPD): No - NEUROLOGICAL Hx Neurological Disorder: Yes (MS) Hx Dementia: Yes Hx Multiple Sclerosis: Yes Other/Comment: Devic's Disease - HEENT Hx HEENT Problems: Yes Hx Glaucoma: Yes (L eye) - RENAL Hx Chronic Kidney Disease: No - ENDOCRINE/METABOLIC Hx Endocrine Disorders: Yes (DM2,HYPOTHYROID) - HEMATOLOGICAL/ONCOLOGICAL Hx Blood Disorders: Yes Hx AIDS: No (denies) Hx Chemotherapy: Yes Hx Human Immunodeficiency Virus (HIV): No (denies) Hx Shingles: Yes - INTEGUMENTARY Hx Dermatological Problems: No - MUSCULOSKELETAL/RHEUMATOLOGICAL Hx Musculoskeletal Disorders: Yes (ARTHRITIS) Hx Arthritis: Yes Hx Falls: No - GASTROINTESTINAL Hx Gastrointestinal Disorders: Yes Hx Gastritis: Yes - GENITOURINARY/GYNECOLOGICAL Hx Genitourinary Disorders: Yes (UTI) Hx Incontinence: Yes - PSYCHIATRIC Hx Psychophysiologic Disorder: Yes (ANXIETY,DEPRESSION) Hx Substance Use: No - SURGICAL HISTORY Hx Surgeries: No - ANESTHESIA Hx Anesthesia: No Hx Anesthesia Reactions: No Hx Malignant Hyperthermia: No Meds Allergies/Adverse Reactions: Allergies Allergy/AdvReac Type Severity Reaction Status Date / Time ciprofloxacin [From Cipro] Allergy RASH Verified 10/23/17 08:24 ciprofloxacin HCl Allergy RASH Verified 10/23/17 08:24 [From Cipro] - Medications Medications: Current Medications Acetaminophen (Tylenol 325mg Tab) 650 mg PO ONCE ONE Stop: 11/26/18 11:51 Famotidine (Pepcid) 20 mg IVP STAT STA Stop: 11/26/18 11:54 Diphenhydramine HCl 25 mg/ (Sodium Chloride) 50.5 mls @ 101 mls/hr IVPB ONCE ONE Stop: 11/26/18 12:19 Dexamethasone 10 mg/ Sodium (Chloride) 51 mls @ 102 mls/hr IVPB ONCE ONE Stop: 11/26/18 12:19 Sodium Chloride (Sodium Chloride 0.9%) 500 mls @ 70 mls/hr IV .Q7H9M [facility] Rituximab 585 mg/ Sodium (Chloride) 308.5 mls @ 0 mls/hr IV ONCE ONE Stop: 11/26/18 11:58 Ondansetron HCl 16 mg/ Sodium (Chloride) 58 mls @ 116 mls/hr IVPB ONCE ONE Stop: 11/26/18 12:19 Physical Exam - Additional Findings Additional findings: Physical exam; alert,well oriented in no acute distress neck; supple, no adenopathy Chest; clear, no rales or rhonchi Heart; RSR, no muirmur Abd; Soft, no mass, celery 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 - Date & Time Date: 11/26/18 Time: :19
[2018-11-26 12:28] LABS: BASO # 0.1 K/uL (0.0-0.2); BASO % 1.8 % (0.0-2.0); EOS # 0.3 K/uL (0.0-0.7); EOS % 5.1 % (0.0-4.0); HEMOGLOBIN 10.5 g/dL (12.0-16.0); LYMPH # 1.4 K/uL (1.0-4.3); LYMPH % 25.1 % (20.0-40.0); MEAN CELL VOLUME 97.5 fl (81.0-99.0); MEAN CORPUSCULAR HEMOGLOBIN 32.5 pg (27.0-31.0); MEAN CORPUSCULAR HGB CONC 33.3 g/dL (33.0-37.0); MEAN PLATELET VOLUME 9.1 fl (7.2-11.7); MONO # 0.5 K/uL (0.0-0.8); MONO % 9.1 % (0.0-10.0); NEUT # 3.2 K/uL (1.8-7.0); NEUT % 58.9 % (50.0-75.0); RBC 3.25 Mil/uL (3.80-5.20); WHITE BLOOD COUNT 5.4 K/uL (4.8-10.8)
[2018-11-26 12:34] LABS: ALB/GLOB RATIO 1.2 (1.0-2.1); ALBUMIN 3.6 g/dL (3.5-5.0); CALCIUM 8.4 mg/dL (8.4-10.2)
[2018-11-26] MEDS ORDERED: DiphenhydrAMINE 50 mg/ml Inj IVP SCH (12:45)
[2018-11-26] MEDS ORDERED: Acetaminophen 650mg/20.3ml solution UD PO SCH (13:15)
[2018-11-26] MEDS: Sodium Chloride 0.9% 500 ML IV SCH ×2 (13:23→19:30)
[2018-11-26] MEDS ORDERED: RITUXIMAB IV ONE (13:30)
[2018-11-26] MEDS ORDERED: SODIUM CHLORIDE 0.9% IV ONE (13:30)
[2018-11-26 14:41] VITALS: BMI 22.4
--- NOTE | 2018-11-26 16:40 | CP.PCM.HP ---
History of Present Illness - History of Present Illness History of Present Illness: xCC: Devic's Disease. 83 y/o F, resident at [facility] with multiple chronic medical conditions, including Chronic Paraplegia, DMII, Dyslipidemia, Hypothyroidism, Depression, was brought to [facility] today 11/26/18 to continue with Retuximab infusion q 8 weeks. Worsening symptoms: Weakness, Dementia, paralysis BLE. Aggravated favtor: Movements/exercise. Pt denied: Fever, chills, n/v/d, abdominal pain, CP, palpitations, syncope, dizziness, SOB, cough, sick contact. Present on Admission - Present on Admission Any Indicators Present on Admission: No Review of Systems - Constitutional Constitutional: Weakness - EENT Eyes: Requires Corrective Lenses Ears: Other (negative) Nose/Mouth/Throat: Other (negative) - Cardiovascular Cardiovascular: Other (negative) - Respiratory Respiratory: Other (negative) - Gastrointestinal Gastrointestinal: Other (negative) - Genitourinary Genitourinary: Urinary Incontinence - Musculoskeletal Musculoskeletal: Arthralgias - Integumentary Integumentary: Other (negative) - Neurological Neurological: Weakness, Other (Paralysis BLE) - Psychiatric Psychiatric: Depression - Endocrine Endocrine: Other (negative) - Hematologic/Lymphatic Hematologic: Other (negative) Past Patient History - Tetanus Immunizations Tetanus Immunization: Unknown - Past Medical History & Family History Past Medical History?: Yes Pertinent Family History: Unknown - Past Social History Smoking Status: Never Smoked Alcohol: None Drugs: Denies Home Situation {Lives}: [facility] - CARDIAC Hx Cardiac Disorders: Yes (HTN,HLD) - PULMONARY Hx Respiratory Disorders: No Hx Chronic Obstructive Pulmonary Disease (COPD): No - NEUROLOGICAL Hx Neurological Disorder: Yes (MS) Hx Dementia: Yes Hx Multiple Sclerosis: Yes Other/Comment: Devic's Disease - HEENT Hx HEENT Problems: Yes Hx Glaucoma: Yes (L eye) - RENAL Hx Chronic Kidney Disease: No - ENDOCRINE/METABOLIC Hx Endocrine Disorders: Yes (DM2,HYPOTHYROID) - HEMATOLOGICAL/ONCOLOGICAL Hx Blood Disorders: Yes Hx AIDS: No (denies) Hx Chemotherapy: Yes Hx Human Immunodeficiency Virus (HIV): No (denies) Hx Shingles: Yes - INTEGUMENTARY Hx Dermatological Problems: No - MUSCULOSKELETAL/RHEUMATOLOGICAL Hx Musculoskeletal Disorders: Yes (ARTHRITIS) Hx Arthritis: Yes Hx Falls: No - GASTROINTESTINAL Hx Gastrointestinal Disorders: Yes Hx Gastritis: Yes - GENITOURINARY/GYNECOLOGICAL Hx Genitourinary Disorders: Yes (UTI) Hx Incontinence: Yes - PSYCHIATRIC Hx Psychophysiologic Disorder: Yes (ANXIETY,DEPRESSION) Hx Substance Use: No - SURGICAL HISTORY Hx Surgeries: No - ANESTHESIA Hx Anesthesia: No Hx Anesthesia Reactions: No Hx Malignant Hyperthermia: No Meds Allergies/Adverse Reactions: Allergies Allergy/AdvReac Type Severity Reaction Status Date / Time ciprofloxacin [From Cipro] Allergy RASH Verified 10/23/17 08:24 ciprofloxacin HCl Allergy RASH Verified 10/23/17 08:24 [From Cipro] Physical Exam - Constitutional Appears: No Acute Distress, Chronically Ill - Head Exam Head Exam: NORMAL INSPECTION - Eye Exam Eye Exam: PERRL - ENT Exam ENT Exam: Normal Exam - Neck Exam Neck exam: Positive for: Normal Inspection - Respiratory Exam Respiratory Exam: NORMAL BREATHING PATTERN - Cardiovascular Exam Cardiovascular Exam: REGULAR RHYTHM - GI/Abdominal Exam GI & Abdominal Exam: Normal Bowel Sounds, Soft - Extremities Exam Additional comments: Paralysis BLE, L hand contracted - Neurological Exam Neurological exam: Alert, Oriented x3 Additional comments: Paraplegia, no movements or sensation on BLE, R-L foot droop - Psychiatric Exam Psychiatric exam: Depressed - Skin Skin Exam: Warm Results - Vital Signs Recent Vital Signs: Last Vital Signs Temp 97.7 F 11/26/18 16:30 Pulse 55 L 11/26/18 16:30 Resp 18 11/26/18 16:30 BP 152/68 H 11/26/18 16:30 Pulse Ox 96 11/26/18 16:30 reviewed J.P. - Labs Result Diagrams: 11/26/18 12:12 11/26/18 12:12 Labs: Laboratory Results - last 24 hr 11/26/18 11/26/18 12:12 12:12 WBC 5.4 RBC 3.25 L Hgb 10.5 L Hct 31.7 L MCV 97.5 MCH 32.5 H MCHC 33.3 RDW 14.0 Plt Count 218 MPV 9.1 Neut % (Auto) 58.9 Lymph % (Auto) 25.1 [place] % (Auto) 9.1 Eos % (Auto) 5.1 H Baso % (Auto) 1.8 Neut # (Auto) 3.2 Lymph # (Auto) 1.4 [place] # (Auto) 0.5 Eos # (Auto) 0.3 Baso # (Auto) 0.1 Sodium 137 Potassium 4.9 Chloride 105 Carbon Dioxide 25 Anion Gap 12 BUN 22 H Creatinine 1.2 Est GFR ( Amer) 52 Est GFR (Non-Af Amer) 43 Random Glucose 126 H Calcium 8.4 Total Bilirubin 0.4 AST 30 ALT 33 Alkaline Phosphatase 74 Total Protein 6.6 Albumin 3.6 Globulin 3.0 Albumin/Globulin Ratio 1.2 reviewed J.P. Assessment & Plan (1) Devic's disease Status: Chronic Priority: High (2) Chronic pain Status: Chronic Priority: High (3) Chronic paraplegia Status: Chronic Priority: High (4) DM II (diabetes mellitus, type II), controlled Status: Chronic Priority: Medium (5) General weakness Status: Chronic Priority: High (6) Hypothyroidism Status: Chronic Priority: Medium (7) Chronic depression Status: Chronic Priority: Medium - Assessment and Plan (Free Text) Plan: For Rituximab infusion and rest of Tx. Hematology consult. - Date & Time Date: 11/26/18 Time: 13:50
[2018-11-27] MEDS: Sodium Chloride 0.9% 500 ML IV SCH ×2 (03:00→03:30)
[2018-11-27] MEDS ORDERED: Levothyroxine 75 MCG TAB PO SCH (06:30)
[2018-11-27 06:51] LABS: HEMOGLOBIN 11.1 g/dL (12.0-16.0); MEAN CELL VOLUME 96.1 fl (81.0-99.0); MEAN CORPUSCULAR HEMOGLOBIN 31.9 pg (27.0-31.0); MEAN CORPUSCULAR HGB CONC 33.2 g/dL (33.0-37.0); RBC 3.49 Mil/uL (3.80-5.20); RED CELL DISTRIBUTION WIDTH 13.6 % (11.5-14.5); WHITE BLOOD COUNT 4.6 K/uL (4.8-10.8)
[2018-11-27] MEDS ORDERED: Simethicone 80 mg Chewtab PO SCH (09:00)
[2018-11-27] MEDS ORDERED: Omega-3-Acid Ethyl Esters 1 GM Cap PO SCH (09:00)
[2018-11-27] MEDS ORDERED: POLYETHYLENE GLYCOL 3350 17 GM/Dose PACKET PO SCH (09:00)
[2018-11-27] MEDS ORDERED: Multivitamin With Minerals Tab PO SCH (09:00)
[2018-11-27] MEDS ORDERED: Artificial Tears Opht Soln OU SCH (09:00)
[2018-11-27] MEDS ORDERED: Magnesium Hydroxide Susp 30 ml UD PO SCH (09:00)
[2018-11-27 09:35] VITALS: BP 128/61; PULSE 51; RESP 20; TEMP 98.2; O2SAT 96
--- NOTE | 2018-11-27 10:30 | CP.PCM.PN ---
Subjective - Date & Time of Evaluation Date of Evaluation: 11/27/18 Time of Evaluation: 10:24 - Subjective Subjective: Pt is brandon she has been in the past. no pain, and she tolerated the rituxan well. She will be discharged and return in 8 weeks for next dose of rituxan Objective - Vital Signs/Intake and Output Vital Signs (last 24 hours): Temp Pulse Resp BP Pulse Ox 98.2 F 51 L 20 128/61 96 11/27/18 09:34 11/27/18 09:34 11/27/18 09:34 11/27/18 09:34 11/27/18 09:34 - Medications Medications: Current Medications Acetaminophen (Tylenol 325mg Tab) 650 mg PO Q4 PRN PRN Reason: Pain, Mild (1-3) Artificial Tears (Artificial Tears) 1 drop OU TID [facility] Last Admin: 11/27/18 08:45 Dose: 1 drop Ascorbic Acid (Vitamin C 500 Mg Tab) 500 mg PO DAILY [facility] Last Admin: 11/27/18 08:48 Dose: 500 mg Atorvastatin Calcium (Lipitor) 10 mg PO HS [facility] Last Admin: 11/26/18 21:39 Dose: 10 mg Calcium/Vitamin D (Oyster Shell Calcium/Vitamin D 500 Mg-200 Iu) 1 tab PO QPM [facility] Docusate Sodium (Colace) 200 mg PO HS [facility] Last Admin: 11/26/18 21:39 Dose: 200 mg Enalapril Maleate (Vasotec) 10 mg PO DAILY [facility] Last Admin: 11/27/18 08:47 Dose: 10 mg Fentanyl (Duragesic) 1 patch TD Q72H [facility]; Protocol Gabapentin (Neurontin) 300 mg PO TID [facility] Last Admin: 11/27/18 08:48 Dose: 300 mg Home Med (Lipase/Protease/Amylase [Creon Dr 24,000 Units Capsule]) 2 cap PO TID [facility] Sodium Chloride (Sodium Chloride 0.9%) 500 mls @ 70 mls/hr IV .Q7H9M [facility] Last Admin: 11/27/18 03:30 Dose: 70 mls/hr Insulin Human Lispro (Humalog) 4 units SC DIN [facility] Lactulose (Enulose) 20 gm PO HS PRN PRN Reason: Constipation Levothyroxine Sodium (Synthroid) 75 mcg PO DAILY@0630 [facility] Last Admin: 11/27/18 06:25 Dose: 75 mcg Magnesium Hydroxide (Milk Of Magnesia) 30 ml PO MWF [facility] Last Admin: 11/27/18 08:46 Dose: Not Given Multivitamins/Minerals (Therapeutic-M Tab) 1 tab PO DAILY [facility] Last Admin: 11/27/18 08:50 Dose: 1 tab [id number] Ethyl Esters (Lovaza) 2 gm PO BID [facility] Last Admin: 11/27/18 08:47 Dose: 2 gm Ondansetron HCl (Zofran Tab) 8 mg PO Q8H PRN PRN Reason: Nausea/Vomiting Pantoprazole Sodium (Protonix Ec Tab) 20 mg PO QPM [facility] Polyethylene Glycol (Miralax) 17 gm PO DAILY [facility] Last Admin: 11/27/18 08:46 Dose: Not Given Prochlorperazine (Compazine Rectal Supp) 25 mg VT Q12H PRN PRN Reason: Nausea/Vomiting Simethicone (Mylicon Chew Tab) 80 mg PO TID [facility] Last Admin: 11/27/18 08:47 Dose: 80 mg Sitagliptin Phosphate (Januvia) 25 mg PO DAILY [facility] - Labs Labs: 11/27/18 05:45 11/26/18 12:12
--- NOTE | 2018-11-27 14:37 | CP.PCM.DIS ---
Provider - Provider Date of Admission: 11/26/18 10:20 Attending physician: Jameson Cihu MD Consults: 11/26/18 10:21 Hematology Oncology Consult Routine Comment: Consulting Provider: Rosalinda Fitzgerald Consulting Physician: Rosalinda Fitzgerald Reason for Consult: Devic's disease 11/26/18 19:51 Pastoral Care Referral Routine Comment: Physician Instructions: Reason For Exam: Routine 11/27/18 05:04 Case Management Referral Routine Comment: Physician Instructions: Reason For Exam: Reason for Referral: Discharge Planning Social Work Referral Routine Comment: protocol Physician Instructions: Reason For Exam: discharge planning Diagnosis - Discharge Diagnosis (1) Devic's disease Status: Chronic Priority: High (2) Chronic pain Status: Chronic Priority: High (3) Chronic paraplegia Status: Chronic Priority: High (4) DM II (diabetes mellitus, type II), controlled Status: Chronic Priority: Medium (5) General weakness Status: Chronic Priority: High (6) Hypothyroidism Status: Chronic Priority: Medium (7) Chronic depression Status: Chronic Priority: Medium Hospital Course - Lab Results Lab Results: Most Recent Lab Values WBC 4.6 K/uL (4.8-10.8) L 11/27/18 05:45 RBC 3.49 Mil/uL (3.80-5.20) L 11/27/18 05:45 Hgb 11.1 g/dL (12.0-16.0) L 11/27/18 05:45 Hct 33.5 % (34.0-47.0) L 11/27/18 05:45 MCV 96.1 fl (81.0-99.0) 11/27/18 05:45 MCH 31.9 pg (27.0-31.0) H 11/27/18 05:45 MCHC 33.2 g/dL (33.0-37.0) 11/27/18 05:45 RDW 13.6 % (11.5-14.5) 11/27/18 05:45 Plt Count 225 K/uL (130-400) 11/27/18 05:45 MPV 9.1 fl (7.2-11.7) 11/26/18 12:12 Neut % (Auto) 58.9 % (50.0-75.0) 11/26/18 12:12 Lymph % (Auto) 25.1 % (20.0-40.0) 11/26/18 12:12 Hopkins % (Auto) 9.1 % (0.0-10.0) 11/26/18 12:12 Eos % (Auto) 5.1 % (0.0-4.0) H 11/26/18 12:12 Baso % (Auto) 1.8 % (0.0-2.0) 11/26/18 12:12 Neut # (Auto) 3.2 K/uL (1.8-7.0) 11/26/18 12:12 Lymph # (Auto) 1.4 K/uL (1.0-4.3) 11/26/18 12:12 Hopkins # (Auto) 0.5 K/uL (0.0-0.8) 11/26/18 12:12 Eos # (Auto) 0.3 K/uL (0.0-0.7) 11/26/18 12:12 Baso # (Auto) 0.1 K/uL (0.0-0.2) 11/26/18 12:12 Sodium 137 mmol/l (132-148) 11/26/18 12:12 Potassium 4.9 MMOL/L (3.6-5.0) 11/26/18 12:12 Chloride 105 mmol/L (98-107) 11/26/18 12:12 Carbon Dioxide 25 mmol/L (22-30) 11/26/18 12:12 Anion Gap 12 (10-20) 11/26/18 12:12 BUN 22 mg/dl (7-17) H 11/26/18 12:12 Creatinine 1.2 mg/dl (0.7-1.2) 11/26/18 12:12 Est GFR ( Amer) 52 11/26/18 12:12 Est GFR (Non-Af Amer) 43 11/26/18 12:12 POC Glucose (mg/dL) 146 mg/dL (65-110) H 11/27/18 11:27 Random Glucose 126 mg/dL (65-105) H 11/26/18 12:12 Calcium 8.4 mg/dL (8.4-10.2) 11/26/18 12:12 Total Bilirubin 0.4 mg/dl (0.2-1.3) 11/26/18 12:12 AST 30 U/L (14-36) 11/26/18 12:12 ALT 33 U/L (9-52) 11/26/18 12:12 Alkaline Phosphatase 74 U/L (38-126) 11/26/18 12:12 Total Protein 6.6 G/DL (6.3-8.2) 11/26/18 12:12 Albumin 3.6 g/dL (3.5-5.0) 11/26/18 12:12 Globulin 3.0 gm/dL (2.2-3.9) 11/26/18 12:12 Albumin/Globulin Ratio 1.2 (1.0-2.1) 11/26/18 12:12 Discharge Exam - Head Exam Head Exam: NORMAL INSPECTION Discharge Plan - Follow Up Plan Condition: GOOD Disposition: REHAB FACILITY/REHAB UNIT Referrals: Jameson Chiu MD [Family Provider] -
[2018-11-27] MEDS ORDERED: Insulin Lispro (humaLOG) 100 Units/ml Inj SC SCH (17:00)
[2018-11-27] MEDS ORDERED: Pantoprazole 20 mg EC Tab PO SCH (18:00)
[2018-11-27] MEDS ORDERED: Calcium-Vit D 500 mg-200 Units Tab UD PO SCH (18:00)
== END 2018-11-27 15:38 ==
LOC: H.MEDSURG1 10:20 → INTOOBSV 10:20 → H.MEDSURG1 18:37
PROVIDERS: ADMIT Internal Medicine Pulmonary Disease; ATTEND Internal Medicine Pulmonary Disease
DX: G36.0 Neuromyelitis optica [Devic] (principal); E03.9 Hypothyroidism, unspecified; E11.9 Type 2 diabetes mellitus without complications; E78.5 Hyperlipidemia, unspecified; F03.90 Unspecified dementia, unspecified severity, without behavioral disturbance, psychotic disturbance, mood disturbance, and anxiety; F32.9 Major depressive disorder, single episode, unspecified; G35 Multiple sclerosis; G82.20 Paraplegia, unspecified; G89.29 Other chronic pain; I10 Essential (primary) hypertension; R53.1 Weakness; Z88.3 Allergy status to other anti-infective agents
CPT/HCPCS: 36415; 80053; 82948; 85025; 85027; 96365; 96367; 96375; 96416; G0378; J1100; J1200; J2405; J7040; J9312

== ENCOUNTER 2019-01-21 10:52 | Observation (INO) | payer MEDICARE, MEDICAID ==
[2019-01-21] MEDS ORDERED: Dexamethasone 10 MG in Dextrose 5% In Water 50 ML IV ONE (12:08)
[2019-01-21] MEDS: Dorzolamide 2% Ophth Soln OU SCH ×2 (13:23→16:42)
[2019-01-21] MEDS ORDERED: RITUXIMAB IV ONE (15:00)
[2019-01-21] MEDS ORDERED: SODIUM CHLORIDE 0.9% IV ONE (15:00)
[2019-01-21] MEDS: Sodium Chloride 0.9% 500 ML IV SCH ×2 (15:30→22:37)
--- NOTE | 2019-01-21 15:35 | CP.PCM.HP ---
History of Present Illness - History of Present Illness History of Present Illness: CC: Deena's Disease. 83 y/o F, with multiple chronic medical condition including: Devic's Disease, Paraplegia, mild Dementia, Hypothyroidism, DMII, Dyslipidemia, Chronic depression. Pt is a resident at [facility] and was brought to [facility] via EMS with a scheduled admission (q 2 months) to have Rituxan infusion associated to her chronic generalized pain. Worsening symptoms: Increased anxiety, Depression. Aggravated factor: Exercise/movements. Pt denied: Fever, chills, n/v/d, abdominal pain, urinary symptoms, CP, palpitations, SOB, cough, sick contact. Present on Admission - Present on Admission Any Indicators Present on Admission: No Review of Systems - Constitutional Constitutional: Weight Loss, Weakness, Other (Glaucoma L ete) - EENT Eyes: Requires Corrective Lenses Ears: Other (negative) Nose/Mouth/Throat: Other (negative) - Cardiovascular Cardiovascular: Slow Heart Rate - Respiratory Respiratory: Other (negative) - Gastrointestinal Gastrointestinal: Constipation, Heartburn - Genitourinary Genitourinary: Urinary Incontinence - Musculoskeletal Musculoskeletal: Arthralgias, Back Pain - Integumentary Integumentary: Other (negative) - Neurological Neurological: Weakness - Psychiatric Psychiatric: Anxiety, Depression - Endocrine Endocrine: Other (negative) - Hematologic/Lymphatic Hematologic: Other (negative) Past Patient History - Tetanus Immunizations Tetanus Immunization: Unknown - Past Medical History & Family History Past Medical History?: Yes Pertinent Family History: Unknown - Past Social History Smoking Status: Never Smoked Alcohol: None Drugs: Denies Home Situation {Lives}: Long Term - CARDIAC Hx Cardiac Disorders: Yes (HTN,HLD) - PULMONARY Hx Respiratory Disorders: No Hx Chronic Obstructive Pulmonary Disease (COPD): No - NEUROLOGICAL Hx Neurological Disorder: Yes (MS) Hx Dementia: Yes Hx Multiple Sclerosis: Yes Other/Comment: Devic's Disease - HEENT Hx HEENT Problems: Yes Hx Glaucoma: Yes (L eye) - RENAL Hx Chronic Kidney Disease: No - ENDOCRINE/METABOLIC Hx Endocrine Disorders: Yes (DM2,HYPOTHYROID) - HEMATOLOGICAL/ONCOLOGICAL Hx Blood Disorders: Yes Hx AIDS: No (denies) Hx Chemotherapy: Yes Hx Human Immunodeficiency Virus (HIV): No (denies) Hx Shingles: Yes - INTEGUMENTARY Hx Dermatological Problems: No - MUSCULOSKELETAL/RHEUMATOLOGICAL Hx Musculoskeletal Disorders: Yes (ARTHRITIS) Hx Arthritis: Yes Hx Falls: No - GASTROINTESTINAL Hx Gastrointestinal Disorders: Yes Hx Gastritis: Yes - GENITOURINARY/GYNECOLOGICAL Hx Genitourinary Disorders: Yes (UTI) Hx Incontinence: Yes - PSYCHIATRIC Hx Psychophysiologic Disorder: Yes (ANXIETY,DEPRESSION) Hx Substance Use: No - SURGICAL HISTORY Hx Surgeries: No - ANESTHESIA Hx Anesthesia: No Hx Anesthesia Reactions: No Hx Malignant Hyperthermia: No Meds Allergies/Adverse Reactions: Allergies Allergy/AdvReac Type Severity Reaction Status Date / Time ciprofloxacin [From Cipro] Allergy RASH Verified 10/23/17 08:24 ciprofloxacin HCl Allergy RASH Verified 10/23/17 08:24 [From Cipro] Physical Exam - Constitutional Appears: No Acute Distress, Chronically Ill - Head Exam Head Exam: NORMAL INSPECTION - Eye Exam Eye Exam: PERRL - ENT Exam ENT Exam: Normal Exam - Neck Exam Neck exam: Positive for: Normal Inspection - Respiratory Exam Respiratory Exam: NORMAL BREATHING PATTERN - Cardiovascular Exam Cardiovascular Exam: REGULAR RHYTHM - GI/Abdominal Exam GI & Abdominal Exam: Normal Bowel Sounds, Soft - Extremities Exam Additional comments: Paralysis BLE with no sensation - Neurological Exam Neurological exam: Alert, Oriented x3 Additional comments: R-L foot droop, sensory deficit BLE - Psychiatric Exam Psychiatric exam: Anxious, Depressed - Skin Skin Exam: Warm Results - Vital Signs Recent Vital Signs: Last Vital Signs Temp 97.8 F 01/21/19 11:34 Pulse 45 L 01/21/19 11:34 Resp 19 01/21/19 11:34 BP 100/44 L 01/21/19 11:34 Pulse Ox 96 01/21/19 11:34 reviewed Srinivasan Assessment & Plan (1) Devic's disease Status: Chronic Priority: High (2) Chronic pain Status: Chronic Priority: High (3) General weakness Status: Chronic Priority: High (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 Hematology consult - Date & Time Date: 01/21/19 Time: 13:00
[2019-01-21] MEDS: Omega-3-Acid Ethyl Esters 1 GM Cap PO SCH (16:42)
[2019-01-21] MEDS: Insulin Regular 100 units/ml SC SCH ×2 (16:59→21:23)
[2019-01-21 17:48] VITALS: RESP 18
[2019-01-21] MEDS ORDERED: Pantoprazole 20 mg EC Tab PO SCH (18:00)
[2019-01-22] MEDS: Sodium Chloride 0.9% 500 ML IV SCH (05:03)
[2019-01-22] MEDS ORDERED: Levothyroxine 75 MCG TAB PO SCH (06:30)
[2019-01-22 08:33] VITALS: TEMP 97.6; O2SAT 98
--- NOTE | 2019-01-22 08:45 | CP.PCM.CON ---
History of Present Illness - History of Present Illness History of Present Illness: This is a 83 yrs old female who was diagnosed to have devics disease 5 yrs sgo. She failed other treatments so was placed on Rituxan with which she has done well. she however had a reaction to the rituxan when it was given according to the protocol, but did well when given over 12 hrs. She has been tolerating it well since. She was given the chemo yesterday and has tolerated it well. P/H HTN, Hypercholesterolemia, DM, Past Patient History - Tetanus Immunizations Tetanus Immunization: Unknown - Past Medical History & Family History Past Medical History?: Yes - Past Social History Smoking Status: Never Smoked Alcohol: None Drugs: Denies Home Situation {Lives}: Shelter - CARDIAC Hx Cardiac Disorders: Yes (HTN,HLD) - PULMONARY Hx Respiratory Disorders: No Hx Chronic Obstructive Pulmonary Disease (COPD): No - NEUROLOGICAL Hx Neurological Disorder: Yes (MS) Hx Dementia: Yes Hx Multiple Sclerosis: Yes Other/Comment: Devic's Disease - HEENT Hx HEENT Problems: Yes Hx Glaucoma: Yes (L eye) - RENAL Hx Chronic Kidney Disease: No - ENDOCRINE/METABOLIC Hx Endocrine Disorders: Yes (DM2,HYPOTHYROID) - HEMATOLOGICAL/ONCOLOGICAL Hx Blood Disorders: Yes Hx AIDS: No (denies) Hx Chemotherapy: Yes Hx Human Immunodeficiency Virus (HIV): No (denies) Hx Shingles: Yes - INTEGUMENTARY Hx Dermatological Problems: No - MUSCULOSKELETAL/RHEUMATOLOGICAL Hx Musculoskeletal Disorders: Yes (ARTHRITIS) Hx Arthritis: Yes Hx Falls: No - GASTROINTESTINAL Hx Gastrointestinal Disorders: Yes Hx Gastritis: Yes - GENITOURINARY/GYNECOLOGICAL Hx Genitourinary Disorders: Yes (UTI) Hx Incontinence: Yes - PSYCHIATRIC Hx Psychophysiologic Disorder: Yes (ANXIETY,DEPRESSION) Hx Substance Use: No - SURGICAL HISTORY Hx Surgeries: No - ANESTHESIA Hx Anesthesia: No Hx Anesthesia Reactions: No Hx Malignant Hyperthermia: No Meds Allergies/Adverse Reactions: Allergies Allergy/AdvReac Type Severity Reaction Status Date / Time ciprofloxacin [From Cipro] Allergy RASH Verified 10/23/17 08:24 ciprofloxacin HCl Allergy RASH Verified 10/23/17 08:24 [From Cipro] - Medications Medications: Current Medications Atorvastatin Calcium (Lipitor) 10 mg PO HS [facility] Last Admin: 01/21/19 21:24 Dose: 10 mg Dorzolamide HCl (Trusopt) 1 drop OU TID [facility] Last Admin: 01/21/19 16:42 Dose: 1 drop Enalapril Maleate (Vasotec) 10 mg PO DAILY [facility] Gabapentin (Neurontin) 300 mg PO TID [facility] Last Admin: 01/21/19 16:42 Dose: 300 mg Sodium Chloride (Sodium Chloride 0.9%) 500 mls @ 70 mls/hr IV .[id number] [facility] Last Admin: 01/22/19 05:03 Dose: 70 mls/hr Insulin Human Regular (Humulin R) 0 units SC ACHS [facility]; Protocol Last Admin: 01/21/19 21:23 Dose: Not Given Lactulose (Enulose) 20 gm PO HS PRN PRN Reason: Constipation Levothyroxine Sodium (Synthroid) 75 mcg PO DAILY@0630 [facility] Last Admin: 01/22/19 05:38 Dose: 75 mcg Multivitamins/Minerals (Therapeutic-M Tab) 1 tab PO DAILY [facility] [id number] Ethyl Esters (Lovaza) 2 gm PO BID [facility] Last Admin: 01/21/19 16:42 Dose: 2 gm Pantoprazole Sodium (Protonix Ec Tab) 20 mg PO QPM [facility] Last Admin: 01/21/19 18:38 Dose: 20 mg Polyethylene Glycol (Miralax) 17 gm PO DAILY [facility] Physical Exam - Additional Findings Additional findings: Physical exam; Alert, well oriented in no acute distress neck; supple, no adenopathy Chest; clear, no reles no rales Heart; RSR, no murmur Abd; Soft, no mass no h/s megaly Results - Vital Signs Recent Vital Signs: Last Vital Signs Temp 97.4 F L 01/22/19 00:00 Pulse 75 01/22/19 00:00 Resp 18 01/22/19 00:00 BP 143/67 01/22/19 00:00 Pulse Ox 96 01/22/19 00:00 - Labs Labs: Laboratory Results - last 24 hr 01/21/19 01/21/19 01/21/19 16:12 16:44 21:21 POC Glucose (mg/dL) 102 114 H 274 H 01/21/19 01/22/19 21:29 05:32 POC Glucose (mg/dL) 287 H 191 H Assessment & Plan - Assessment and Plan (Free Text) Assessment: Impression; Devics disease Plan: Plan; Pt can be discharged when the rituxan infusion is finished
[2019-01-22] MEDS ORDERED: POLYETHYLENE GLYCOL 3350 17 GM/Dose PACKET PO SCH (09:00)
[2019-01-22] MEDS ORDERED: Multivitamin With Minerals Tab PO SCH (09:00)
[2019-01-22 09:16] VITALS: BP 141/49; PULSE 56
[2019-01-22] MEDS: Omega-3-Acid Ethyl Esters 1 GM Cap PO SCH (09:16)
[2019-01-22] MEDS: Insulin Regular 100 units/ml SC SCH ×2 (09:16→12:27)
[2019-01-22] MEDS: Dorzolamide 2% Ophth Soln OU SCH ×2 (09:17→12:26)
--- NOTE | 2019-01-22 15:31 | CP.PCM.DIS ---
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
== END 2019-01-22 13:55 ==
LOC: H.MEDSURG1 11:05
PROVIDERS: ADMIT Internal Medicine Pulmonary Disease; ATTEND Internal Medicine Pulmonary Disease
DX: G36.0 Neuromyelitis optica [Devic] (principal); G82.20 Paraplegia, unspecified; G89.29 Other chronic pain; F32.9 Major depressive disorder, single episode, unspecified; F41.9 Anxiety disorder, unspecified; E03.9 Hypothyroidism, unspecified; E11.9 Type 2 diabetes mellitus without complications; E78.5 Hyperlipidemia, unspecified; F03.90 Unspecified dementia, unspecified severity, without behavioral disturbance, psychotic disturbance, mood disturbance, and anxiety; K29.50 Unspecified chronic gastritis without bleeding; E78.00 Pure hypercholesterolemia, unspecified; I10 Essential (primary) hypertension; R53.1 Weakness
CPT/HCPCS: 82948; 96413; 96415; G0378; J1100; J2405; J7040; J9312